=== PATIENT | female | born 2000 | race Hispanic/Latino ===

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

== ENCOUNTER 2021-12-25 20:35 | Emergency (ER) | payer BC ==
--- OUTSIDE RECORDS SUMMARY | 2021-12-25 20:38 | XMS REPORT | Continuity of Care Document ---
:2000 Author Organization [facility] t Address [address] [place] [address] Dr. Montemayor [address] [place] [id number] Care Team Providers Name Role Phone Garima Florez Attending Clinician Unavailable Problems This patient has no known problems. Allergies, Adverse Reactions, Alerts This patient has no known allergies or adverse reactions. Medications This patient has no known medications. Procedures This patient has no known procedures. Encounters Start End Encounter Admission Attending Care Care Encounter Source Date/Time Date/Time Type Type Clinicians Facility Department ID 2021-11-16 Outpatient ALIS Florez [facility] [id number] 11:48:14 Garima [id number] [facility] 2021-11-[address] [facility]amANA[facility] [id number] 11:48:09 [facility] [id number] [facility] 2021-11-[address] [facility]amJHON [facility] [id number] 11:42:04 Garima [id number] [facility] Results This patient has no known results.
[2021-12-25] MEDS ORDERED: MORPHINE 4 MG/ML SYR ONE (22:33)
[2021-12-25] MEDS ORDERED: ONDANSETRON 4 MG/2 ML VIAL ONE (22:34)
[2021-12-25] MEDS ORDERED: NA CHLORIDE 0.9% 1,000 ML ONE (22:34)
[2021-12-25 23:14] LABS: Urine Blood Negative (Negative); Urine Glucose Negative (Negative); Urine Protein Negative (Negative); Urine Specific Gravity >=1.030 (1.005-1.030); Urine pH 5.5 (5.0-7.0)
[2021-12-25 23:27] LABS: Protime INR 1.05
[2021-12-25 23:28] LABS: Absolute Lymphocytes (CBC) 2.8 K/uL (0.7-4.9); MPV 8.7 fL (7.6-11.3); RBC Red Blood Cell Count 4.81 M/uL (3.86-4.86)
[2021-12-25 23:31] LABS: Urine Bacteria <20 /HPF (<20); Urine RBC <5 /HPF (NONE SEEN); Urine Urothelial Cells <5 /HPF (NONE SEEN)
[2021-12-25 23:32] LABS: Urine Specific Gravity/Preg >1.030 (1.005-1.030)
[2021-12-25 23:34] LABS: Barbiturates NEGATIVE (NEGATIVE); Benzodiazepines NEGATIVE (NEGATIVE); Cocaine NEGATIVE (NEGATIVE); METHAMPHETAM NEGATIVE (NEGATIVE); Methadone NEGATIVE (NEGATIVE); Opiates NEGATIVE (NEGATIVE); Phencyclidine NEGATIVE (NEGATIVE); THC Cannibis NEGATIVE (NEGATIVE)
[2021-12-25 23:43] LABS: ALT/SGPT 31 U/L (12-78); AST/SGOT 14 U/L (15-37); Albumin 3.6 g/dL (3.4-5.0); Alkaline Phosphatase 83 U/L (45-117); BUN Blood Urea Nitrogen 16 mg/dL (7-18); Bicarbonate 24 mmol/L (21-32); Bilirubin Total 0.1 mg/dL (0.2-1.0); Creatine Phosphokinase 95 U/L (26-192); Glucose Level 117 mg/dL (74-106); NT PRO-BNP 13 pg/mL (<125); Potassium 3.7 mmol/L (3.5-5.1); Protein, Total 7.5 g/dL (6.4-8.2); Sodium Level 138 mmol/L (136-145)
[2021-12-25 23:58] LABS: Bilirubin Direct < 0.1 mg/dL (0-0.2); Troponin High Sensitivity < 3.00 pg/mL (<58.9)
[2021-12-26] MEDS ORDERED: MORPHINE 4 MG/ML SYR ONE (01:23)
[2021-12-26 01:26] LABS: Anisocytosis 2+; Blood Morphology Comment NOTED (NOT SEEN); Platelet Estimate ADEQ; White Blood Cell Scan OK (OK)
[2021-12-26] MEDS ORDERED: KETOROLAC 30 MG/ML INJ ONE (01:27)
--- NOTE | 2021-12-26 01:36 | ER ---
Nurse's Notes [facility] Name: Chayo Jung Age: 21 yrs Sex: Female : 2000 Arrival Date: 12/25/2021 Time: 20:38 Bed 16 Private MD: Diagnosis: Low back pain;Chest pain, unspecified;Constipation Presentation: 12/25 21:08 Chief complaint: Patient states: I having really bad back pains, I've had them for a vc1 few months now, It's now getting worse, it feels like there's a knife in my back stabbing me. I'm now having chest pain on and off when I breath. Coronavirus screen: Vaccine status: Patient reports receiving the 2nd dose of the covid vaccine. Moderna At this time, the client does not indicate any symptoms associated with coronavirus-19. Ebola Screen: No symptoms or risks identified at this time. Initial Sepsis Screen: Does the patient meet any 2 criteria? No. Patient's initial sepsis screen is negative. Does the patient have a suspected source of infection? No. Patient's initial sepsis screen is negative. Risk Assessment: Do you want to hurt yourself or someone else? Patient reports no desire to harm self or others. Onset of symptoms is unknown. 21:08 Method Of Arrival: Ambulatory vc1 21:08 Acuity: RJ 3 vc1 Triage Assessment: 21:11 General: Appears in no apparent distress. uncomfortable, Behavior is calm, cooperative, vc1 appropriate for age. Pain: Complains of pain in right mid back Pain radiates to left mid back Pain currently is 10 out of 10 on a pain scale. Quality of pain is described as sharp, stabbing. Neuro: Level of Consciousness is awake, alert, obeys commands, Oriented to person, place, time, situation, none. Cardiovascular: Reports chest pain, shortness of breath, With breathing Patient's skin is warm and dry. GI: Patient currently denies abdominal pain, nausea. Musculoskeletal: Circulation, motion, and sensation intact. Reports pain in right mid back. 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 - Social history:: Smoking status: Patient denies any tobacco usage or history of. Screenin:15 Abuse screen: Denies threats or abuse. Nutritional screening: No deficits noted. vc1 Tuberculosis screening: No symptoms or risk factors identified. Fall Risk None identified. Assessment: 21:50 General: Appears uncomfortable, Behavior is calm, cooperative. Pain: Complains of pain ll3 in right flank and left mid back and back and right mid back, chest. Neuro: Level of Consciousness is awake, alert, obeys commands, Oriented to person, place, time, situation. Cardiovascular: Reports chest pain, Patient's skin is warm and dry. Respiratory: Respiratory effort is even, unlabored, Respiratory pattern is regular, symmetrical. Derm: Skin is pink, warm \\T\\ dry. Musculoskeletal: Circulation, motion, and sensation intact. Reports pain in left mid back and right mid back since Years. Pain is 8 out of 10 on a pain scale. 23:41 Reassessment: Patient and/or family updated on plan of care and expected duration. Pain ll3 level reassessed. Patient is alert, oriented x 3, equal unlabored respirations, skin warm/dry/pink. Pain is feeling better, 5/10. 07 00:52 Reassessment: Patient and/or family updated on plan of care and expected duration. Pain ll3 level reassessed. Patient is alert, oriented x 3, equal unlabored respirations, skin warm/dry/pink. States pain is 6/10, declines pain meds, states "It only hurts when I move". 01:52 Reassessment: Patient and/or family updated on plan of care and expected duration. Pain ll3 level reassessed. Patient is alert, oriented x 3, equal unlabored respirations, skin warm/dry/pink. Patient states feeling better. 01:52 GI: Bowel sounds present X 4 quads. Abd is soft and non tender X 4 quads. ll3 Vital Signs: 12/25 21:08 BP 123 / 77; Pulse 72; Resp 18; Temp 98.4(O); Pulse Ox 99% on R/A; Weight 81.65 kg; vc1 Height 5 ft. 6 in. (167.64 cm); Pain 10/10; 22:45 BP 117 / 83; Pulse 72; Resp 15; Pulse Ox 98% on R/A; ll3 23:44 BP 119 / 54; Pulse 66; Resp 16; Pulse Ox 100% on R/A; ll3 12/26 00:30 BP 118 / 62; Pulse 59; Resp 15; Pulse Ox 99% on R/A; ll3 01:52 BP 98 / 60; Pulse 78; Resp 16; Pulse Ox 99% on R/A; ll3 12/25 21:08 Body Mass Index 29.05 (81.65 kg, 167.64 cm) vc1 ED Course: 12/25 20:38 Patient arrived in ED. jj6 21:11 Triage completed. vc1 21:11 Arm band placed on right wrist. vc1 21:49 Santiago Meléndez MD is Attending Physician. mh7 22:35 XRAY Chest (1 view) In Process Unspecified. EDMS 23:22 Basic Metabolic Panel Sent. ll3 12/26 00:03 Antonio Glass, RN is Primary Nurse. ll3 00:34 CT Chest For PE Angio In Process Unspecified. EDMS 00:39 CT Abd/Pelvis - IV Contrast Only In Process Unspecified. EDMS 01:52 Patient has correct armband on for positive identification. Bed in low position. Call ll3 light in reach. Side rails up X 1. 02:12 No provider procedures requiring assistance completed. IV discontinued, intact, ll3 bleeding controlled, No redness/swelling at site. Pressure dressing applied. Administered Medications: 12/25 23:10 Drug: NS 0.9% 1000 ml Route: IV; Rate: 1000 ml; Site: right antecubital; vc1 12/26 01:51 Follow up: Response: No adverse reaction; IV Status: Completed infusion; IV Intake: ll3 1000ml 12/25 23:10 Drug: morphine 4 mg Route: IVP; Site: right antecubital; vc1 23:39 Follow up: Response: No adverse reaction ll3 23:10 Drug: Zofran (Ondansetron) 4 mg Route: IVP; Site: right antecubital; vc1 23:39 Follow up: Response: No adverse reaction 3 12/26 01:29 Drug: Ketorolac 30 mg Route: IVP; Site: right antecubital; 3 01:49 Follow up: Response: No adverse reaction 3 Intake: 01:51 IV: 1000ml; Total: 1000ml. 3 Outcome: 01:35 Discharge ordered by . tito 02:13 Discharged to home ambulatory. ll3 02:13 Condition: good 02:13 Discharge instructions given to patient, Instructed on discharge instructions, follow up and referral plans. medication usage, Demonstrated understanding of instructions, follow-up care, medications, Prescriptions given X 3. 02:13 Patient left the ED. 3 Signatures: Dispatcher [employer] EDMS Santiago Meléndez MD MD mh7 Sabra Michelle Lynsea RN RN ll3 Kaylyn Murguia RN RN vc1
--- NOTE | 2021-12-26 01:36 | EDPHYS ---
Physician Documentation [facility] Name: Chayo Jung Age: 21 yrs Sex: Female : 2000 Arrival Date: 12/25/2021 Time: 20:38 Bed 16 Private MD: ED Physician Santiago Meléndez HPI: 12/25 22:18 This 21 yrs old Female presents to ER via Ambulatory with complaints of mh7 Abdominal Pain, Chest Pressure, Low Back Pain. 22:19 The patient complains of pain in the right flank. The pain does not radiate. Onset: The mh7 symptoms/episode began/occurred 5 month(s) ago, and became worse 2 week(s) ago. Modifying factors: The symptoms are alleviated by nothing. the symptoms are aggravated by movement, palpation/percussion. Associated signs and symptoms: Pertinent negatives: diarrhea, dizziness, dysuria, fever, urinary frequency, headache, hematuria, nausea, pain radiating to the lower extremities, vomiting. Severity of pain: At its worst the pain was moderate 5 day(s) ago, in the emergency department the pain has improved moderately. 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 - Social history:: Smoking status: Patient denies any tobacco usage or history of. ROS: 22:19 Constitutional: Negative for fever, chills, and weight loss, Eyes: Negative for injury, mh7 pain, redness, and discharge, ENT: Negative for injury, pain, and discharge, Neck: Negative for injury, pain, and swelling. 22:19 Respiratory: Negative for shortness of breath, cough, wheezing, and pleuritic chest pain, Abdomen/GI: Negative for abdominal pain, nausea, vomiting, diarrhea, and constipation, : Negative for injury, bleeding, discharge, and swelling, MS/Extremity: Negative for injury and deformity, Skin: Negative for injury, rash, and discoloration, Neuro: Negative for headache, weakness, numbness, tingling, and seizure, Psych: Negative for depression, anxiety, suicide ideation, homicidal ideation, and hallucinations, Allergy/Immunology: Negative for hives, rash, and allergies, Endocrine: Negative for neck swelling, polydipsia, polyuria, polyphagia, and marked weight changes, Hematologic/Lymphatic: Negative for swollen nodes, abnormal bleeding, and unusual bruising. 22:19 Cardiovascular: Positive for chest pain, Intermittent over the past couple months, Negative for edema, orthopnea, palpitations, paroxysmal nocturnal dyspnea. Exam: 22:19 Constitutional: This is a well developed, well nourished patient who is awake, alert, mh7 and in no acute distress. Head/Face: Normocephalic, atraumatic. Eyes: Pupils equal round and reactive to light, extra-ocular motions intact. Lids and lashes normal. Conjunctiva and sclera are non-icteric and not injected. Cornea within normal limits. Periorbital areas with no swelling, redness, or edema. Neck: Trachea midline, no thyromegaly or masses palpated, and no cervical lymphadenopathy. Supple, full range of motion without nuchal rigidity, or vertebral point tenderness. No Meningismus. Chest/axilla: Normal chest wall appearance and motion. Nontender with no deformity. No lesions are appreciated. Cardiovascular: Regular rate and rhythm with a normal S1 and S2. No gallops, murmurs, or rubs. Normal PMI, no JVD. No pulse deficits. Respiratory: Lungs have equal breath sounds bilaterally, clear to auscultation and percussion. No rales, rhonchi or wheezes noted. No increased work of breathing, no retractions or nasal flaring. Abdomen/GI: Soft, non-tender, with normal bowel sounds. No distension or tympany. No guarding or rebound. No evidence of tenderness throughout. Skin: Warm, dry with normal turgor. Normal color with no rashes, no lesions, and no evidence of cellulitis. MS/ Extremity: Pulses equal, no cyanosis. Neurovascular intact. Full, normal range of motion. Neuro: Awake and alert, GCS 15, oriented to person, place, time, and situation. Cranial nerves II-XII grossly intact. Motor strength 5/5 in all extremities. Sensory grossly intact. Cerebellar exam normal. Normal gait. Psych: Awake, alert, with orientation to person, place and time. Behavior, mood, and affect are within normal limits. 22:19 Back: ROM is normal, normal spinal alignment noted, CVA tenderness, that is moderate, is noted on the right, muscle spasm, is not present, Straight leg raises: of both lower extremities does not illicit pain. 23:02 ECG was reviewed by the Attending Physician. [facility] Vital Signs: 21:08 BP 123 / 77; Pulse 72; Resp 18; Temp 98.4(O); Pulse Ox 99% on R/A; Weight 81.65 kg; vc1 Height 5 ft. 6 in. (167.64 cm); Pain 10/10; 22:45 BP 117 / 83; Pulse 72; Resp 15; Pulse Ox 98% on R/A; ll3 23:44 BP 119 / 54; Pulse 66; Resp 16; Pulse Ox 100% on R/A; ll3 12/26 00:30 BP 118 / 62; Pulse 59; Resp 15; Pulse Ox 99% on R/A; ll3 01:52 BP 98 / 60; Pulse 78; Resp 16; Pulse Ox 99% on R/A; ll3 12/25 21:08 Body Mass Index 29.05 (81.65 kg, 167.64 cm) vc1 MDM: 01:33 Differential diagnosis: nephrolithiasis, pyelonephritis, UTI, Chest pain, PE. Data [facility] reviewed: vital signs, nurses notes, lab test result(s), cardiac enzymes, CBC, electrolytes, urinalysis, UPT: negative EKG, radiologic studies, CT scan, plain films. Data interpreted: Pulse oximetry: on room air is 99 %. Interpretation: normal. Counseling: I had a detailed discussion with the patient and/or guardian regarding: the historical points, exam findings, and any diagnostic results supporting the discharge/admit diagnosis, lab results, radiology results, the need for outpatient follow up, to return to the emergency department if symptoms worsen or persist or if there are any questions or concerns that arise at home. Response to treatment: the patient's symptoms have markedly improved after treatment. 01:35 Patient medically screened. [facility] 12/25 22:13 Order name: Basic Metabolic Panel [facility] 12/25 22:13 Order name: CBC with Diff; Complete Time: 01:32 [facility] 12/25 22:13 Order name: LFT's; Complete Time: 00:03 [facility] 12/25 22:13 Order name: Magnesium; Complete Time: 00:03 [facility] 12/25 22:13 Order name: NT PRO-BNP; Complete Time: 00:03 [facility] 12/25 22:13 Order name: PT-INR; Complete Time: 23:36 [facility] 12/25 22:13 Order name: Troponin HS; Complete Time: 00:03 [facility] 12/25 22:13 Order name: Urine Drug Screen; Complete Time: 23:36 [facility] 12/25 22:13 Order name: Urine Microscopic Only; Complete Time: 23:36 [facility] 12/25 22:14 Order name: Basic Metabolic Panel; Complete Time: 00:03 [facility] 12/25 23:12 Order name: Urine Dipstick-Ancillary; Complete Time: 23:36 [facility] 12/25 23:17 Order name: Urine --Ancillary (enter results); Complete Time: 23:36 [facility] 12/25 23:23 Order name: Creatine Phosphokinase; Complete Time: 00:03 [facility] 12/25 22:13 Order name: XRAY Chest (1 view) [facility] 12/25 22:13 Order name: EKG; Complete Time: 22:14 [facility] 12/25 22:13 Order name: Cardiac monitoring; Complete Time: 01:53 [facility] 12/25 22:13 Order name: EKG - Nurse/Tech; Complete Time: 23:22 [facility] 12/25 22:13 Order name: IV Saline Lock; Complete Time: 23:22 [facility] 12/25 22:13 Order name: Labs collected and sent; Complete Time: 23:22 [facility] 12/25 22:13 Order name: O2 Per Protocol; Complete Time: 23:22 [facility] 12/25 22:13 Order name: O2 Sat Monitoring; Complete Time: 23:22 [facility] 12/25 22:13 Order name: Urine Dipstick-Ancillary (obtain specimen); Complete Time: 23:21 [facility] 12/25 23:33 Order name: CBC Smear Scan; Complete Time: 01:32 [facility] 12/25 23:40 Order name: CT Chest For PE Angio [facility] 12/25 23:40 Order name: CT Abd/Pelvis - IV Contrast Only [facility] 12/25 22:13 Order name: Urine Test (obtain specimen); Complete Time: 23:22 7 EC/06 23:02 Rate is 65 beats/min. Rhythm is regular, Normal Sinus Rhythm with No ectopy. QRS [place] [facility] is Normal. RI interval is normal. QRS interval is normal. QT interval is normal. No Q waves. T waves are Normal. No ST changes noted. Clinical impression: Normal ECG. Administered Medications: 23:10 Drug: NS 0.9% 1000 ml Route: IV; Rate: 1000 ml; Site: right antecubital; vc1 12/26 01:51 Follow up: Response: No adverse reaction; IV Status: Completed infusion; IV Intake: ll3 1000ml 12/25 23:10 Drug: morphine 4 mg Route: IVP; Site: right antecubital; vc1 23:39 Follow up: Response: No adverse reaction 3 23:10 Drug: Zofran (Ondansetron) 4 mg Route: IVP; Site: right antecubital; vc1 23:39 Follow up: Response: No adverse reaction [facility] 12/26 01:29 Drug: Ketorolac 30 mg Route: IVP; Site: right antecubital; ll3 01:49 Follow up: Response: No adverse reaction 3 Disposition Summary: 12/26/21 01:35 Discharge Ordered Location: Home [facility] Problem: an ongoing problem [facility] Symptoms: have improved [facility] Condition: Stable [facility] Diagnosis - Low back pain 7 - Chest pain, unspecified 7 - Constipation 7 Followup: [facility] - With: Private Physician - When: 2 - 3 days - Reason: Worsening of condition, Recheck today's complaints, Continuance of care, Re-evaluation by your physician Discharge Instructions: - Discharge Summary Sheet 7 - High-Fiber Diet mh7 - Musculoskeletal Pain mh7 - Constipation, Adult, [id number] mh7 - Nonspecific Chest Pain, Adult, [id number] [facility] Forms: - Medication Reconciliation Form 7 - Thank You Letter 7 - Antibiotic Education 7 - Prescription Opioid Use 7 - Work release form ll3 - Family Work Release ll3 Prescriptions: - Dulcolax (bisacodyl) 10 mg Rectal suppository - insert 1 suppository by RECTAL route once daily as needed for constipation; 5 7 suppository; Refills: 0, Product Selection Permitted - Colace 100 mg Oral Tablet - take 1 tablet by ORAL route every 12 hours; 14 tablet; Refills: 0, Product [facility] Selection Permitted - Lactulose 10 gram/15 mL Oral Solution - take 30 milliliters by ORAL route once daily As needed; 150 milliliter; mh7 Refills: 0, Product Selection Permitted Signatures: Dispatcher [employer] Santiago Whitman MD MD mh7 Antonio Glass RN RN ll3 Kaylyn Murguia RN RN vc1 Corrections: (The following items were deleted from the chart) 12/25 23:23 22:23 CREATINE PHOSPHOKINASE+[id number].BRZ ordered. BETSYLA BETSYLA
[2021-12-26 02:33] VITALS: TEMP 98.4
[2021-12-26 02:37] VITALS: O2SAT 99
[2021-12-26 02:38] VITALS: BP 98/60
--- NOTE | 2021-12-26 08:24 | RAD REPORT ---
EXAM DESCRIPTION: RAD - Chest Single View - 12/25/2021 10:35 pm CLINICAL HISTORY: CHEST PAIN, left side COMPARISON: None TECHNIQUE: AP portable chest image was obtained 12/25/2021 10:35 pm . FINDINGS: Lungs are clear. Heart and vasculature are normal. No measurable pleural effusion and no p neumothorax. No acute bony abnormality seen. No acute aortic findings suspected. IMPRESSION: No acute cardiopulmonary process.
--- NOTE | 2021-12-26 13:31 | RAD REPORT ---
EXAM DESCRIPTION: CT - Abdomen Pelvis W Contrast - 12/26/2021 5:24 am CLINICAL HISTORY: 21 years Female, FLANK PAIN TECHNIQUE: Helical CT axial images are obtained from the lung bases to the pubic symphysis without I V contrast. No oral contrast was administered. Multiplanar reconstruction. This exam was performed ac cording to our departmental dose-optimization program, which includes automated exposure control, adj ustment of the mA and/or kV according to patient size and/or use of iterative reconstruction techniqu e. COMPARISON: 01/05/2018 FINDINGS: LUNG BASES: No basilar consolidation or effusions. LIVER: Normal in size. Normal attenuation. No focal masses. HEPATOBILIARY: Normal-appearing gallbladder. No intra- or extrahepatic ductal dilatation. SPLEEN: Normal size. PANCREAS: Normal size and contour. No focal mass. ADRENAL GLANDS: Normal size. No adrenal masses. KIDNEYS: Bilateral kidneys are normal in size without obstructing calculi or hydronephrosis. No ne phrolithiasis. No significant cysts are present. BOWEL AND MESENTERY: Moderate stool burden within the cecum, ascending, and transverse colon. No sma ll or large bowel dilatation. No colonic diverticulosis. The appendix is not visualized, no secondary signs of appendicitis. No abnormal mesenteric lymphadenopathy. No free fluid or pneumoperitoneum . RETROPERITONEUM: Normal caliber abdominal aorta without aneurysm. No abnormal retroperitoneal lympha denopathy. PELVIS: Urinary bladder is unremarkable. Uterus and adnexal structures are unremarkable. ABDOMINAL WALL: The abdominal wall is intact. BONES: No suspicious osseous lytic or blastic lesions seen. IMPRESSION: 1. No nephroureterolithiasis or obstructive uropathy. 2. No acute intra-abdominal or pelvic disease. 3. Moderate stool burden without bowel dilatation involving the right and transverse colon, rule ou t constipation. Electronically signed by: Bryon Kramer MD 12/26/2021 12:57 AM RECREATIONAL VEHICLE RESORT MANAGER Due to temporary technical issues with the PACS/Fluency reporting system, reports are being signed by the in house radiologist without review as a courtesy to ensure prompt reporting. The interpreting r adiologist is fully responsible for the content of the report.
--- NOTE | 2021-12-26 13:33 | RAD REPORT ---
EXAM DESCRIPTION: CT - Chest For Pe Angio - 12/26/2021 5:24 am CLINICAL HISTORY: 21 years Female, CHEST PAIN TECHNIQUE: Helical CT axial images of the thorax with IV contrast. Multiplanar reconstruction. MIP r econstruction plus or minus 3D image processing was also performed. This exam was performed according to our departmental dose-optimization program, which includes automated exposure control, adjustment of the mA and/or kV according to patient size and/or use of iterative reconstruction technique. COMPARISON: None. FINDINGS: VASCULAR: Pulmonary arteries are patent bilaterally without filling defects or intralumin al thrombus. Thoracic aorta is normal in caliber without aneurysm. No aortic dissection. The pulmonar y vasculature demonstrates no significant dilatation. LUNGS: The lung parenchyma is clear. No pulmonary masses or suspicious nodules. MEDIASTINUM: No abnormally enlarged mediastinal or hilar lymph nodes. PLEURA: No pleural effusion. No pneumothorax. CARDIAC: Normal heart size. No pericardial effusion. CHEST WALL: Chest wall is intact. No abnormal axillary lymphadenopathy. BONES: No suspicious osseous lytic or blastic lesions seen. UPPER ABDOMEN: The visualized upper abdomen demonstrates no acute abnormality. IMPRESSION: 1. No acute pulmonary embolus. 2. No acute cardiopulmonary disease. Negative examination. Electronically signed by: Bryon Kramer MD 12/26/2021 12:59 AM CONTROL PANEL OPERATOR Due to temporary technical issues with the PACS/Fluency reporting system, reports are being signed by the in house radiologist without review as a courtesy to ensure prompt reporting. The interpreting r adiologist is fully responsible for the content of the report.
== END 2021-12-26 02:13 | disposition home or self-care (01) ==
LOC: ER 20:35
DX: R07.9 Chest pain, unspecified (principal); M54.50 Low back pain, unspecified
CPT/HCPCS: 93005; 85025; 80048; 36415; 83735; 82550; 81025; 85610; 80076; 84484; 83880; 80307; 71275; 74177; 71045; Q9967; J7030; J2405; 81003; 81015; 96361; 96374; 96375; 99284

== ENCOUNTER 2025-01-27 13:46 | Emergency (ER) | payer BC, SELFPAY ==
--- OUTSIDE RECORDS SUMMARY | 2025-01-27 13:54 | XMS REPORT | Continuity of Care Document ---
Author Name Unknown Address [address] [place] [address] [facility] Address [address] [place] [address] Care Team Providers Care Financial Specialist Name Role Phone PCP, NO Primary Care Physician Unavailab Garima Nam Attending Clinician Unavailable ADROSELYN ROCHE Attending Clinician Unavailable ADROSELYN ROCHE Attending Clinician Unavailable Doctor Unassigned, [place] Attending Clinician U Roselyn Conklin MD Attending Clinician [phone] JUDIE MAYER Attending Clinician Unavailable JUDIE MAYER Attending Clinician Unavailable Cassidy FLOOR COVERERJudie Attending Clinician [phone] Purvi Alvarez CRNA Attending Clinician [phone] Ade Bustos MD Attending Clinician + Pob, 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 Attending Clinician Unavailabl e ROSCOE COSTELLO Attending Clinician Unavailable ROSCOE COSTELLO Attending Clinician Unavailable Ultrasound, [facility] Attending Clinician Unavaila ble Car DO [place] Attending Clinician [phone] Unknown, Attending Attending Clinician Unavailab AUSTEN Camejo Attending Clinician Unavailable AUSTEN PEREZ Attending Clinician Unavailable Austen Perez MD Attending Clinician [phone] MED CONROY Attending Clinician Unav MED Aguilar Attending Clinician Unav Med Aguilar MD Attending Clinician + CAROLINE FERNÁNDEZ Attending Clinician Unavailable Caroline Castorena Attending Clinician [phone] Unknown, Attending Attending Clinician Unavailab LISANDRO Hernández Attending Clinician Unavailable LISANDRO MATTA Attending Clinician Unavailable LISANDRO MATTA Attending Clinician Unavailable 1, [facility] Room Attending Clinician Unavailab MORRO Sumner Attending Clinician Unavailable 2, [facility] Lab Attending Clinician Unavailable Doctor Unassigned, [place] Attending Clinician U navailable Nurse, [facility] Attending Clinician Un available Nurse, [facility] Attending Clinician Unavailable Jeffy Mejia CRNA Attending Clinician [phone] Abhilash Castillo MD Attending Clinician Hallie Moya NP Attending Clinician + [phone] GARRY PEREZ Attending Clinician Unavailable Darryl DIAMOND, Garry Cano Attending Clinician [phone] Ultrasound, [facility] Attending Clinician Unavaila Chris Cavanaugh MD Attending Clinician + CHRIS CASEY Attending Clinician Unav ailable GEOVANI ISBELL Attending Clinician Unavailable Kristal Ortega Attending Clinician Unavailmarvin Isbell MD, Geovani Chow Attending Clinician [phone] Scotty RNCee Attending Clinician Unavailable Yecenia Song PA-C Attending Clinician [phone] YECENIA SONG Attending Clinician Unavailable PRAVIN PERRY Attending Clinician Unavailable Carole Mota RN Attending Clinician Unavail able ROSELYN WISE Admitting Clinician Unavailable JUDIE MAYER Admitting Clinician Unavailable ROSELYN WISE Admitting Clinician Unavailable Roselyn Wise MD Admitting Clinician [phone] AUSTEN PEREZ Admitting Clinician Unavailable Austen Perez MD Admitting Clinician [phone] AUSTEN PEREZ Admitting Clinician Unavailable Payers Payer Name Policy Type Policy Number Effective Date Expirati on Date Source [facility] [id number] 2021 00:00:00 2023 00:00:00 [facility] [id number] 2022 00:00:00 [place] [id number] 2023 00:00:00 Problems Condition Name Condition Details Condition Category Status Onset Date Resolution Date Last Treatment Date Treating Clinician Comments Source 34 weeks gestation of 34 weeks gestation of Disease Active 2023-10 0-06 00:00: 00 [facility] 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 Found on Horizon genetic carrier [facility] Obesity (BMI 30-39.9) Obesity (BMI 30-39.9) Disease Active 2021-10 0-04 00:00: 00 [facility] Surgery, elective Surgery, elective Disease Resolve d 2023-10 1-07 00:00: 00 2024-10-01 00:00:00 2024-10-01 16:12:24 [facility] Irregular uterine contractio ns Irregular uterine contractio ns Disease Resolve d 2023-10 0-06 00:00: 00 2024-10-01 00:00:00 2024-10-01 16:12:31 [facility] Dehydratio n during Dehydratio n during Disease Resolve d 2023-10 0-06 00:00: 00 2024-09-10 00:00:00 2024-09-10 15:14:35 [facility] 39 weeks gestation of 39 weeks gestation of Disease Resolve d 2023-10 0-06 00:00: 00 2024-09-10 00:00:00 2024-09-10 15:14:38 [facility] High-risk in third trimester High-risk in third trimester Disease Resolve d 9-10 00:00: 00 2024-09-10 00:00:00 2024-09-10 15:14:34 [facility] Liveborn , of aldridge , born in hospital by delivery Liveborn infant, of aldridge , born in hospital by delivery Disease Resolve d 2023-10 1- 00:00: 00 2024-09-03 00:00:00 2024-09-03 15:24:59 [facility] Previous section complicati ng Previous section complicati ng Disease Resolve d 2023-0 4-02 00:00: 00 2024-09-03 00:00:00 2024-09-03 15:24:59 [facility] High-risk in first trimester High-risk in first trimester Disease Resolve d 2023-0 4-02 00:00: 00 2024-09-03 00:00:00 2024-09-03 15:24:59 [facility] Maternal care for decelerati ons during Maternal care for decelerati ons during Disease Resolve d 2022-0 5-15 00:00: 00 2023-04-03 00:00:00 2023-04-03 19:10:49 [facility] 39 weeks gestation of 39 weeks gestation of Disease Resolve d 2022-0 5-15 00:00: 00 2023-04-03 00:00:00 2023-04-03 19:10:51 [facility] Liveborn infant, of aldridge , born in hospital by delivery Liveborn infant, of aldridge , born in hospital by delivery Disease Resolve d 2022-0 5-15 00:00: 00 2023-04-03 00:00:00 2023-04-03 19:10:48 [facility] Encounter for supervisio n of normal first in first trimester Encounter for supervisio n of normal first in first trimester Disease Resolve d 2021-1 0-04 00:00: 00 2023-03-05 00:00:00 2023-03-05 04:54:22 [facility] Less than 8 weeks gestation of Less than 8 weeks gestation of Disease Resolve d 2021-1 0-04 00:00: 00 2023-03-05 00:00:00 2023-03-05 04:54:20 [facility] Allergies, Adverse Reactions, Alerts Allergy Name Allergy Type Status Severity Reaction(s) Onset Date Inactive Date Treating Clinician Comments Source NO KNOWN ALLERGIE S Drug Class Active [facility] Social History Social Habit Start Date Stop Date Quantity Comments Source ASSERTION 2023-12-13 00:00:00 [facility] function 2024-05-17 00:00:00 2024-05-17 00:00:00 [facility] Alcohol intake 2024-02-11 00:00:00 2024-02-11 00:00:00 Lifetime non-drinker (finding) [facility] Alcoholic beverage intake 2024-02-11 00:00:00 2024-02-11 00:00:00 Lifetime non-drinker (finding) [facility] Exposure to SARS-CoV-2 (event) 2023-04-15 00:00:00 2023-04-25 18:58:00 Not sure [facility] Tobacco use and exposure 2022-07-25 00:00:00 2022-07-25 00:00:00 Smokeless tobacco non-user [facility] Sex assigned at 2001 00:00:00 2000 00:00:00 [facility] Smoking Status Start Date Stop Date Source Never smoked tobacco [facility] Medications Ordered Medication Name Filled Medication Name Start Date Stop Date Current Medication? Ordering Clinician Indication Dosage Frequency Signature (SIG) Comments Components Source norgestimat e-ethinyl estradioL 0.25-35 mg-mcg per tablet 2023-10 00:00: 00 Yes [id number] 1{tbl} Take 1 tablet by mouth in the morning. [facility] iopamidol (ISOVUE 370-500 mL) injection 80 mL 2023-10 04:15: 00 09-02 04:15 :00 No [id number] 80mL 80 mL, Intravenou s, ONCE, 1 dose, On 09/01/24 at 2215, Routine [facility] ibuprofen (IBU) tablet 800 mg 2023-10 15:00: 00 Yes 800mg 800 mg, Oral, Q8H ABX, First dose on Sun08/29/24 at 0900, Until Discontinu ed, Routine [facility] docusate (COLACE) capsule 200 mg 2023-10 15:00: 00 Yes 200mg 200 mg, Oral, DAILY, First dose on Sun08/29/24 at 0900, Until Discontinu ed, Routine [facility] acetaminoph en (TYLENOL) tablet 1,000 mg 2023-10 02:00: 00 08-29 14:21 :00 No 1000mg 1,000 mg, Oral, Q12H, 2 doses, First dose on Theresa 08/28/24 at 2000, Last dose on Sun08/29/24 at 0800, Routine [facility] docusate 100 mg capsule 2023-10 00:00: 00 10-01 00:00 :00 No [id number] 200mg Take 2 capsules by mouth once daily as needed for Constipati on. [facility] ferrous sulfate 325 mg (65 mg iron) tablet 2023-10 00:00: 00 10-01 00:00 :00 No [id number] 325mg Take 1 tablet by mouth in the morning. [facility] ibuprofen 800 mg tablet 2023-10 00:00: 00 10-01 00:00 :00 No [id number] 800mg Take 1 tablet by mouth every 8 (eight) hours as needed (pain). Take with food or milk. [facility] vitamin w/FA tablet 2023-10 00:00: 00 10-01 00:00 :00 No [id number] 1{tbl} Take 1 tablet by mouth in the morning. [facility] acetaminoph en 500 mg tablet 2023-10 00:00: 00 10-01 00:00 :00 No [id number] 1000mg Take 2 tablets by mouth every 8 (eight) hours as needed for Pain. [facility] gabapentin 300 mg capsule 2023-10 00:00: 00 09-10 00:00 :00 No [id number] 300mg Take 1 capsule by mouth in the morning and 1 capsule at noon and 1 capsule in the evening. [facility] oxyCODONE 5 mg immediate release tablet 2023-10 00:00: 00 09-06 05:59 :00 No [id number] 5mg Take 1 tablet by mouth every 6 (six) hours as needed (pain) for up to 7 days. Indication s: acute pain [facility] ketorolac (TORADOL) injection 30 mg 2023-10 21:00: 00 08-29 08:59 :00 No 30mg 30 mg, Slow IV Push, Q6H ABX, 3 doses, First dose on Sun08/28/24 at 1500, Last dose on Sun08/29/24 at 0300, Routine [facility] gabapentin (NEURONTIN) capsule 300 mg 2023-10 20:00: 00 Yes 300mg 300 mg, Oral, TID, First dose on Sun08/28/24 at 1400, Until Discontinu ed, [facility] sim[facility]ic[facility] (GAS RELIEF (SIMETHICON E)) chewable tablet 160 mg 2023-10 20:00: 00 Yes 160mg 160 mg, Oral, TID, First dose on Sun08/28/24 at 1400, Until Discontinu ed, Routine [facility] oxyCODONE immediate release tablet 5 mg 2023-10 15:23: 05 Yes 5mg [facility] diphenhydrA MINE (BENADRYL) injection 25 mg 2023-10 15:16: 13 Yes 25mg [facility] diphenhydrA MINE (BENADRYL) tablet 25 mg 2023-10 15:16: 13 Yes 25mg [facility] ondans[facility]ron (ZOFRAN (PF)) injection 4 mg 2023-10 15:16: 13 Yes 4mg 4 mg, Slow IV Push, Q8HPRN, Starting on Sun08/28/24 at 0916, Until Discontinu ed, Routine, Nausea and Vomiting (N/V) [facility] bisacodyL (DULCOLAX) suppository 10 mg 2023-10 15:16: 12 Yes 10mg [facility] magnesium hydroxide (MILK OF MAGNESIA) 400 mg/5 mL suspension 30 mL 2023-10 15:16: 12 Yes [address] [facility] lactated ringers IV infusion 1,000 mL 2023-10 15:16: 12 Yes 1000[address] [facility] ketorolac (TORADOL) injection 2023-10 14:51: 00 08-28 15:09 :26 No Slow IV Push, ONCE INTRA PROCEDURE, Starting on Theresa 08/28/24 at 0851, Until Theresa 08/28/24 at 0909, Routine, Intra-op [facility] acetaminoph en (OFIRMEV) IV piggyback 2023-10 14:34: 00 08-28 15:09 :26 No IV Infusion, Administer over 15 Minutes, ONCE INTRA PROCEDURE, Starting on Theresa 08/28/24 at 0834, Until Theresa 08/28/24 at 0909, Routine, Intra-op [facility] NaCl 0.9% (NS) IV infusion 2023-10 14:22: 00 08-28 15:09 :26 No IV Infusion, CONTINUOUS PRN, Starting on Theresa 08/28/24 at 0822, Until Theresa 08/28/24 at 0909, Routine, Intra-op [facility] oxytocin (PITOCIN) 30 units in NS 500 mL IV infusion 2023-10 14:20: 00 08-28 15:09 :26 No IV Infusion, CONTINUOUS PRN, Starting on Theresa 08/28/24 at 0820, Until Theresa 08/28/24 at 0909, Routine, Intra-op [facility] ondansetron (ZOFRAN (PF)) injection 2023-10 14:13: 00 08-28 15:09 :26 No Slow IV Push, ONCE INTRA PROCEDURE, Starting on Theresa 08/28/24 at 0813, Until Theresa 08/28/24 at 0909, Routine, Intra-op [facility] morpHINE PF (DURAMORPH- PF) injection 2023-10 13:46: 00 08-28 15:09 :26 No Epidural, ONCE INTRA PROCEDURE, Starting on Theresa 08/28/24 at 0746, Until Theresa 08/28/24 at 0909, Routine, Intra-op [facility] PHENYLephri ne 1000 mcg/10 mL in 0.9% NaCl syringe 2023-10 13:46: 00 08-28 15:09 :26 No Slow IV Push, CONTINUOUS PRN, Starting on Theresa 08/28/24 at 0746, Until Theresa 08/28/24 at 0909, Routine, Intra-op [facility] EPINEPHrine 1:10,000 injection 2023-10 13:46: 00 08-28 15:09 :26 No IV Push, ONCE INTRA PROCEDURE, Starting on Theresa 08/28/24 at 0746, Until Theresa 08/28/24 at 0909, Routine, Intra-op [facility] FENTanyl (PF) (SUBLIMAZE) injection 2023-10 13:46: 00 08-28 15:09 :26 No Epidural, ONCE INTRA PROCEDURE, Starting on Theresa 08/28/24 at 0746, Until Theresa 08/28/24 at 0909, Routine, Intra-op [facility] bupivacaine -dextrose-w ater-pf (MARCAINE SPINAL (PF)) 0.75 % (7.5 mg/mL) injection 2023-10 13:46: 00 08-28 15:09 :26 No Intraspina l, ONCE INTRA PROCEDURE, Starting on Theresa 08/28/24 at 0746, Until Theresa 08/28/24 at 0909, Routine, Intra-op [facility] lactated ringers IV infusion 250 mL 2023-10 12:15: 00 08-28 12:58 :00 No 250mL at 999 mL/hr, 250 mL, IV Infusion, ONCE, 1 dose, On Theresa 08/28/24 at 0615, Routine [facility] acetaminoph en (TYLENOL) tablet 650 mg 2023-10 12:15: 00 08-28 12:58 :00 No 650mg 650 mg, Oral, ONCE, 1 dose, On Theresa 24 at 0615, Routine [facility] ceFAZolin (ANCEF) 2,000 mg in NaCl 0.9% (NS) 100 mL MINI-BAG 2023-10 12:02: 38 08-28 14:02 :00 No 2000mg 2,000 mg, IV Piggyback, O.R. 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, Duration of therapy: within 24 hours of surgery [facility] sodium citrate-cit toñito acid (BICITRA) 500-334 mg/5 mL solution 30 mL 2023-10 12:02: 38 08-28 13:33 :00 No 30mL 30 mL, Oral, PRE-PROCED URE ONCE, 1 dose, Starting on Theresa 08/28/24 at 0602, Until Theresa 08/28/24 at 0733, Routine, Surgery/Pr ocedure [facility] D5W-LR IV infusion 1,000 mL 2023-10 007 01:00: 00 07-28 00:06 :12 No 1000mL at 999 mL/hr, IV Infusion, ONCE, 1 dose, On Sun07/27/24 at 1999, Routine [facility] terbutaline (BRETHINE) injection 0.25 mg 2023-10 007 01:00: 00 07-28 00:06 :00 No .25mg 0.25 mg, Subcutaneo us, ONCE, 1 dose, On Sun07/27/24 at 1999, Routine [facility] NaCl 0.9% (NS) IV infusion 1,000 mL 2023-10 006 23:00: 00 07-27 22:34 :45 No 1000mL at 999 mL/hr, IV Infusion, ONCE, 1 dose, On Sun07/27/24 at 1800, Routine [facility] amoxicillin -clavulanat e (AUGMENTIN) 875-125 mg per tablet 05-20 00:00: 00 05-26 04:59 :00 No [id number] 1{tbl} Take 1 tablet by mouth in the morning and 1 tablet in the evening. Do all this for 5 days. [facility] cefdinir 300 mg capsule 05-17 00:00: 00 05-20 00:00 :00 No [id number] 600mg Take 2 capsules by mouth in the morning for 7 days. [facility] 25/iron fum/folic/d ashley (-1 ORAL) 04-03 19:21: 03 04-03 00:00 :00 No Take by mouth. [facility] norgestrel- ethinyl estradioL 0.3-30 mg-mcg per tablet 04-03 00:00: 00 06-03 00:00 :00 No [id number] 1{tbl} Take 1 tablet by mouth in the morning. [facility] 25/iron fum/folic/d ashley (-1 ORAL) 03-09 10:09: 13 Yes Take by mouth. [facility] ibuprofen (IBU) tablet 600 mg 03-07 17:00: 00 Yes 600mg 600 mg, Oral, Q6H ABX, First dose on Sun03/07/23 at 1200, Until Discontinu ed, Routine [facility] 25/iron fum/folic/d ashley (-1 ORAL) 03-07 12:11: 41 Yes Take by mouth. [facility] vitamin w/FA tablet 03-07 00:00: 00 Yes [id number] 1{tbl} Take 1 tablet by mouth in the morning. [facility] vitamin w/FA tablet 03-07 00:00: 00 09-10 00:00 :00 No [id number] 1{tbl} Take 1 tablet by mouth in the morning. [facility] gabapentin 300 mg capsule 03-07 00:00: 00 04-03 00:00 :00 No [id number] 300mg Take 1 capsule by mouth in the morning and 1 capsule at noon and 1 capsule in the evening. [facility] ibuprofen 600 mg tablet 03-07 00:00: 00 04-03 00:00 :00 No [id number] 600mg Take 1 tablet by mouth every 6 (six) hours. [facility] docusate 100 mg capsule 03-07 00:00: 00 04-03 00:00 :00 No [id number] 200mg Take 2 capsules by mouth once daily as needed for Constipati on. [facility] ferrous sulfate 325 mg (65 mg iron) tablet 03-07 00:00: 00 04-03 00:00 :00 No [id number] 325mg Take 1 tablet by mouth in the morning and 1 tablet in the evening. [facility] 28 mg iron- 800 mcg Tab 03-07 00:00: 00 04-03 00:00 :00 No 1{tbl} Take 1 tablet by mouth every morning. [facility] HYDROcodone -acetaminop hen 5-325 mg tablet 03-07 00:00: 00 03-15 04:59 :00 No [id number] 1{tbl} Take 1 tablet by mouth every 6 (six) hours as needed for Pain (scale 7-10) (Alternate with Ibuprofen) for up to 7 days. Indication s: acute pain [facility] ketorolac (TORADOL) injection 30 mg 03-06 17:00: 00 03-07 16:59 :00 No 30mg 30 mg, Slow IV Push, Q6H ABX, 4 doses, First dose on Sun03/06/23 at 1200, Last dose on Sun03/07/23 at 0600, Routine [facility] sennosides (SENOKOT) tablet 8.6 mg 03-06 14:00: 00 Yes 8.6mg 8.6 mg, Oral, DAILY, First dose on Sun03/06/23 at 0900, Until Discontinu ed, Routine [facility] docusate (COLACE) capsule 100 mg 03-06 14:00: 00 Yes 100mg 100 mg, Oral, DAILY, First dose on Sun03/06/23 at 0900, Until Discontinu ed, Routine [facility] gabapentin (NEURONTIN) capsule 300 mg 03-06 13:00: 00 Yes 300mg 300 mg, Oral, TID, First dose on Sun03/06/23 at 0800, Until Discontinu ed, Routine [facility] acetaminoph en (TYLENOL) tablet 650 mg 03-06 11:00: 00 Yes 650mg 650 mg, Oral, Q6H ABX, First dose on Sun03/06/23 at 0600, Until Discontinu ed, Routine [facility] diphenhydrA MINE (BENADRYL) tablet 25 mg 03-06 07:19: 10 Yes 25mg 25 mg, Oral, Q4HPRN, Starting on Sun03/06/23 at 0219, Until Discontinu ed, Routine, Itching, PACU [facility] naloxone (NARCAN) injection 0.4 mg 03-06 07:19: 10 03-08 07:18 :10 No .4mg 0.4 mg, Slow IV Push, PRN - SEE INSTRUCTIO NS, Starting on Sun03/06/23 at 021, Until Sun03/08/23 at 0218, Routine, Analgesia Recovery, PACU [facility] rho(D) immune globulin (RHOGAM) syringe 300 mcg 03-06 02:34: 26 Yes 300ug 300 mcg, Intramuscu lar, ONCE, For 1 dose, Conditiona l, Routine [facility] HYDROcodone -acetaminop hen (NORCO 5) 5-325 mg tablet 1 tablet 03-06 02:34: 20 Yes 1{tbl} 1 tablet, Oral, Q6HPRN, Starting on Sun03/05/23 at 2134, Until Discontinu ed, Routine, Pain (scale 7-10), Alternate with Ibuprofen [facility] diphenhydrA MINE (BENADRYL) injection 25 mg 03-06 02:34: 20 Yes 25mg 25 mg, Slow IV Push, Q6HPRN, Starting on Sun03/05/23 at 2134, Until Discontinu ed, Routine, Itching [facility] diphenhydrA MINE (BENADRYL) tablet 25 mg 03-06 02:34: 20 Yes 25mg 25 mg, Oral, Q6HPRN, Starting on Sun03/05/23 at 2133, Until Discontinu ed, Routine, Sleep, Itching [facility] ondansetron (ZOFRAN (PF)) injection 4 mg 03-06 02:34: 20 Yes 4mg 4 mg, Slow IV Push, Q8HPRN, Starting on Sun03/05/23 at 2133, Until Discontinu ed, Routine, Nausea and Vomiting (N/V) [facility] bisacodyL (DULCOLAX) suppository 10 mg 03-06 02:34: 20 Yes 10mg 10 mg, Rectal, QDAILYPRN, Starting on Sun03/05/23 at 2133, Until Discontinu ed, Routine, Constipati on [facility] simethicone (GAS RELIEF (SIMETHICON E)) chewable tablet 160 mg 03-06 02:34: 20 Yes 160mg 160 mg, Oral, PC+HSPRN, Starting on Sun03/05/23 at 2133, Until Discontinu ed, Routine, Gas [facility] docusate (COLACE) capsule 200 mg 03-06 02:34: 20 Yes 200mg 200 mg, Oral, QDAILYPRN, Starting on Sun03/05/23 at 2133, Until Discontinu ed, Routine, Constipati on [facility] magnesium hydroxide (MILK OF MAGNESIA) 400 mg/5 mL suspension 30 mL 03-06 02:34: 20 Yes 30mL 30 mL, Oral, QDAILYPRN, Starting on Sun03/05/23 at 2133, Until Discontinu ed, Routine, Constipati on [facility] lactated ringers IV infusion 1,000 mL 03-06 02:34: 20 03-06 07:08 :31 No 1000mL at 125 mL/hr, 1,000 mL, IV Infusion, PRN, 1 dose, Starting on Sun03/05/23 at 2134, Until Discontinu ed, Routine 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
Lock out Interval: 6 Minutes
Basal Rate: 1 mg/hr
F our Hour Dose Limit: 32 mg
Intr avenous, 30 mL, CONTINUOUS , Starting on Sun03/05/23 at 2030, Until Discontinu ed [facility] metoclopram vivian HCl (REGLAN) injection 10 mg 03-06 00:26: 55 Yes 10mg 10 mg, Slow IV Push, Q6HPRN, Starting on Sun03/05/23 at 1926, Until Discontinu ed, Routine, Nausea and Vomiting (N/V) [facility] diphenhydrA MINE (BENADRYL) injection 25 mg 03-06 00:26: 51 Yes 25mg 25 mg, Slow IV Push, Q4HPRN, Starting on Sun03/05/23 at 1926, Until Discontinu ed, Routine, Itching [facility] naloxone (NARCAN) injection 0.1 mg 03-06 00:26: 12 Yes .1mg 0.1 mg, Slow IV Push, SEE-INSTRU CTIONS, Starting on Sun03/05/23 at 1926, Until Discontinu ed, Routine [facility] morpHINE 2 mg/mL LOAD & RESCUE INJECTION SYRG 03-06 00:26: 12 Yes Slow IV Push, Routine [facility] mupirocin (BACTROBAN OINT) 2 % skin ointment 03-05 23:15: 00 Yes Intra-op [facility] sodium chloride 0.9 % irrigation solution 03-05 22:15: 00 Yes PRN, Starting on Sun03/05/23 at 1715, Until Discontinu ed, Intra-op [facility] lactated ringers IV infusion 1,000 mL 03-05 22:00: 00 03-06 02:34 :24 No 1000mL at 125 mL/hr, 1,000 mL, IV Infusion, CONTINUOUS , Starting on Sun03/05/23 at 1700, Until Sun03/05/23 at 2134, [facility] oxytocin (PITOCIN) 30 units in NS 500 mL IV infusion 03-05 21:56: 07 03-06 02:34 :24 No 600mL/h 600 mL/hr, IV Infusion, PRN, For post delivery uterine atony., Starting on Sun03/05/[address] at 600 mL/hr for 1 hr then 150 mL/hr for 1 hr.
[facility] oxytocin (PITOCIN) 30 units in NS 500 mL IV infusion 03-05 21:56: 07 03-06 02:34 :24 No 300mL/h 300 mL/hr, IV Infusion, SEE-INSTRU CTIONS, Starting on Sun03/05/[address] at 300 mL/hr for 1 hr then 150 mL/hr for 1 hr. For post delivery uterotonic .
[facility] ceFAZolin (ANCEF) 2,000 mg in NaCl 0.9% (NS) 100 mL MINI-BAG 03-05 21:00: 38 03-06 02:34 :24 No 2000mg 2,000 mg, IV Piggyback, O.R. HOLDING ONCE, Starting on Sun03/05/23 at 1600, Until Sun03/05/23 at 2133, Administer over 30 Minutes, 100 mL
Reas on for Anti-Infec tive: Surgical Prophylaxi s
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
Duration of therapy: within 24 hours of surgery [facility] [facility] oxytocin (PITOCIN) 30 units in NS 500 mL IV infusion 03-05 21:00: 00 03-06 02:34 :24 No 2mU/min at 2-40 mL/hr, IV Infusion, TITRATE, Starting on Sun03/05/23 at 1600, Until Sun03/05/23 at 2134, [facility] bupivacaine (preserv free) (SENSORCAIN E MPF) 0.25 % (2.5 mg/mL) injection 03-05 20:45: 00 03-05 22:59 :12 No Epidural, ONCE INTRA PROCEDURE, Starting on Sun03/05/23 at 1545, Until Sun03/05/23 at 1759, Routine, Intra-op [facility] FENTanyl PF (SUBLIMAZE (PF)) injection 03-05 20:45: 00 03-05 22:59 :12 No Epidural, ONCE INTRA PROCEDURE, Starting on Sun03/05/23 at 1545, Until Sun03/05/23 at 1759, Routine, Intra-op [facility] PIB fentaNYL-ro pivacaine 2 mcg/mL-0.1 % (PF) in NS 200 mL epidural infusion RTU 03-05 19:25: 00 03-05 22:59 :12 No Epidural, ONCE INTRA PROCEDURE, Starting on Sun03/05/23 at 1425, Until Sun03/05/23 at 1759, Routine, Intra-op [facility] lidocaine-e pinephrine (XYLOCAINE W/EPINEPHRI NE) 1.5 %-1:200,000 injection 03-05 19:24: 00 03-05 22:59 :12 No Intraderma l, ONCE INTRA PROCEDURE, Starting on Sun03/05/23 at 1424, Until Sun03/05/23 at 1759, Routine, Intra-op [facility] lidocaine 1% (XYLOCAINE) 100 mg/10 mL (1 %) injection 03-05 19:20: 00 03-05 22:59 :12 No Infiltrati on, ONCE INTRA PROCEDURE, Starting on Sun03/05/23 at 1420, Until Sun03/05/23 at 1759, Routine, Intra-op [facility] 25/iron fum/folic/d ashley (-1 ORAL) 03-05 16:59: 22 Yes Take by mouth. [facility] terbutaline (BRETHINE) injection 0.25 mg 03-05 14:05: 40 03-06 02:34 :24 No .25mg 0.25 mg, Subcutaneo us, PRN, Starting on Sun03/05/23 at 0905, Until Sun03/05/23 at 2134, Routine, bradycardi a > 3 min or Cat III strip [facility] FENTanyl PF (SUBLIMAZE (PF)) injection 100 mcg 03-05 14:05: 02 03-06 02:34 :24 No 100ug 100 mcg, Slow IV Push, Q1HPRN, Starting on Sun03/05/23 at 0905, Until Sun03/05/23 at 2133, Routine, contractio n pain without an epidural and SVE < 8 cm and Cat I strip [facility] proMETHazin e (PHENERGAN) 25 mg in NaCl 0.9% (NS) 50 mL IV piggyback 03-05 12:00: 00 03-05 11:16 :00 No 25mg 25 mg, IV Piggyback, ONCE NOW, 1 dose, On Sun03/05/23 at 0700, Routine [facility] FENTanyl PF (SUBLIMAZE (PF)) injection 100 mcg 03-05 10:42: 00 03-05 10:42 :00 No 100ug 100 mcg, Slow IV Push, ONCE, 1 dose, On Sun03/05/23 at 0600, Routine [facility] dinoproston e (CERVIDIL) vaginal insert 10 mg 03-05 07:00: 00 03-05 06:54 :00 No 10mg 10 mg, Vaginal, ONCE, 1 dose, On Sun03/05/23 at 0200, Routine
Restricte d use approved by: ADC Provider [facility] [id number] IV infusion 1,000 mL 03-05 06:07: 02 03-06 02:34 :24 No 1000mL at 1-125 mL/hr, IV Infusion, TITRATE, Starting on Sun03/05/23 at 0107, Until Sun03/05/23 at 213, Routine [facility] sodium citrate-cit toñito acid (BICITRA) 500-334 mg/5 mL solution 30 mL 03-05 06:07: 02 03-05 21:22 :00 No 30mL 30 mL, Oral, PRE-PROCED URE ONCE, 1 dose, Starting on Sun03/05/23 at 0107, Until Discontinu ed, Routine, Surgery/Pr ocedure [facility] 25/iron fum/folic/d ashley (-1 ORAL) 4-29 01:59: 59 Yes Take by mouth. [facility] 25/iron fum/folic/d ashley (-1 ORAL) 2021-10 0-04 14:41: 57 Yes Take by mouth. [facility] Immunizations Ordered Immunization Name Filled Immunization Name Date Status Comments Source RSV, Bivalent Protein Subunit RSVprdF 2024-07-15 00:00:00 Completed [facility] RSV, Bivalent Protein Subunit RSVprdF 2024-07-15 00:00:00 Completed [facility] Flu Injectable MDCK Pres-Free (FLUCELVAX) 2024-07-01 00:00:00 Completed [facility] Flu Injectable MDCK Pres-Free (FLUCELVAX) 2024-07-01 00:00:00 Completed [facility] TDAP 2024-06-17 00:00:00 Completed [facility] TDAP 2024-06-17 00:00:00 Completed [facility] Influenza Virus Vaccine Quad IM, Preserv and ABX Free 6 MO-64 YRS (FLUCELVAX) 2024-01-22 00:00:00 Completed [facility] Influenza Virus Vaccine Quad IM, Preserv and ABX Free 6 MO-64 YRS (FLUCELVAX) 2024-01-22 00:00:00 Completed [facility] TDAP 2022-12-13 00:00:00 Completed [facility] TDAP 2022-12-13 00:00:00 Completed [facility] TDAP 2022-12-13 00:00:00 Completed [facility] TDAP 2022-12-13 00:00:00 Completed [facility] TDAP 2022-12-13 00:00:00 Completed [facility] TDAP 2022-12-13 00:00:00 Completed [facility] TDAP 2022-12-13 00:00:00 Completed [facility] TDAP 2022-12-13 00:00:00 Completed [facility] TDAP 2022-12-13 00:00:00 Completed [facility] TDAP 2022-12-13 00:00:00 Completed [facility] TDAP 2022-12-13 00:00:00 Completed [facility] TDAP 2022-12-13 00:00:00 Completed [facility] TDAP 2022-12-13 00:00:00 Completed [facility] TDAP 2022-12-13 00:00:00 Completed [facility] TDAP 2022-12-13 00:00:00 Completed [facility] TDAP 2022-12-13 00:00:00 Completed [facility] TDAP 2022-12-13 00:00:00 Completed [facility] TDAP 2022-12-13 00:00:00 Completed [facility] TDAP 2022-12-13 00:00:00 Completed [facility] TDAP 2022-12-13 00:00:00 Completed [facility] TDAP 2022-12-13 00:00:00 Completed [facility] TDAP 2022-12-13 00:00:00 Completed [facility] TDAP 2022-12-13 00:00:00 Completed [facility] TDAP 2022-12-13 00:00:00 Completed [facility] TDAP 2022-12-13 00:00:00 Completed [facility] TDAP 2022-12-13 00:00:00 Completed [facility] TDAP 2022-12-13 00:00:00 Completed [facility] TDAP 2022-12-13 00:00:00 Completed [facility] SARS-COV-2 COVID-19 VACCINE - (MODERNA) 2021-01-26 00:00:00 Completed SARS-COV-2 COVID-19 VACCINE - (MODERNA) 2020-12-29 00:00:00 Completed TDAP Unknown Completed [facility] Influenza Virus Vaccine Quad IM, Preserv and ABX Free 6 MO-64 YRS (FLUCELVAX) Unknown Completed [facility] TDAP Unknown Completed [facility] Influenza Virus Vaccine Quad IM, Preserv and ABX Free 6 MO-64 YRS (FLUCELVAX) Unknown Completed [facility] TDAP Unknown Completed [facility] Influenza Virus Vaccine Quad IM, Preserv and ABX Free 6 MO-64 YRS (FLUCELVAX) Unknown Completed [facility] TDAP Unknown Completed [facility] Influenza Virus Vaccine Quad IM, Preserv and ABX Free 6 MO-64 YRS (FLUCELVAX) Unknown Completed [facility] TDAP Unknown Completed [facility] Influenza Virus Vaccine Quad IM, Preserv and ABX Free 6 MO-64 YRS (FLUCELVAX) Unknown Completed [facility] TDAP Unknown Completed [facility] Influenza Virus Vaccine Quad IM, Preserv and ABX Free 6 MO-64 YRS (FLUCELVAX) Unknown Completed [facility] TDAP Unknown Completed [facility] Influenza Virus Vaccine Quad IM, Preserv and ABX Free 6 MO-64 YRS (FLUCELVAX) Unknown Completed [facility] TDAP Unknown Completed [facility] Influenza Virus Vaccine Quad IM, Preserv and ABX Free 6 MO-64 YRS (FLUCELVAX) Unknown Completed [facility] TDAP Unknown Completed [facility] Influenza Virus Vaccine Quad IM, Preserv and ABX Free 6 MO-64 YRS (FLUCELVAX) Unknown Completed [facility] TDAP Unknown Completed [facility] Influenza Virus Vaccine Quad IM, Preserv and ABX Free 6 MO-64 YRS (FLUCELVAX) Unknown Completed [facility] TDAP Unknown Completed [facility] Influenza Virus Vaccine Quad IM, Preserv and ABX Free 6 MO-64 YRS (FLUCELVAX) Unknown Completed [facility] TDAP Unknown Completed [facility] Influenza Virus Vaccine Quad IM, Preserv and ABX Free 6 MO-64 YRS (FLUCELVAX) Unknown Completed [facility] TDAP Unknown Completed [facility] Influenza Virus Vaccine Quad IM, Preserv and ABX Free 6 MO-64 YRS (FLUCELVAX) Unknown Completed [facility] TDAP Unknown Completed [facility] Influenza Virus Vaccine Quad IM, Preserv and ABX Free 6 MO-64 YRS (FLUCELVAX) Unknown Completed [facility] Flu Injectable MDCK Pres-Free (FLUCELVAX) Unknown Completed [facility] TDAP Unknown Completed [facility] Influenza Virus Vaccine Quad IM, Preserv and ABX Free 6 MO-64 YRS (FLUCELVAX) Unknown Completed [facility] TDAP Unknown Completed [facility] Influenza Virus Vaccine Quad IM, Preserv and ABX Free 6 MO-64 YRS (FLUCELVAX) Unknown Completed [facility] Flu Injectable MDCK Pres-Free (FLUCELVAX) Unknown Completed [facility] RSV, Bivalent Protein Subunit RSVprdF Unknown Completed [facility] TDAP Unknown Completed [facility] TDAP Unknown Completed [facility] TDAP Unknown Completed [facility] TDAP Unknown Completed [facility] TDAP Unknown Completed [facility] TDAP Unknown Completed [facility] Influenza Virus Vaccine Quad IM, Preserv and ABX Free 6 MO-64 YRS (FLUCELVAX) Unknown Completed [facility] TDAP Unknown Completed [facility] Influenza Virus Vaccine Quad IM, Preserv and ABX Free 6 MO-64 YRS (FLUCELVAX) Unknown Completed [facility] TDAP Unknown Completed [facility] Influenza Virus Vaccine Quad IM, Preserv and ABX Free 6 MO-64 YRS (FLUCELVAX) Unknown Completed [facility] TDAP Unknown Completed [facility] Influenza Virus Vaccine Quad IM, Preserv and ABX Free 6 MO-64 YRS (FLUCELVAX) Unknown Completed [facility] TDAP Unknown Completed [facility] Influenza Virus Vaccine Quad IM, Preserv and ABX Free 6 MO-64 YRS (FLUCELVAX) Unknown Completed [facility] TDAP Unknown Completed [facility] Influenza Virus Vaccine Quad IM, Preserv and ABX Free 6 MO-64 YRS (FLUCELVAX) Unknown Completed [facility] TDAP Unknown Completed [facility] Influenza Virus Vaccine Quad IM, Preserv and ABX Free 6 MO-64 YRS (FLUCELVAX) Unknown Completed [facility] Vital Signs Vital Name Observation Time Observation Value Comments S ource Systolic blood pressure 2024-10-01 21:39:00 111 mm[Hg] [facility] Diastolic blood pressure 2024-10-01 21:39:00 75 mm[Hg] [facility] o [facility] Heart rate 2024-10-01 21:39:00 75 /min [facility] Body temperature 2024-10-01 21:39:00 36.67 Anjali [facility] Respiratory rate 2024-10-01 21:39:00 18 /min [facility] Body height 2024-10-01 21:39:00 165.1 cm [facility] Body weight 2024-10-01 21:39:00 92.579 kg [facility] BMI 2024-10-01 21:39:00 33.96 kg/m2 [facility] Systolic blood pressure 2024-09-10 21:03:00 121 mm[Hg] [place] [facility] Diastolic blood pressure 2024-09-10 21:03:00 80 mm[Hg] [facility] Heart rate 2024-09-10 21:03:00 70 /min [facility] Body temperature 2024-09-10 21:03:00 36.56 Anjali [facility] Respiratory rate 2024-09-10 21:03:00 16 /min [facility] Body height 2024-09-10 21:03:00 165.1 cm [facility] Body weight 2024-09-10 21:03:00 92.534 kg [facility] BMI 2024-09-10 21:03:00 33.95 kg/m2 [facility] Systolic blood pressure 2024-09-03 21:23:00 118 mm[Hg] [place] [facility] Diastolic blood pressure 2024-09-03 21:23:00 79 mm[Hg] [facility] Heart rate 2024-09-03 21:23:00 68 /min [facility] Respiratory rate 2024-09-03 21:23:00 18 /min [facility] Body height 2024-09-03 21:23:00 165.1 cm [facility] Body weight 2024-09-03 21:23:00 97.796 kg [facility] BMI 2024-09-03 21:23:00 35.88 kg/m2 [facility] Systolic blood pressure 2024-09-02 04:30:00 131 mm[Hg] [facility] Diastolic blood pressure 2024-09-02 04:30:00 79 mm[Hg] [facility] Heart rate 2024-09-02 04:30:00 51 /min [facility] Respiratory rate 2024-09-02 04:30:00 16 /min [facility] Oxygen saturation in Arterial blood by Pulse oximetry 2024-09-02 04:30:00 98 /min [facility] Body temperature 2024-09-02 02:47:00 37 Anjali [facility] Body height 2024-09-02 02:47:00 165.1 cm [facility] Body weight 2024-09-02 02:47:00 99.791 kg [facility] BMI 2024-09-02 02:47:00 36.61 kg/m2 [facility] Systolic blood pressure 2024-08-29 14:21:00 115 mm[Hg] [facility] Diastolic blood pressure 2024-08-29 14:21:00 67 mm[Hg] [facility] Heart rate 2024-08-29 14:21:00 72 /min [facility] Respiratory rate 2024-08-29 14:21:00 16 /min [facility] Oxygen saturation in Arterial blood by Pulse oximetry 2024-08-29 14:21:00 99 /min [facility] Body temperature 2024-08-29 09:40:00 36.5 Anjali [facility] Body height 2024-08-28 12:15:00 167.6 cm [facility] Body weight 2024-08-28 12:15:00 100.699 kg [facility] BMI 2024-08-28 12:15:00 35.83 kg/m2 [facility] Systolic blood pressure 2024-08-28 16:45:00 108 mm[Hg] [facility] Diastolic blood pressure 2024-08-28 16:45:00 78 mm[Hg] [facility] Heart rate 2024-08-28 16:45:00 64 /min [facility] Oxygen saturation in Arterial blood by Pulse oximetry 2024-08-28 16:45:00 99 /min [facility] Body temperature 2024-08-28 15:15:00 36.56 Anjali [facility] Respiratory rate 2024-08-28 15:15:00 20 /min [facility] Body height 2024-08-28 12:15:00 167.6 cm [facility] Body weight 2024-08-28 12:15:00 100.699 kg [facility] BMI 2024-08-28 12:15:00 35.83 kg/m2 [facility] Respiratory rate 2024-08-28 15:00:00 24 /min [facility] Systolic blood pressure 2024-08-26 19:16:00 100 mm[Hg] [facility] Diastolic blood pressure 2024-08-26 19:16:00 66 mm[Hg] [facility] Heart rate 2024-08-26 19:16:00 78 /min [facility] Respiratory rate 2024-08-26 19:16:00 18 /min [facility] Body height 2024-08-26 19:16:00 167.6 cm [facility] Body weight 2024-08-26 19:16:00 102.014 kg [facility] BMI 2024-08-26 19:16:00 36.30 kg/m2 [facility] Systolic blood pressure 2024-08-19 20:16:00 109 mm[Hg] [facility] Diastolic blood pressure 2024-08-19 20:16:00 69 mm[Hg] [facility] Heart rate 2024-08-19 20:16:00 80 /min [facility] Respiratory rate 2024-08-19 20:16:00 18 /min [facility] Body height 2024-08-19 20:16:00 167.6 cm [facility] Body weight 2024-08-19 20:16:00 101.787 kg [facility] BMI 2024-08-19 20:16:00 36.22 kg/m2 [facility] Diastolic blood pressure 2024-08-12 16:31:00 82 mm[Hg] [facility] Heart rate 2024-08-12 16:31:00 83 /min [facility] 2024-08-12 16:31:00 18 /min [facility] Body height 2024-08-12 16:31:00 167.6 cm [facility] Body weight 2024-08-12 16:31:00 100.971 kg [facility] BMI 2024-08-12 16:31:00 35.93 kg/m2 [facility] Systolic blood pressure 2024-08-12 16:31:00 136 mm[Hg] [facility] Systolic blood pressure 2024-07-29 14:11:00 123 mm[Hg] [facility] Diastolic blood pressure 2024-07-29 14:11:00 76 mm[Hg] [facility] Heart rate 2024-07-29 14:11:00 79 /min [facility] Body temperature 2024-07-29 14:11:00 36.44 Anjali [facility] Respiratory rate 2024-07-29 14:11:00 18 /min [facility] Body height 2024-07-29 14:11:00 167.6 cm [facility] Body weight 2024-07-29 14:11:00 99.338 kg [facility] BMI 2024-07-29 14:11:00 35.35 kg/m2 [facility] Systolic blood pressure 2024-07-28 02:00:00 127 mm[Hg] [facility] Diastolic blood pressure 2024-07-28 02:00:00 72 mm[Hg] [facility] Heart rate 2024-07-28 02:00:00 116 [facility] Oxygen saturation in Arterial blood by Pulse oximetry 2024-07-28 02:00:00 99 /min [facility] Body temperature 2024-07-27 21:53:00 37.06 Anjali [facility] Respiratory rate 2024-07-27 21:53:00 16 /min [facility] Body height 2024-07-27 21:41:00 167.6 cm [facility] Body weight 2024-07-27 21:41:00 [facility]245 [facility] 2024-07-27 21:41:00 35.67 kg/m2 [facility] Systolic blood pressure 2024-07-15 21:01:00 104 mm[Hg] [facility] Diastolic blood pressure 2024-07-15 21:01:00 69 mm[Hg] [facility] Heart rate 2024-07-15 21:01:00 88 /min [facility] Respiratory rate 2024-07-15 21:01:00 16 /min [facility] Body height 2024-07-15 21:01:00 167.6 cm [facility] Body weight 2024-07-15 21:01:00 101.152 kg [facility] BMI 2024-07-15 21:01:00 35.99 kg/m2 [facility] Systolic blood pressure 2024-07-01 18:25:00 108 mm[Hg] [facility] Diastolic blood pressure 2024-07-01 18:25:00 73 mm[Hg] [facility] Heart rate 2024-07-01 18:25:00 90 /min [facility] Body temperature 2024-07-01 18:25:00 36.17 Anjali [facility] Respiratory rate 2024-07-01 18:25:00 18 /min [facility] Body height 2024-07-01 18:25:00 167.6 cm [facility] Body weight 2024-07-01 18:25:00 99.247 kg [facility] BMI 2024-07-01 18:25:00 35.32 kg/m2 [facility] Systolic blood pressure 2024-06-17 18:02:00 121 mm[Hg] [facility] Diastolic blood pressure 2024-06-17 18:02:00 74 mm[Hg] [facility] Heart rate 2024-06-17 18:02:00 79 /min [facility] Respiratory rate 2024-06-17 18:02:00 18 /min [facility] Body height 2024-06-17 18:02:00 167.6 cm [facility] Body weight 2024-06-17 18:02:00 98.431 kg [facility] BMI 2024-06-17 18:02:00 35.02 kg/m2 [facility] Systolic blood pressure 2024-06-03 18:27:00 123 mm[Hg] [facility] Diastolic blood pressure 2024-06-03 18:27:00 73 mm[Hg] [facility] Heart rate 2024-06-03 18:27:00 85 /min [facility] Body temperature 2024-06-03 18:27:00 36.33 Anjali [facility] Respiratory rate 2024-06-03 18:27:00 18 /min [facility] Body height 2024-06-03 18:27:00 167.6 cm [facility] Body weight 2024-06-03 18:27:00 99.791 kg [facility] BMI 2024-06-03 18:27:00 35.51 kg/m2 [facility] Heart rate 2024-05-27 23:31:00 82 /min [facility] Oxygen saturation in Arterial blood by Pulse oximetry 2024-05-27 23:31:00 99 /min [facility] Systolic blood pressure 2024-05-27 23:21:00 117 mm[Hg] [facility] Diastolic blood pressure 2024-05-27 23:21:00 63 mm[Hg] [facility] Body temperature 2024-05-27 23:00:00 37.39 Anjali [facility] Respiratory rate 2024-05-27 23:00:00 16 /min [facility] Body height 2024-05-27 23:00:00 167.6 cm [facility] Body weight 2024-05-27 23:00:00 100.789 kg [facility] BMI 2024-05-27 23:00:00 35.86 kg/m2 [facility] Systolic blood pressure 2024-05-17 17:31:00 110 mm[Hg] [facility] Diastolic blood pressure 2024-05-17 17:31:00 77 mm[Hg] [facility] Heart rate 2024-05-17 17:31:00 92 /min [facility] Body temperature 2024-05-17 17:31:00 36.17 Anjali [facility] Respiratory rate 2024-05-17 17:31:00 18 /min [facility] Body height 2024-05-17 17:31:00 167.6 cm [facility] Body weight 2024-05-17 17:31:00 98.975 kg [facility] BMI 2024-05-17 17:31:00 35.22 kg/m2 [facility] Oxygen saturation in Arterial blood by Pulse oximetry 2024-05-17 17:31:00 97 /min [facility] Systolic blood pressure 2024-05-06 16:02:00 114 mm[Hg] [facility] Diastolic blood pressure 2024-05-06 16:02:00 68 mm[Hg] [facility] Heart rate 2024-05-06 16:02:00 88 /min [facility] Respiratory rate 2024-05-06 16:02:00 16 /min [facility] Body height 2024-05-06 16:02:00 167.6 cm [facility] Body weight 2024-05-06 16:02:00 97.977 kg [facility] BMI 2024-05-06 16:02:00 34.86 kg/m2 [facility] Systolic blood pressure 2024-04-08 14:01:00 123 mm[Hg] [facility] Diastolic blood pressure 2024-04-08 14:01:00 64 mm[Hg] [facility] Heart rate 2024-04-08 14:01:00 85 /min [facility] Body temperature 2024-04-08 14:01:00 35 Anjali [facility] Body height 2024-04-08 14:01:00 167.6 cm [facility] Body weight 2024-04-08 14:01:00 96.163 kg [facility] 2024-04-08 14:01:00 34.22 kg/m2 [facility] Systolic blood pressure 2024-03-18 15:10:00 104 mm[Hg] [facility] o [facility] Diastolic blood pressure 2024-03-18 15:10:00 63 mm[Hg] [facility] Heart rate 2024-03-18 15:10:00 75 /min [facility] Body temperature 2024-03-18 15:10:00 36.61 Anjali [facility] Body height 2024-03-18 15:10:00 167.6 cm [facility] Body weight 2024-03-18 15:10:00 [facility]074 [facility] BMI 2024-03-18 15:10:00 33.83 kg/m2 [facility] Systolic blood pressure 2024-02-19 21:13:00 129 mm[Hg] [facility] o [facility] Diastolic blood pressure 2024-02-19 21:13:00 77 mm[Hg] [facility] Heart rate 2024-02-19 21:13:00 86 /min [facility] Body height 2024-02-19 21:13:00 167.6 cm [facility] Body weight 2024-02-19 21:13:00 95.437 kg [facility] BMI 2024-02-19 21:13:00 33.96 kg/m2 [facility] Systolic blood pressure 2024-02-11 15:23:00 116 mm[Hg] University o [facility] Diastolic blood pressure 2024-02-11 15:23:00 77 mm[Hg] University [facility] Heart rate 2024-02-11 15:23:00 78 /min [facility] Respiratory rate 2024-02-11 15:23:00 18 /min [facility] Body height 2024-02-11 15:23:00 167.6 cm [facility] Body weight 2024-02-11 15:23:00 96.163 kg [facility] BMI 2024-02-11 15:23:00 34.22 kg/m2 [facility] Systolic blood pressure 2024-01-22 17:48:00 115 mm[Hg] University o [facility] Diastolic blood pressure 2024-01-22 17:48:00 80 mm[Hg] [facility] Heart rate 2024-01-22 17:48:00 82 /min Unive [facility] Body temperature 2024-01-22 17:48:00 36.61 Anjali [facility] Body height 2024-01-22 17:48:00 167.6 cm [facility] Body weight 2024-01-22 17:48:00 95.618 kg Univ [facility] BMI 2024-01-22 17:48:00 34.02 kg/m2 Univ [facility] Systolic blood pressure 2024-01-11 19:00:00 134 mm[Hg] [facility] Diastolic blood pressure 2024-01-11 19:00:00 70 mm[Hg] [facility] Heart rate 2024-01-11 19:00:00 72 /min Unive [facility] Body temperature 2024-01-11 19:00:00 36.56 Anjali [facility] Respiratory rate 2024-01-11 19:00:00 18 /min [facility] Body height 2024-01-11 19:00:00 167.6 cm [facility] Body weight 2024-01-11 19:00:00 95.255 kg Univ [facility] BMI 2024-01-11 19:00:00 33.89 kg/m2 [facility] Systolic blood pressure 2023-04-26 18:40:00 126 mm[Hg] University o [facility] Diastolic blood pressure 2023-04-26 18:40:00 76 mm[Hg] [facility] Heart rate 2023-04-26 18:40:00 78 /min Unive [facility] Body temperature 2023-04-26 18:40:00 36.78 Anjali [facility] Respiratory rate 2023-04-26 18:40:00 18 /min [facility] Body height 2023-04-26 18:40:00 167.6 cm Univ [facility] Body weight 2023-04-26 18:40:00 91.989 kg Univ [facility] BMI 2023-04-26 18:40:00 32.73 kg/m2 Univ [facility] Systolic blood pressure 2023-04-03 16:17:00 113 mm[Hg] [facility] Diastolic blood pressure 2023-04-03 16:17:00 76 mm[Hg] [facility] Heart rate 2023-04-03 16:17:00 82 /min Unive [facility] Body temperature 2023-04-03 16:17:00 36.61 Anjali [facility] Respiratory rate 2023-04-03 16:17:00 18 /min [facility] Body height 2023-04-03 16:17:00 165.1 cm Univ [facility] Body weight 2023-04-03 16:17:00 93.35 kg [facility] BMI 2023-04-03 16:17:00 34.25 kg/m2 [facility] Oxygen saturation in Arterial blood by Pulse oximetry 2023-04-03 16:17:00 99 /min [facility] Systolic blood pressure 2023-03-13 18:11:00 120 mm[Hg] [facility] Diastolic blood pressure 2023-03-13 18:11:00 76 mm[Hg] [facility] Heart rate 2023-03-13 18:11:00 72 /min Unive [facility] Body temperature 2023-03-13 18:11:00 36.72 Anjali [facility] Respiratory rate 2023-03-13 18:11:00 18 /min [facility] Body height 2023-03-13 18:11:00 167.6 cm Univ [facility] Body weight 2023-03-13 18:11:00 92.987 kg [facility] BMI 2023-03-13 18:11:00 33.09 kg/m2 [facility] Systolic blood pressure 2023-03-09 15:08:00 129 mm[Hg] [facility] Diastolic blood pressure 2023-03-09 15:08:00 81 mm[Hg] [facility] Heart rate 2023-03-09 15:07:00 69 /min Unive [facility] Body temperature 2023-03-09 15:07:00 36.83 Anjali [facility] Respiratory rate 2023-03-09 15:07:00 16 /min [facility] Body height 2023-03-09 15:07:00 167.6 cm [facility] Body weight 2023-03-09 15:07:00 100.109 kg [facility] BMI 2023-03-09 15:07:00 35.62 kg/m2 [facility] Oxygen saturation in Arterial blood by Pulse oximetry 2023-03-09 15:07:00 96 /min [facility] Systolic blood pressure 2023-03-07 12:35:00 113 mm[Hg] [facility] Diastolic blood pressure 2023-03-07 12:35:00 55 mm[Hg] [facility] Heart rate 2023-03-07 12:35:00 90 /[facility] Body temperature 2023-03-07 12:35:00 36.94 Anjali [facility] Respiratory rate 2023-03-07 12:35:00 18 /min [facility] Oxygen saturation in Arterial blood by Pulse oximetry 2023-03-07 12:35:00 100 /min [facility] Body height 2023-03-05 03:54:00 167.6 cm [facility] Body weight 2023-03-05 03:54:00 101.606 kg [facility] BMI 2023-03-05 03:54:00 36.15 kg/m2 [facility] Systolic blood pressure 2023-03-05 21:00:00 138 mm[Hg] [facility] Diastolic blood pressure 2023-03-05 21:00:00 72 mm[Hg] [facility] Heart rate 2023-03-05 21:00:00 111 /min Unive [facility] Oxygen saturation in Arterial blood by Pulse oximetry 2023-03-05 21:00:00 99 /min [facility] Body temperature 2023-03-05 17:19:00 36.78 Anjali [facility] Respiratory rate 2023-03-05 15:00:00 18 /min [facility] Body height 2023-03-05 03:54:00 167.6 cm [facility] Body weight 2023-03-05 03:54:00 101.606 kg [facility] BMI 2023-03-05 03:54:00 36.15 kg/m2 Univ [facility] Systolic blood pressure 2023-02-28 20:16:00 135 mm[Hg] [facility] Diastolic blood pressure 2023-02-28 20:16:00 81 mm[Hg] [facility] Heart rate 2023-02-28 20:16:00 76 /min Unive [facility] Respiratory rate 2023-02-28 20:16:00 18 /min [facility] Body height 2023-02-28 20:16:00 167.6 cm Univ [facility] Body weight 2023-02-28 20:16:00 101.152 kg [facility] BMI 2023-02-28 20:16:00 35.99 kg/m2 Univ [facility] Systolic blood pressure 2023-02-20 16:09:00 115 mm[Hg] [facility] Diastolic blood pressure 2023-02-20 16:09:00 64 mm[Hg] [facility] Heart rate 2023-02-20 16:09:00 80 /min Unive [facility] Body temperature 2023-02-20 16:09:00 36.61 Anjali [facility] Respiratory rate 2023-02-20 16:09:00 18 /min [facility] Body height 2023-02-20 16:09:00 167.6 cm [facility] Body weight 2023-02-20 16:09:00 98.884 kg Univ [facility] BMI 2023-02-20 16:09:00 35.19 kg/m2 Univ [facility] Heart rate 2023-02-17 06:45:00 90 /min Unive [facility] Oxygen saturation in Arterial blood by Pulse oximetry 2023-02-17 06:45:00 99 /min [facility] Systolic blood pressure 2023-02-17 06:30:00 126 mm[Hg] [facility] Diastolic blood pressure 2023-02-17 06:30:00 76 mm[Hg] [facility] Body temperature 2023-02-17 05:55:00 37.17 Anjali [facility] Respiratory rate 2023-02-17 05:55:00 18 /min [facility] Body height 2023-02-17 05:37:00 167.6 cm Univ [facility] Body weight 2023-02-17 05:37:00 98.884 kg Univ [facility] BMI 2023-02-17 05:37:00 35.19 kg/m2 Univ [facility] Systolic blood pressure 2023-02-13 18:17:00 117 mm[Hg] [facility] Diastolic blood pressure 2023-02-13 18:17:00 76 mm[Hg] [facility] Heart rate 2023-02-13 18:17:00 70 /min [facility] Body temperature 2023-02-13 18:17:00 36.72 Anjali [facility] Respiratory rate 2023-02-13 18:17:00 18 /min [facility] Body height 2023-02-13 18:17:00 167.6 cm Univ [facility] Body weight 2023-02-13 18:17:00 97.523 kg Univ [facility] BMI 2023-02-13 18:17:00 34.70 kg/m2 Univ [facility] Systolic blood pressure 2023-02-06 21:42:00 118 mm[Hg] [facility] Diastolic blood pressure 2023-02-06 21:42:00 73 mm[Hg] [facility] Heart rate 2023-02-06 21:42:00 79 /min Unive [facility] Body temperature 2023-02-06 21:42:00 36.89 Anjali [facility] Respiratory rate 2023-02-06 21:42:00 18 /min [facility] Body height 2023-02-06 21:42:00 167.6 cm Univ [facility] Body weight 2023-02-06 21:42:00 96.163 kg [facility] BMI 2023-02-06 21:42:00 34.22 kg/m2 Univ [facility] Systolic blood pressure 2023-01-24 20:58:00 118 mm[Hg] [facility] Diastolic blood pressure 2023-01-24 20:58:00 74 mm[Hg] [facility] Heart rate 2023-01-24 20:58:00 81 /min Unive [facility] Body temperature 2023-01-24 20:58:00 36.78 Anjali [facility] Respiratory rate 2023-01-24 20:58:00 17 /min [facility] Body height 2023-01-24 20:58:00 167.6 cm Univ [facility] Body weight 2023-01-24 20:58:00 94.666 kg [facility] BMI 2023-01-24 20:58:00 33.69 kg/m2 Univ [facility] Systolic blood pressure 2023-01-10 20:41:00 124 mm[Hg] [facility] Diastolic blood pressure 2023-01-10 20:41:00 79 mm[Hg] [facility] Heart rate 2023-01-10 20:41:00 86 /min Unive [facility] Body temperature 2023-01-10 20:41:00 36.72 Anjali [facility] Respiratory rate 2023-01-10 20:41:00 16 /min [facility] Body height 2023-01-10 20:41:00 167.6 cm [facility] Body weight 2023-01-10 20:41:00 93.441 kg [facility] BMI 2023-01-10 20:41:00 33.25 kg/m2 [facility] Systolic blood pressure 2022-12-27 19:13:00 116 mm[Hg] [place] o [facility] Diastolic blood pressure 2022-12-27 19:13:00 76 mm[Hg] [facility] Heart rate 2022-12-27 19:13:00 95 /min [facility] Respiratory rate 2022-12-27 19:13:00 18 /min [facility] Body height 2022-12-27 19:13:00 167.6 cm [facility] Body weight 2022-12-27 19:13:00 92.08 kg [facility] BMI 2022-12-27 19:13:00 32.77 kg/m2 [facility] Systolic blood pressure 2022-12-13 19:15:00 127 mm[Hg] [facility] Diastolic blood pressure 2022-12-13 19:15:00 86 mm[Hg] [facility] Heart rate 2022-12-13 19:15:00 95 /min [facility] Respiratory rate 2022-12-13 19:15:00 18 /min [facility] Body height 2022-12-13 19:15:00 165.1 cm [facility] Body weight 2022-12-13 19:15:00 92.08 kg [facility] BMI 2022-12-13 19:15:00 33.78 kg/m2 [facility] 2022-11-15 16:52:00 109 mm[Hg] [facility] Diastolic blood pressure 2022-11-15 16:52:00 73 mm[Hg] [facility] Heart rate 2022-11-15 16:52:00 96 /min [facility] Body temperature 2022-11-15 16:52:00 36.83 Anjali [facility] Respiratory rate 2022-11-15 16:52:00 16 /min [facility] Body height 2022-11-15 16:52:00 167.6 cm Univ [facility] Body weight 2022-11-15 16:52:00 90.266 kg [facility] BMI 2022-11-15 16:52:00 32.12 kg/m2 Univ [facility] Systolic blood pressure 2022-10-18 17:16:00 114 mm[Hg] [facility] Diastolic blood pressure 2022-10-18 17:16:00 72 mm[Hg] [facility] Heart rate 2022-10-18 17:16:00 74 /min [facility] Body height 2022-10-18 17:16:00 165.1 cm [facility] Body weight 2022-10-18 17:16:00 88.905 kg [facility] BMI 2022-10-18 17:16:00 32.62 kg/m2 [facility] Oxygen saturation in Arterial blood by Pulse oximetry 2022-10-18 17:16:00 98 /min [facility] Systolic blood pressure 2022-09-28 20:53:00 114 mm[Hg] [facility] Diastolic blood pressure 2022-09-28 20:53:00 76 mm[Hg] [facility] Heart rate 2022-09-28 20:53:00 77 /min [facility] Body temperature 2022-09-28 20:53:00 36.78 Anjali [facility] Respiratory rate 2022-09-28 20:53:00 18 /min [facility] Body height 2022-09-28 20:53:00 165.1 cm Univ [facility] Body weight 2022-09-28 20:53:00 85.276 kg [facility] BMI 2022-09-28 20:53:00 31.28 kg/m2 Univ [facility] Systolic blood pressure 2022-09-20 20:12:00 118 mm[Hg] [facility] Diastolic blood pressure 2022-09-20 20:12:00 79 mm[Hg] [facility] Heart rate 2022-09-20 20:12:00 73 /min Unive [facility] Body temperature 2022-09-20 20:12:00 36.94 Anjali [facility] Respiratory rate 2022-09-20 20:12:00 16 /min [facility] Body height 2022-09-20 20:12:00 165.1 cm Univ [facility] Body weight 2022-09-20 20:12:00 90.13 kg Univ [facility] BMI 2022-09-20 20:12:00 33.07 kg/m2 Univ [facility] Oxygen saturation in Arterial blood by Pulse oximetry 2022-09-20 20:12:00 97 /min [facility] Systolic blood pressure 2022-08-22 17:49:00 125 mm[Hg] [facility] Diastolic blood pressure 2022-08-22 17:49:00 76 mm[Hg] [facility] Heart rate 2022-08-22 17:49:00 93 /min Unive [facility] Body temperature 2022-08-22 17:49:00 36.78 Anjali [facility] Respiratory rate 2022-08-22 17:49:00 16 /min [facility] Body height 2022-08-22 17:49:00 165.1 cm Univ [facility] Body weight 2022-08-22 17:49:00 85.548 kg [facility] BMI 2022-08-22 17:49:00 31.38 kg/m2 Univ [facility] Oxygen saturation in Arterial blood by Pulse oximetry 2022-08-22 17:49:00 98 /min [facility] Systolic blood pressure 2022-07-31 15:47:00 104 mm[Hg] [facility] Diastolic blood pressure 2022-07-31 15:47:00 70 mm[Hg] [facility] Heart rate 2022-07-31 15:47:00 71 /min Unive [facility] Body temperature 2022-07-31 15:47:00 36.61 Anjali [facility] Respiratory rate 2022-07-31 15:47:00 18 /min [facility] Body height 2022-07-31 15:47:00 165.1 cm [facility] Body weight 2022-07-31 15:47:00 85.004 kg [facility] BMI 2022-07-31 15:47:00 31.18 kg/m2 [facility] Systolic blood pressure 2022-07-25 19:40:00 116 mm[Hg] [place] o [facility] Diastolic blood pressure 2022-07-25 19:40:00 73 mm[Hg] [facility] Heart rate 2022-07-25 19:40:00 62 /min [facility] Body temperature 2022-07-25 19:40:00 36.83 Anjali [facility] Respiratory rate 2022-07-25 19:40:00 18 /min [facility] Body height 2022-07-25 19:40:00 165.1 cm [facility] Body weight 2022-07-25 19:40:00 84.369 kg [facility] BMI 2022-07-25 19:40:00 30.95 kg/m2 [facility] Procedures Procedure Date / Time Performed Performing Clinician Source POCT TEST 2024-10-01 00:00:00 Adum, Roselyn Bolaños [facility] BASIC METABOLIC PANEL (NA, K, CL, CO2, GLUCOSE, BUN, CREATININE, CA) 2024-09-02 03:07:00 Judie Mayer [facility] CBC WITH DIFF 2024-09-02 03:07:00 [facility]FF 2024-08-29 09:07:00 Adum, Roselyn Eubanks [facility] CBC WITH DIFF 2024-08-29 09:07:00 Adum, Roselyn Eubanks [facility] CENTRAL NEURAXIAL BLOCK 2024-08-28 13:43:00 Savanna Mejia [facility] SECTION 2024-08-28 13:22:00 [facility]um[facility] 2024-08-28 13:22:00 Adum, [facility] WITH DIFF 2024-08-27 18:04:00 Adum[facility] POCT URINALYSIS W/O SPECIFIC GRAVITY 2024-08-26 00:00:00 Adum, Roselyn Bolaños [facility] POCT URINALYSIS W/O SPECIFIC GRAVITY 2024-08-19 00:00:00 Adum, Roselyn Bolaños [facility] DME/SUPPLY JUSTIFICATION 2024-08-15 16:17:52 Doc tor Unassigned, [place] [facility] DSU PRE-OP 2024-08-12 21:03:49 Doctor Unass igned, [place] [facility] POCT URINALYSIS W/O SPECIFIC GRAVITY 2024-08-12 00:00:00 Adum, Roselyn Bolaños [facility] POCT URINALYSIS W/O SPECIFIC GRAVITY 2024-07-29 00:00:00 Adum, Roselyn Bolaños [facility] RSV, BIVALENT, PROTEIN SUBUNIT RSVPREF, DILUENT RECONSTITUTED, 0.5 ML, PF, (ABRYSVO) 2024-07-15 21:24:20 Adum, Roselyn Bolaños [facility] POCT URINALYSIS W/O SPECIFIC GRAVITY 2024-07-15 00:00:00 Adum, Roselyn Bolaños [facility] FLU VACC (), 6 MO-64 YRS, .5ML, IM, TIV (FLUCELVAX) 2024-07-01 18:29:41 Adum, oRselyn Bolaños [facility] POCT URINALYSIS W/O SPECIFIC GRAVITY 2024-07-01 00:00:00 Adum, Roselyn Bolaños [facility] SECOND AND THIRD TRIMESTER ULTRASOUND 2024-06-30 14:36:00 Morro Christensen [facility] TDAP VACCINE, >11 YRS, IM 2024-06-17 19:13:43 Adum, Roselyn Bolaños [facility] POCT URINALYSIS W/O SPECIFIC GRAVITY 2024-06-17 00:00:00 Adum, Roselyn Bolaños [facility] POCT URINALYSIS W/O SPECIFIC GRAVITY 2024-06-03 00:00:00 Adum, Roselyn Bolaños [facility] NON-STRESS TEST 2024-05-28 00:56:48 Austen Perez [facility] SECOND AND THIRD TRIMESTER ULTRASOUND 2024-05-23 13:52:00 Morro Christensen [facility] URINE CULTURE 2024-05-17 17:55:[address] [facility] POCT URINALYSIS 2024-05-17 17:40:00 Kathleen Mulligan [facility] POCT URINALYSIS W/O SPECIFIC GRAVITY 2024-05-06 00:00:00 Adum, Roselyn Bolaños [facility] SECOND AND THIRD TRIMESTER ULTRASOUND 2024-04-17 15:09:00 Morro Christensen [facility] POCT URINALYSIS W/O SPECIFIC GRAVITY 2024-04-08 00:00:00 Morro Christensen [facility] POCT URINALYSIS W/O SPECIFIC GRAVITY 2024-03-18 00:00:00 Morro Christensen [facility] SCANNED LAB RESULTS 2024-03-11 13:20:17 Doctor Krunal dennis, [facility] SCANNED LAB RESULTS 2024-03-10 16:38:49 Doctor Krunal dennis, [facility] <14 WEEKS US LIMITED 2024-02-19 22:03:46 Adum, Roselyn Bolaños [facility] POCT URINALYSIS W/O SPECIFIC GRAVITY 2024-02-19 00:00:00 Adum, Roselyn Bolaños [facility] POCT URINALYSIS W/O SPECIFIC GRAVITY 2024-02-11 00:00:00 Morro Christensen [facility] US OB TRANSVAGINAL 2024-01-22 18:17:46 Adum, Roselyn Bolaños [facility] FLU VACC ([id number]), 6 MO-64 YRS, .5ML, IM, QUAD (FLUCELVAX) 2024-01-22 17:59:00 Adum, Roselyn Bolaños [facility] POCT URINALYSIS W/O SPECIFIC GRAVITY 2024-01-22 00:00:00 Adum, Roselyn Bolaños [facility] POCT TEST 2024-01-11 00:00:00 Adum, Roselyn Bolaños [facility] POCT URINALYSIS W/O SPECIFIC GRAVITY 2024-01-11 00:00:00 Adum, Roselyn Bolaños [facility] PAP SMEAR-LIQUID BASED-CP 2023-04-26 20:59:00 Adum, Roselyn Bolaños [facility] POCT URINALYSIS W/O SPECIFIC GRAVITY 2023-04-26 18:46:00 Adum, Roselyn Bolaños [facility] CONSENT FOR CONTRACEPTION 2023-04-03 05:01:00 Doctor Unassigned, [facility] POCT TEST 2023-04-03 00:00:00 Adum, Roselyn Mami [facility] CBC WITH DIFF 2023-03-06 09:14:00 [facility] CBC WITH DIFF 2023-03-06 09:14:00 [facility] SECTION 2023-03-05 21:36:00 Albert [facility] SECTION 2023-03-05 21:36:00 Albert [facility] CENTRAL NEURAXIAL BLOCK 2023-03-05 19:35:00 Savanna Mejia [facility] CBC WITH DIFF 2023-03-05 06:33:00 Perez [facility] HEPATITIS B SURFACE ANTIGEN 2023-03-05 06:33:00 Albert [facility] HB ABO GROUPING 2023-03-05 06:33:00 Albert [facility] RHO (D) IMMUNE GLOBULIN 2023-03-05 06:33:00 Albert [facility] ADC OR DARCIE ONLY - RPR 2023-03-05 06:33:00 Albert [facility] HIV 1/2 AG-AB WITH REFLEX 2023-03-05 06:33:00 Albert [facility] CBC WITH DIFF 2023-03-05 06:33:00 Albert [facility] HEPATITIS B SURFACE ANTIGEN 2023-03-05 06:33:00 Austen Perez [facility] HB ABO GROUPING 2023-03-05 06:33:00 Austen Perez [facility] RHO (D) IMMUNE GLOBULIN 2023-03-05 06:33:00 PerezAusten [facility] ADC OR DARCIE ONLY - RPR 2023-03-05 06:33:00 Austen Perez [facility] HIV 1/2 AG-AB WITH REFLEX 2023-03-05 06:33:00 PerezAusten [facility] NOTICE OF PRIVACY PRACTICES 2023-03-05 03:38:20 Doctor Unassigned, [place] [facility] NOTICE OF PRIVACY PRACTICES 2023-03-05 03:38:20 Doctor Unassigned, [place] [facility] ASSIGNMENT OF BENEFITS 2023-03-05 03:37:15 Docto r Unassigned, [place] [facility] POCT URINALYSIS W/O SPECIFIC GRAVITY 2023-02-28 00:00:00 Adum, Roselyn Bolaños [facility] POCT URINALYSIS W/O SPECIFIC GRAVITY 2023-02-20 00:00:00 Adum, Roselyn Bolaños [facility] ASSIGNMENT OF BENEFITS 2023-02-17 05:34:12 Docto r Unassigned, [facility] [facility] CONSENT/REFUSAL FOR DIAGNOSIS AND TREATMENT 2023-02-17 05:32:58 Doctor Unassigned, [facility] [facility] >14 WEEKS US LIMITED 2023-02-13 19:07:24 Adum, Roselyn Bolaños [facility] DSU PRE-OP 2023-02-13 05:01:00 Doctor Unass igned, [place] [facility] POCT URINALYSIS W/O SPECIFIC GRAVITY 2023-02-13 00:00:00 Adum, Roselyn Bolaños [facility] POCT URINALYSIS W/O SPECIFIC GRAVITY 2023-02-06 21:41:00 Adum, Roselyn Bolaños [facility] POCT URINALYSIS W/O SPECIFIC GRAVITY 2023-01-24 00:00:00 Adum, Roselyn Bolaños [facility] POCT URINALYSIS W/O SPECIFIC GRAVITY 2023-01-10 00:00:00 Adum, Roselyn Bolaños [facility] POCT URINALYSIS W/O SPECIFIC GRAVITY 2022-12-27 00:00:00 Adum, Roselyn Bolaños [facility] TDAP VACCINE, >11 YRS, IM 2022-12-13 19:16[facility]49 [facility] W/O SPECIFIC GRAVITY 2022-12-13 00:00[facility]00 [facility] W/O SPECIFIC GRAVITY 2022-11-15 00:00:00 Adum, Roselyn Bolaños [facility] EXTERNAL PROVIDER RECORDS 2022-10-30 06:01:00 Doctor Unassigned, [place] [facility] EXTERNAL PROVIDER RECORDS 2022-10-20 06:01:00 Doctor Unassigned, [place] [facility] POCT URINALYSIS 2022-10-18 17:22:00 Adum, Roselyn Bolaños [facility] EXTERNAL PROVIDER RECORDS 2022-10-06 06:01:00 Doctor Unassigned, [place] [facility] POCT URINALYSIS W/O SPECIFIC GRAVITY 2022-09-28 21:42:00 Adum, Roselyn Bolaños [facility] POCT URINALYSIS W/O SPECIFIC GRAVITY 2022-09-20 00:00:00 Adum, Roselyn Bolaños [facility] SCANNED LAB RESULTS 2022-08-30 06:01:00 Doctor Krunal dennis, [place] [facility] DME/SUPPLY JUSTIFICATION 2022-08-22 05:01:00 Doc tor Unassigned, [place] [facility] POCT URINALYSIS W/O SPECIFIC GRAVITY 2022-08-22 00:00:00 Adum, Roselyn Bolaños [facility] AUTHORIZATION TO RELEASE PHI TO [facility] 2022-07-31 05:01:00 Doctor Unassigned, [place] [facility] POCT URINALYSIS W/O SPECIFIC GRAVITY 2022-07-31 00:00:00 Yecenia Song [facility] US OB TRANSVAGINAL 2022-07-25 22:46:09 Adum, Roselyn Bolaños [facility] POCT TEST 2022-07-25 19:44:00 Adum, Roselyn Bolaños [facility] POCT URINALYSIS W/O SPECIFIC GRAVITY 2022-07-25 19:43:00 Adum, Roselyn Bolaños [facility] PLANT PRODUCTION WORKER CLINIC ULTRASOUND 2022-07-25 05:01:00 Doc tor Unassigned, [place] [facility] Encounters Start Date/Time End Date/Time Encounter Type Admission Type Attending [facility] Facility Care Department Encounter ID Source 2023-02-17 02:00:02 Outpatient X [facility] [id number] [facility] 2022-05-15 13:36:01 Outpatient [facility] [id number] [facility] 2022-03-27 13:16:00 Outpatient [facility] [id number] [facility] 2021-11-16 11:48:14 Outpatient [facility] [id number] [facility] 2021-11-16 11:48:09 Outpatient Garima Florez [facility] [id number] [facility] 2021-11-16 11:42:04 Outpatient Garima Florez [facility] [id number] [facility] 2024-03-10 00:00:00 2024-12-06 07:45:18 Orders Only Doctor Unassigned, [place] Doctor Unassigned, [place] [facility] [place] [facility] 1.2.840.114 350.1.13.10 4.2.7.2.686 [id number] [facility] 2024-03-11 00:00:00 2024-12-06 07:44:36 Orders Only Doctor Unassigned, [place] Doctor Unassigned, [place] [facility] [place] [facility] 1.2.840.114 350.1.13.10 4.2.7.2.686 [id number] [facility] 2024-08-12 00:00:00 2024-12-06 06:45:55 Orders Only Doctor Unassigned, [place] Doctor Unassigned, [place] [facility] [place] [facility] 1.2.840.114 350.1.13.10 4.2.7.2.686 [id number] [facility] 2024-08-15 00:00:00 2024-12-06 06:44:52 Orders Only Doctor Unassigned, [place] Doctor Unassigned, [place] [facility] 1.2.840.114 350.1.13.10 4.2.7.2.686 [id number] [facility] 2024-10-01 15:30:00 2024-10-01 16:14:26 Outpatient R ROSELYN WISE [facility] [id number] [facility] 2024-10-01 15:30:00 2024-10-01 16:14:26 Routine Visit Roselyn Wise [facility] 1.2.840.114 350.1.13.10 4.2.7.2.686 [id number] 134 [id number] [facility] 2024-08-14 00:00:00 2024-09-20 18:26:27 Patient Secure Msg Roselyn Wise [facility] 1.2.840.114 350.1.13.10 4.2.7.2.686 [id number] 134 [id number] [facility] 2024-09-10 14:45:00 2024-09-10 15:12:34 Outpatient R ROSELYN WISE VIVIAN [facility] [id number] [facility] 2024-09-10 14:45:00 2024-09-10 15:12:34 Routine Visit Roselyn roche [facility] 1.2.840.114 350.1.13.10 4.2.7.2.686 [id number] 134 [id number] [facility] 2024-09-03 15:30:00 2024-09-03 15:33:27 Outpatient R ROSELYN WISE ROSELYN [facility] [id number] [facility] 2024-09-03 15:30:00 2024-09-03 15:33:27 Routine Visit Hernandezkaley Roselyn Mami [facility] 1.20.114 350.1.13.10 4.2.7.2.686 [id number] 134 [id number] [facility] 2024-09-03 15:30:00 2024-09-03 15:30:00 Outpatient R [facility] [id number] [facility] 2024-09-01 20:48:00 2024-09-01 23:11:00 Emergency X JUDIE MAYER PAMALA [facility] ERT [id number] [facility] 2024-09-01 20:48:00 2024-09-01 23:11:00 Emergency Judie Mayer [facility] 1.84.114 350.1.13.10 4.2.7.2.686 [id number] [facility] 2024-08-28 06:01:00 2024-08-29 12:45:00 Inpatient P ROSELYN WISE HERNANDEZKALEY [facility] Y[facility]IL[facility] [id number] [facility] 2024-08-28 06:01:00 2024-08-29 12:45:00 Hospital Encounter Frandy Roselyn Mami [facility] 1.2.114 350.1.13.10 4.2.7.2.686 [id number] [id number] [facility] 2024-08-28 08:00:00 2024-08-28 10:48:00 Surgery Frandy Roselyn Mami [facility] 1.20.114 350.1.13.10 4.2.7.2.686 [id number] [id number] [facility] 2024-08-28 07:40:00 2024-08-28 09:09:00 Anesthesia Event Purvi Alvarez Chelsea Altinger [facility] 1.2840.114 350.1.13.10 4.2.7.2.686 [id number] [id number] [facility] 2024-08-27 12:15:00 2024-08-27 12:30:00 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 134 [id number] [facility] 2024-08-20 10:15:00 2024-08-20 10:15:00 Outpatient R ROSELYN WISE [facility] [id number] [facility] 2024-08-19 11:15:00 2024-08-19 15:32:01 Outpatient R ROSELYN WISE [facility] [id number] [facility] 2024-08-19 11:15:00 2024-08-19 15:32:01 Routine Visit AdRoselyn roche [facility] 1.2840.114 350.1.13.10 4.2.7.2.686 [id number] 134 [id number] [facility] 2024-08-14 00:00:00 2024-08-14 12:23:53 Telephone AdRoselyn roche [facility] 1.2840.114 350.1.13.10 4.2.7.2.686 [id number] 134 [id number] [facility] 2024-08-13 10:15:00 2024-08-13 10:15:00 Outpatient R [facility] [id number] [facility] 2024-08-12 11:15:00 2024-08-12 11:48:39 Outpatient R ADUMROSELYN [facility] [id number] [facility] 2024-08-12 11:15:00 2024-08-12 11:48:39 Routine Visit HernandezRoselyn roche [facility] 1.284.114 350.1.13.10 4.2.7.2.686 [id number] 134 [id number] [facility] 2024-07-29 09:30:00 2024-07-29 10:02:59 Outpatient R ADUM, ROSELYN WISE [facility] [id number] [facility] 2024-07-29 09:30:00 2024-07-29 10:02:59 Routine Visit Roselyn Wise [facility] 1.284.114 350.1.13.10 4.2.7.2.686 [id number] 134 [id number] [facility] 2024-07-27 16:40:00 2024-07-27 21:11:00 Outpatient X ADUM, ROSELYN WISE [facility] Y[facility] [id number] [facility] 2024-07-27 16:40:00 2024-07-27 21:11:00 Emergency AdumRoselyn [facility] 1.2840.114 350.1.13.10 4.2.7.2.686 [id number] [facility] 2024-07-15 16:00:00 2024-07-15 16:40:56 Outpatient R ADUM, ROSELYN WISE, [facility] [id number] [facility] 2024-07-15 16:00:00 2024-07-15 16:40:56 Routine Visit Ad, Roselyn [facility] 1.284.114 350.1.13.10 4.2.7.2.686 [id number] 134 [id number] [facility] 2024-07-01 13:15:00 2024-07-01 13:56:39 Outpatient R ADUM, ROSELYN WISE, [facility] [id number] [facility] 2024-07-01 13:15:00 2024-07-01 13:56:39 Routine Visit Adum, Roselyn Bolaños [facility] 1.2.840.114 350.1.13.10 4.2.7.2.686 [id number] [facility] 2024-06-30 09:00:00 2024-06-30 10:31:58 Outpatient ROSCOE CALERO COREY [facility] [id number] [facility] 2024-06-30 09:00:00 2024-06-30 10:31:58 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, Roscoe Aguilar [facility] PLANT PRODUCTION WORKER [facility] 1.2840.114 350.1.13.10 4.2.7.2.686 [id number] [facility] 2024-06-17 13:00:00 2024-06-17 13:26:39 Outpatient R ADUMROSELYN VIVIAN [facility] [id number] [facility] 2024-06-17 13:00:00 2024-06-17 13:26:39 Routine Visit Roselyn Wise [facility] 1.2.840.114 350.1.13.10 4.2.7.2.686 [id number] 134 [id number] [facility] 2024-06-13 12:30:00 2024-06-13 12:45:00 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, 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 Unknown, Attending AdRoselyn roche Pob, 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 [facility] 1.2.840.114 350.1.13.10 4.2.7.2.686 [id number] [facility] 2024-06-13 12:30:00 2024-06-13 12:30:00 Outpatient R ADUM, ROSELYN LAWRENCE [facility] [id number] [facility] 2024-06-12 00:00:00 2024-06-12 15:08:51 Patient Secure Msg Roselyn Wise [facility] 1.2.840.114 350.1.13.10 4.2.7.2.686 [id number] 134 [id number] [facility] 2024-06-03 13:15:00 2024-06-03 13:57:13 Outpatient R ADUM, ROSELYN WISE ROSELYN [facility] [id number] [facility] 2024-06-03 13:15:00 2024-06-03 13:57:13 Routine Visit Roselyn Wise [facility] 1.2.840.114 350.1.13.10 4.2.7.2.686 [id number] 134 [id number] [facility] 2024-05-27 18:03:00 2024-05-27 20:00:00 Outpatient X AUSTEN PEREZ AUSTEN [facility] YAMILA [id number] [facility] 2024-05-27 18:03:00 2024-05-27 20:00:00 Emergency Austen Perez [facility] 1.2.840.114 350.1.13.10 4.2.7.2.686 [id number] [id number] [facility] 2024-05-27 00:00:00 2024-05-27 13:27:44 Patient Secure Msg AdRoselyn roche [facility] 1.2.840.114 350.1.13.10 4.2.7.2.686 [id number] 134 [id number] [facility] 2024-05-23 08:15:00 2024-05-23 08:49:20 Outpatient R MED CONROY CHASEY [facility] [id number] [facility] 2024-05-23 08:15:00 2024-05-23 08:49:20 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, Med Petersen [facility] PLANT PRODUCTION WORKER [facility] 1.2.840.114 350.1.13.10 4.2.7.2.686 [id number] [facility] 2024-05-19 00:00:00 2024-05-21 10:05:55 Telephone AdRoselyn roche [facility] 1.2.840.114 350.1.13.10 4.2.7.2.686 [id number] 134 [id number] [facility] 2024-05-17 12:20:00 2024-05-17 14:06:09 Outpatient R CAROLINE FERNÁNDEZ [facility] [id number] [facility] 2024-05-17 12:20:00 2024-05-17 14:06:09 Urgent Care Caroline Fernández Unknown, Attending [facility] 1..840.114 350.1.13.10 4.2.7.2.686 [id number] [facility] 2024-05-06 11:00:00 2024-05-06 11:10:14 Outpatient R ADROSELYN ROCHE [facility] [id number] [facility] 2024-05-06 11:00:00 2024-05-06 11:10:14 Routine Visit Ad, [facility] 1..840.114 350.1.13.10 4.2.7.2.686 [id number] [facility] 2024-04-29 13:30:00 2024-04-29 13:30:00 Outpatient R FRANDY [facility] [id number] [facility] 2024-04-17 09:30:00 2024-04-17 10:06:30 Outpatient P LISANDRO MATTA, BRITANY GARZAEETA [facility] [id number] [facility] 2024-04-17 09:30:00 2024-04-17 10:06:30 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 1..840.114 350.1.13.10 4.2.7.2.686 [id number] [facility] 2024-04-08 09:00:00 2024-04-08 09:25:12 Outpatient R MORRO CHRISTENSEN [facility] [id number] [facility] 2024-04-08 09:00:00 2024-04-08 09:25:12 Routine Visit Ad, Morro Moffett [facility] 1..840.114 350.1.13.10 4.2.7.2.686 [id number] 134 [id number] [facility] 2024-03-18 10:30:00 2024-03-18 10:38:15 Outpatient R ROSELYN WISE [facility] [id number] [facility] 2024-03-18 10:30:00 2024-03-18 10:38:15 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, Adc Lab Roselyn Wise [facility] 1.2.840.114 350.1.13.10 4.2.7.2.686 [id number] 353 [id number] [facility] 2024-03-18 10:00:00 2024-03-18 10:20:04 Routine Visit Morro ChristensenRoselyn roche [facility] 1.2.840.114 350.1.13.10 4.2.7.2.686 [id number] 134 [id number] [facility] 2024-03-03 00:00:00 2024-03-03 14:43:45 Telephone AdRoselyn roche [facility] 1.2.840.114 350.1.13.10 4.2.7.2.686 [id number] 134 [id number] [facility] 2024-02-20 09:15:00 2024-02-20 10:31:32 Outpatient R ROSELYN WISE VIVIAN [facility] [id number] [facility] 2024-02-20 09:15:00 2024-02-20 09:30:00 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, Adc Lab Roselyn Wise [facility] 1.2.840.114 350.1.13.10 4.2.7.2.686 [id number] [facility] 2024-02-19 16:00:00 2024-02-19 16:48:31 Outpatient R ROSELYN WISE [facility] [id number] [facility] 2024-02-19 16:00:00 2024-02-19 16:48:31 Routine Visit Adum, Roselyn Bolaños [facility] 1.2.840.114 350.1.13.10 4.2.7.2.686 [id number] 134 [id number] [facility] 2024-02-11 10:30:00 2024-02-11 10:42:42 Outpatient R MORRO CHRISTENSEN [facility] [id number] [facility] 2024-02-11 10:30:00 2024-02-11 10:42:42 Routine Visit Morro Christensen [facility] 1.2.840.114 350.1.13.10 4.2.7.2.686 [id number] 134 [id number] [facility] 2024-01-22 14:30:00 2024-01-22 14:45:00 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, Adc Lab Adum, Roselyn Bolaños [facility] 1.2.840.114 350.1.13.10 4.2.7.2.686 [id number] 353 [id number] [facility] 2024-01-22 13:15:00 2024-01-22 13:24:30 [facility] [id number] [facility] 2024-01-22 13:15:00 2024-01-22 13:24:30 Routine Visit Adum, Roselyn Bolaños [facility] 1.2.840.114 350.1.13.10 4.2.7.2.686 [id number] 134 [id number] [facility] 2024-01-18 09:15:00 2024-01-18 09:15:00 Outpatient R ADUM, [facility] [id number] [facility] 2024-01-11 14:00:00 2024-01-11 15:10:34 Outpatient R ADUM, ROSELYN [facility] [id number] [facility] 2024-01-11 14:00:00 2024-01-11 15:10:34 Initial Visit Adum, Roselyn Bolaños [facility] 1.2840.114 350.1.13.10 4.2.7.2.686 [id number] 134 [id number] [facility] 2023-04-26 13:30:00 2023-04-26 14:22:44 Outpatient R ADUM, ROSELYN [facility] [id number] [facility] 2023-04-26 13:30:00 2023-04-26 14:22:44 Routine Visit Adum, Roselyn Bolaños [facility] 1.2840.114 350.1.13.10 4.2.7.2.686 [id number] 134 [id number] [facility] 2023-04-10 13:30:00 2023-04-10 13:30:00 Outpatient R PEERZ, AUSTEN [facility] [id number] [facility] 2023-04-03 11:00:00 2023-04-03 12:02:24 Outpatient R ADUM, ROSELYN [facility] [id number] [facility] 2023-04-03 11:00:00 2023-04-03 12:02:24 Routine Visit Adum, Roselyn Bolaños [facility] 1.2840.114 350.1.13.10 4.2.7.2.686 [id number] 134 [id number] [facility] 2023-04-03 00:00:00 2023-04-03 00:00:00 Orders Only Doctor Unassigned, Suncook [facility] 1.2840.114 350.1.13.10 4.2.7.2.686 [id number] [facility] 2023-03-13 10:00:00 2023-03-13 10:08:35 Outpatient R ROSELYN WISE [facility] [id number] [facility] 2023-03-13 10:00:00 2023-03-13 10:08:35 Nurse Visit Nurse, [facility] AdumRoselyn [facility] 1.2840.114 350.1.13.10 4.2.7.2.686 [id number] 134 [id number] [facility] 2023-03-09 09:30:00 2023-03-09 10:07:06 Outpatient R AUSTEN PEREZ [facility] [id number] [facility] 2023-03-09 09:30:00 2023-03-09 10:07:06 Nurse Visit Nurse, [facility] Austen Perez [facility] 1.84.114 350.1.13.10 4.2.7.2.686 [id number] [facility] 2023-03-08 13:00:00 2023-03-08 13:00:00 Outpatient R ROSELYN WISE [facility] [id number] [facility] 2023-03-08 00:00:00 2023-03-08 00:00:00 Telephone AdumRoselyn [facility] 1.2840.114 350.1.13.10 4.2.7.2.686 [id number] 134 [id number] [facility] 2023-03-04 22:41:00 2023-03-07 11:50:00 Inpatient X AUSTEN PEREZ [facility] YAMILA [id number] [facility] 2023-03-04 22:41:00 2023-03-07 11:50:00 Hospital Encounter Perez Austen Galaviz AdRoselyn roche [facility] 1.840.114 350.1.13.10 4.2.7.2.686 [id number] [facility] 2023-03-06 20:01:56 2023-03-06 20:01:56 Anesthesia Event Jeffy Mejia [facility] 1.2.840.114 350.1.13.10 4.2.7.2.686 [id number] [facility] 2023-03-06 10:45:00 2023-03-06 10:45:00 Outpatient R ROSELYN WISE [facility] [id number] [facility] 2023-03-05 16:40:00 2023-03-05 18:24:00 Surgery Austen Perez [facility] 1.2.840.114 350.1.13.10 4.2.7.2.686 [id number] [id number] [facility] 2023-03-05 14:15:00 2023-03-05 16:09:00 Anesthesia Event Jeffy Mejia Abhilash Acosta [facility] 1.2.840.114 350.1.13.10 4.2.7.2.686 [id number] [id number] [facility] 2023-03-05 13:01:36 2023-03-05 13:01:36 Anesthesia Jeffy King [facility] 1.2.840.114 350.1.13.10 4.2.7.2.686 [id number] [facility] 2023-03-04 00:00:00 2023-03-04 00:00:00 Orders Only Doctor Unassigned, Suncook [facility] 1.2.840.114 350.1.13.10 4.2.7.2.686 [id number] [facility] 2023-03-01 00:00:00 2023-03-01 00:00:00 Patient Secure Msg Doctor Unassigned, [place] [facility] 1.2.840.114 350.1.13.10 4.2.7.2.686 [id number] [facility] 2023-02-28 15:30:00 2023-02-28 16:20:55 Outpatient R ADKALEY, ROSELYN [facility] [id number] [facility] 2023-02-28 15:30:00 2023-02-28 16:20:55 Routine Visit Adum, Roselyn Bolaños [facility] 1.2.840.114 350.1.13.10 4.2.7.2.686 [id number] 134 [id number] [facility] 2023-02-27 00:00:00 2023-02-27 00:00:00 Telephone Adkaley, Roselyn [facility] 1.2.840.114 350.1.13.10 4.2.7.2.686 [id number] 134 [id number] [facility] 2023-02-27 00:00:00 2023-02-27 00:00:00 Patient Secure Msg Adkaley [facility] 1.2.840.114 350.1.13.10 4.2.7.2.686 [id number] 134 [id number] [facility] 2023-02-20 10:45:00 2023-02-20 11:36:49 Outpatient R ADUM, ROSELYN [facility] [id number] [facility] 2023-02-20 10:45:00 2023-02-20 11:36:49 Routine Visit Adum, Ros[facility] 1.2.840.114 350.1.13.10 4.2.7.2.686 [id number] 134 [id number] [facility] 2023-02-17 00:41:00 2023-02-17 01:50:00 Outpatient X ADKALEY, [facility] [id number] [facility] 2023-02-17 00:41:00 2023-02-17 01:50:00 Emergency Adum, Roselyn Bolaños [facility] 1.2.840.114 350.1.13.10 4.2.7.2.686 [id number] [facility] 2023-02-17 00:00:00 2023-02-17 00:00:00 Orders Only Doctor Unassigned, [place] [facility] 1.2.840.114 350.1.13.10 4.2.7.2.686 [id number] [facility] 2023-02-15 00:00:00 2023-02-15 00:00:00 Patient Secure Msg Adum, [facility] 1.2.840.114 350.1.13.10 4.2.7.2.686 [id number] 134 [id number] [facility] 2023-02-13 13:45:00 2023-02-13 14:00:00 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, [facility] 1.2840.114 350.1.13.10 4.2.7.2.686 [id number] [facility] 2023-02-13 13:00:00 2023-02-13 13:44:28 Outpatient R ADKALEY, ROSELYN [facility] [id number] [facility] 2023-02-13 13:00:00 2023-02-13 13:44:28 Routine Visit Adkaley [facility] 1.2840.114 350.1.13.10 4.2.7.2.686 [id number] 134 [id number] [facility] 2023-02-13 00:00:00 2023-02-13 00:00:00 Orders Only Doctor Unassigned, [place] [facility] 1.2840.114 350.1.13.10 4.2.7.2.686 [id number] [facility] 2023-02-06 16:00:00 2023-02-06 16:53:14 Outpatient R ADUM, ROSELYN [facility] [id number] [facility] 2023-02-06 16:00:00 2023-02-06 16:53:14 Routine Visit Adkaley [facility] 1.2840.114 350.1.13.10 4.2.7.2.686 [id number] 134 [id number] [facility] 2023-01-24 16:00:00 2023-01-24 16:30:30 Outpatient R ADUM, [facility] [id number] [facility] 2023-01-24 16:00:00 2023-01-24 16:30:30 Routine Visit Ad, [facility] 1.2840.114 350.1.13.10 4.2.7.2.686 [id number] 134 [id number] [facility] 2023-01-10 15:45:00 2023-01-10 16:00:00 Routine Visit Ad, [facility] 1.2840.114 350.1.13.10 4.2.7.2.686 [id number] 134 [id number] [facility] 2023-01-10 15:45:00 2023-01-10 15:45:00 Outpatient R ADUM, [facility] [id number] [facility] 2023-01-05 00:00:00 2023-01-05 00:00:00 Patient Secure Msg Ad, [facility] 1.2840.114 350.1.13.10 4.2.7.2.686 [id number] 134 [id number] [facility] 2022-12-27 13:15:00 2022-12-27 13:31:10 Outpatient R ADKALEYROSELYN [facility] [id number] [facility] 2022-12-27 13:15:00 2022-12-27 13:31:10 Routine Visit Roselyn Wise [facility] 1.2.840.114 350.1.13.10 4.2.7.2.686 [id number] 134 [id number] [facility] 2022-12-18 00:00:00 2022-12-18 00:00:00 Patient Secure Msg Adkaley [facility] 1.2.840.114 350.1.13.10 4.2.7.2.686 [id number] 134 [id number] [facility] 2022-12-13 13:30:00 2022-12-13 13:35:12 Outpatient R ADKALEY [facility] [id number] [facility] 2022-12-13 13:30:00 2022-12-13 13:35:12 Routine Visit Hallie Moyakaley [facility] 1.2.840.114 350.1.13.10 4.2.7.2.686 [id number] 134 [id number] [facility] 2022-12-11 09:45:00 2022-12-11 11:10:23 Outpatient R FRANDY [facility] [id number] [facility] 2022-12-11 09:45:00 2022-12-11 10:00:00 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, 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 Lab Hernandezkaley [facility] 1.2840.114 350.1.13.10 4.2.7.2.686 [id number] [facility] 2022-11-15 11:00:00 2022-11-15 12:05:45 Outpatient R FRANDY [facility] [id number] [facility] 2022-11-15 11:00:00 2022-11-15 11:15:00 Routine Visit FrandyRoselyn [facility] 1..114 350.1.13.10 4.2.7.2.686 [id number] 134 [id number] [facility] 2022-11-14 08:00:00 2022-11-14 08:42:02 Outpatient P GARRY PEREZ [facility] [id number] [facility] 2022-11-14 08:00:00 2022-11-14 08:42:02 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, Garry Anderson [facility] [employer] [facility] 1.0.114 350.1.13.10 4.2.7.2.686 [id number] [facility] 2022-11-14 08:00:00 2022-11-14 08:00:00 Outpatient P [facility] [id number] [facility] 2022-11-09 00:00:00 2022-11-09 00:00:00 Telephone AdkaleyRoselyn [facility] 1..114 350.1.13.10 4.2.7.2.686 [id number] 134 [id number] [facility] 2022-10-30 00:00:00 2022-10-30 00:00:00 Orders Only Doctor Unassigned, Suncook [facility] 1.0.114 350.1.13.10 4.2.7.2.686 [id number] [id number] [facility] 2022-10-20 00:00:00 2022-10-20 00:00:00 Orders Only Doctor Unassigned, [place]cook [facility] 1.2840.114 350.1.13.10 4.2.7.2.686 [id number] [id number] [facility] 2022-10-18 11:15:00 2022-10-18 11:33:09 Outpatient R ADKALEY ROSELYN [facility] [id number] [facility] 2022-10-18 11:15:00 2022-10-18 11:33:09 Routine Visit Roselyn Wise [facility] 1.114 350.1.13.10 4.2.7.2.686 [id number] 134 [id number] [facility] 2022-10-17 10:00:00 2022-10-17 11:00:00 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, Adc Chris Reddy [facility] 1.2.114 350.1.13.10 4.2.7.2.686 [id number] 134 [id number] [facility] 2022-10-17 10:00:00 2022-10-17 10:55:30 Outpatient P CHRIS LAI [facility] [id number] [facility] 2022-10-06 10:30:00 2022-10-06 11:00:31 Outpatient P GEOVANI ISBELL [facility] [id number] General acute hospital 2022-10-06 10:30:00 2022-10-06 11:00:31 Telemedici ne Visit Kristal Ortega Joseph W [facility] [employer] WORK[employer] [facility] 1.284.114 350.1.13.10 4.2.7.2.686 [id number] [facility] 2022-10-06 00:00:00 2022-10-06 00:00:00 Orders Only Doctor Unassigned, [place]cook [facility] 1.2.114 350.1.13.10 4.2.7.2.686 [id number] [id number] [facility] 2022-09-28 14:45:00 2022-09-28 15:24:34 Outpatient R ADUM, ROSELYN [facility] [id number] [facility] 2022-09-28 14:45:00 2022-09-28 15:24:34 Routine Visit Adum, Roselyn [facility] 1.2.840.114 350.1.13.10 4.2.7.2.686 [id number] 134 [id number] [facility] 2022-09-28 00:00:00 2022-09-28 00:00:00 Patient Secure Msg Adum, [facility] 1.2.840.114 350.1.13.10 4.2.7.2.686 [id number] 134 [id number] [facility] 2022 00:00:00 2022 00:00:00 Patient Secure Msg Adum, [facility] 1.2.840.114 350.1.13.10 4.2.7.2.686 [id number] 134 [id number] [facility] 2022-09-20 15:00:00 2022-09-20 15:15:00 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686 [id number] 134 [id number] [facility] 2022-09-11 00:00:00 2022-09-11 00:00:00 Patient Secure Msg Cee Fajardo [facility] 1.2.840.114 350.1.13.10 4.2.7.2.686 [id number] 134 [id number] [facility] 2022-08-31 00:00:00 2022-08-31 00:00:00 Telephone Adum, Roselyn Bolaños [facility] 1.2.840.114 350.1.13.10 4.2.7.2.686 [id number] 134 [id number] [facility] 2022-08-30 09:45:00 2022-08-30 10:47:42 Outpatient R ADUM, ROSELYN [facility] [id number] [facility] 2022-08-30 09:45:00 2022-08-30 10:00:00 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, Adc Lab Adum, Roselyn Bolaños [facility] 1.2.840.114 350.1.13.10 4.2.7.2.686 [id number] 353 [id number] [facility] 2022-08-30 00:00:00 2022-08-30 00:00:00 Telephone Adum, Roselyn Bolaños [facility] 1.2.840.114 350.1.13.10 4.2.7.2.686 [id number] 134 [id number] [facility] 2022-08-30 00:00:00 2022-08-30 00:00:00 Orders Only Doctor Unassigned, Suncook [facility] 1.2.840.114 350.1.13.10 4.2.7.2.686 [id number] [id number] [facility] 2022-08-22 13:00:00 2022-08-22 13:26:54 Routine Visit Adkaley, Roselyn [facility] 1.2.840.114 350.1.13.10 4.2.7.2.686 [id number] 134 [id number] [facility] 2022-08-22 13:00:00 2022-08-22 13:26:54 Outpatient R ADKALEY, [facility] [id number] [facility] 2022-08-22 00:00:00 2022-08-22 00:00:00 Orders Only Doctor Unassigned, [place]cook [facility] 1.2.840.114 350.1.13.10 4.2.7.2.686 [id number] [id number] [facility] 2022-08-22 00:00:00 2022-08-22 00:00:00 Telephone Adum, [facility] 1.2.840.114 350.1.13.10 4.2.7.2.686 [id number] 134 [id number] [facility] 2022-08-18 00:00:00 2022-08-18 00:00:00 Telephone Adum, [facility] 1.2.840.114 350.1.13.10 4.2.7.2.686 [id number] 134 [id number] [facility] 2022-08-09 00:00:00 2022-08-09 00:00:00 Patient Secure Msg Adkaley [facility] 1.2.840.114 350.1.13.10 4.2.7.2.686 [id number] 134 [id number] [facility] 2022-08-03 10:15:00 2022-08-03 11:41:09 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, Adc Lab Adum, Roselyn L [facility] 1.2840.114 350.1.13.10 4.2.7.2.686 [id number] 353 [id number] [facility] 2022-08-03 10:15:00 2022-08-03 10:15:00 Outpatient R FRANDY [facility] [id number] [facility] 2022-08-01 00:00:00 2022-08-01 00:00:00 Patient Secure Msg Roselyn Wise [facility] 1.840.114 350.1.13.10 4.2.7.2.686 [id number] 134 [id number] [facility] 2022-07-31 11:45:00 2022-07-31 12:00:00 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, Adc Lab Nohemi [facility] 1.284.114 350.1.13.10 4.2.7.2.686 [id number] [facility] 2022-07-31 11:45:00 2022-07-31 11:33:57 Outpatient R NOHEMI [facility] [id number] [facility] 2022-07-31 10:30:00 2022-07-31 11:17:51 Routine Visit Yecenia Song [facility] 1.284.114 350.1.13.10 4.2.7.2.686 [id number] 134 [id number] [facility] 2022-07-31 00:00:00 2022-07-31 00:00:00 Orders Only Doctor Unassigned, [place]cook [facility] 1.2840.114 350.1.13.10 4.2.7.2.686 [id number] [id number] [facility] 2022-07-28 19:58:00 2022-07-29 00:04:00 Emergency ER PRAVIN PERRY [id number] [facility] 2022-07-26 00:00:00 2022-07-26 00:00:00 Patient Secure Carole Morrison [facility] 1.2.840.114 350.1.13.10 4.2.7.2.686 [id number] 134 [id number] [facility] 2022-07-25 14:30:00 2022-07-25 15:51:05 Initial Visit Roselyn Wise [facility] 1.2.840.114 350.1.13.10 4.2.7.2.686 [id number] 134 [id number] [facility] 2022-07-25 14:30:00 2022-07-25 15:51:05 Outpatient R HERNANDEZKALEY [facility] [id number] [facility] 2022-07-25 00:00:00 2022-07-25 00:00:00 Letter (Out) Roselyn Wise [facility] 1.2.840.114 350.1.13.10 4.2.7.2.686 [id number] 134 [id number] [facility] 2022-07-25 00:00:00 2022-07-25 00:00:00 Orders Only Doctor Unassigned, [place]cook [facility] 1.2.840.114 350.1.13.10 4.2.7.2.686 [id number] [id number] [facility] Results Test Description Test Time Test Comments Results Result Co mments Source [facility] (NA, K, CL, CO2, GLUCOSE, BUN, CREATININE, CA)2024-09-02 03:48:40* Test Item Value Reference Range Interpretation Comme nts NA (test code = 6010683040) 136 mmol/L 135-145 K (test code = 3455129600) 3.9 mmol/L 3.5-5.0 CL (test code = 3647473240) 105 mmol/L 98-108 CO2 TOTAL (test code = 6263090607) 24 mmol/L 23-31 AGAP (test code = 2457962785) 7 2-16 BUN (test code = 2211973140) 13 mg/dL 7-23 GLUCOSE (test code = 7300102808) 96 mg/dL 70-110 CREATININE (test code = 2160-0) 0.66 mg/dL 0.50-1.04 CALCIUM (test code = 9698956119) 9.1 mg/dL 8.6-10.6 eGFR (test code = 74631-2) 127.4 mL/min/1.73m2 CKD-EPI eGFR (20 21). Assuming creatinine has been stable day-to-day for at least three months, the eGFR indicates Category G1 (>= 90 mL/min/1.73 m2) [facility] WITH [id number] 03:35:36* Test Item Value Reference Range Interpretation Comme nts WBC (test code = 6690-2) 5.73 4.30-11.10 RBC (test code = 789-8) 3.94 3.93-5.25 HGB (test code = 718-7) 10.0 g/dL 11.6-15.0 L HCT (test code = 4544-3) 31.2 % 35.7-45.2 L MCV (test code = 787-2) 79.2 fL 80.6-95.5 L MCH (test code = 785-6) 25.4 pg 25.9-32.8 L MCHC (test code = 786-4) 32.1 g/dL 31.6-35.1 RDW-SD (test code = 31467-2) 44.8 fL 39.0-49.9 RDW-CV (test code = 788-0) 15.5 % 12.0-15.5 PLT (test code = 777-3) 273 166-358 MPV (test code = 73999-5) 11.8 fL 9.5-12.9 NRBC/100 WBC (test code = 6641752074) 0.0 0.0-10.0 NRBC x10^3 (test code = 2775939840) See_Comment [Automated messa ge] The system which generated this result transmitted reference range: 10*3/?L. The reference range was not used to interpret this result as normal/abnormal. GRAN MAT (NEUT) % (test code = 770-8) 61.0 % IMM GRAN % (test code = 4586972977) 0.30 % LYMPH % (test code = 736-9) 30.0 % MONO % (test code = 5905-5) 6.1 % EOS % (test code = 713-8) 2.4 % BASO % (test code = 706-2) 0.2 % GRAN MAT x10^3(ANC) (test code = 8312239125) 3.49 10*3/uL 1.88-7.09 IMM GRAN x10^3 (test code = 1651714741) 0.00-0.06 LYMPH x10^3 (test code = 731-0) 1.72 10*3/uL 1.32-3.29 MONO x10^3 (test code = 742-7) 0.35 10*3/uL 0.33-0.92 EOS x10^3 (test code = 711-2) 0.14 10*3/uL 0.03-0.39 BASO x10^3 (test code = 704-7) 0.01-0.07 Lab Interpretation (test code = 39845-2) Abnormal [facility] with Btpxnhjuiuur6371-38-74 09:59:13* Test Item Value Reference Range Interpretation Comme nts WBC (test code = 6690-2) 8.69 4.30-11.10 RBC (test code = 789-8) 3.90 3.93-5.25 L HGB (test code = 718-7) 9.8 g/dL 11.6-15.0 L HCT (test code = 4544-3) 30.7 % 35.7-45.2 L MCV (test code = 787-2) 78.7 fL 80.6-95.5 L MCH (test code = 785-6) 25.1 pg 25.9-32.8 L MCHC (test code = 786-4) 31.9 g/dL 31.6-35.1 RDW-SD (test code = 07112-9) 44.0 fL 39.0-49.9 RDW-CV (test code = 788-0) 15.8 % 12.0-15.5 H PLT (test code = 777-3) 232 166-358 MPV (test code = 63508-1) 12.0 fL 9.5-12.9 NRBC/100 WBC (test code = 1126780854) 0.0 0.0-10.0 NRBC x10^3 (test code = 3803232088) See_Comment [Automated messa ge] The system which generated this result transmitted reference range: 10*3/?L. The reference range was not used to interpret this result as normal/abnormal. GRAN MAT (NEUT) % (test code = 770-8) 72.8 % IMM GRAN % (test code = 9526317780) 0.30 % LYMPH % (test code = 736-9) 20.6 % MONO % (test code = 5905-5) 5.4 % EOS % (test code = 713-8) 0.7 % BASO % (test code = 706-2) 0.2 % GRAN MAT x10^3(ANC) (test code = 4365365565) 6.32 10*3/uL 1.88-7.09 IMM GRAN x10^3 (test code = 6892129656) 0.03 10*3/uL 0.00-0.06 LYMPH x10^3 (test code = 731-0) 1.79 10*3/uL 1.32-3.29 MONO x10^3 (test code = 742-7) 0.47 10*3/uL 0.33-0.92 EOS x10^3 (test code = 711-2) 0.06 10*3/uL 0.03-0.39 BASO x10^3 (test code = 704-7) 0.01-0.07 Lab Interpretation (test code = 23040-9) Abnormal [facility] with Gbqypwatxzxp0575-69-12 09:59:13* Test Item Value Reference Range Interpretation Comme nts WBC (test code = 6690-2) 8.69 4.30-11.10 RBC (test code = 789-8) 3.90 3.93-5.25 L HGB (test code = 718-7) 9.8 g/dL 11.6-15.0 L HCT (test code = 4544-3) 30.7 % 35.7-45.2 L MCV (test code = 787-2) 78.7 fL 80.6-95.5 L MCH (test code = 785-6) 25.1 pg 25.9-32.8 L MCHC (test code = 786-4) 31.9 g/dL 31.6-35.1 RDW-SD (test code = 12981-5) 44.0 fL 39.0-49.9 RDW-CV (test code = 788-0) 15.8 % 12.0-15.5 H PLT (test code = 777-3) 232 166-358 MPV (test code = 55579-9) 12.0 fL 9.5-12.9 NRBC/100 WBC (test code = 9237476999) 0.0 0.0-10.0 NRBC x10^3 (test code = 1096348070) See_Comment [Automated messa ge] The system which generated this result transmitted reference range: 10*3/?L. The reference range was not used to interpret this result as normal/abnormal. GRAN MAT (NEUT) % (test code = 770-8) 72.8 % IMM GRAN % (test code = 9016139591) 0.30 % LYMPH % (test code = 736-9) 20.6 % MONO % (test code = 5905-5) 5.4 % EOS % (test code = 713-8) 0.7 % BASO % (test code = 706-2) 0.2 % GRAN MAT x10^3(ANC) (test code = 8369177156) 6.32 10*3/uL 1.88-7.09 IMM GRAN x10^3 (test code = 6348699584) 0.03 10*3/uL 0.00-0.06 LYMPH x10^3 (test code = 731-0) 1.79 10*3/uL 1.32-3.29 MONO x10^3 (test code = 742-7) 0.47 10*3/uL 0.33-0.92 EOS x10^3 (test code = 711-2) 0.06 10*3/uL 0.03-0.39 BASO x10^3 (test code = 704-7) 0.01-0.07 Lab Interpretation (test code = 09298-7) [facility] Qgzds5133-36-29 13:43:00Purvi Alvarez CRNA ? ? 08/28/2024 ?8:07 AM Central Neuraxial Block Date/Time: 08/28/2024 7:43 AM Performed by: Jeffy Mejia CRNAAuthorized by: Ade Bustos MD ?Patient Location: OREnd Time: 08/28/2024 7:46 AMReason for Block: OB request, Patient request and Surgical anesthesiaStaff: ?Anesthesiologist: Ade Bustos MD ?Resident/DYE PENETRANT TESTING TECHNICIAN: Jeffy Mejia CRNA ?Performed by: resident/CRN APreanesthetic Checklist: patient identified, IV checked, risks and benefits explained, monitors and equipment checked, timeout performed, pre-op evaluation, surgical consent, site marked, ob/surgical consent approval, ob/surgical consent verified and anesthesia consentProcedure: ?Type of Neuraxial: Single Shot and Spinal ? Sterility Prep cap, drape, gloves, hand hygiene and mask ? ?Sedation Level no sedation ?Patient Position: sitting ?Prep: Betadine and patient draped ? ?Monitoring: heart rate, office assistant / EKG, continuous pulse ox, heart rate / toco and NIBP ?Location: lumbar (1-5) ?Lumbar: L3-L4 ?Approach: midline ? ?Technique: single shot ?Guidance with: landmark technique}Ep idural/Spinal [place] and/or Catheter: ?Epidural/Spinal Kit: BBraun ?Needle Type: Other ?Needle Gauge: 25 G ?Needle Length: 3.5 in (8.89 cm) ?Number of Attempts: 1Assessment: ?Sensory Level: above T10 ?Thoracic: T9 ?Block Outcome: successful block, patient tolerated procedure well, appropriate sensory block, appropriate motor block and patient comfortable ? ?Procedure Assessment: patient tolerated procedure well with no complicationsNotes: ? Smooth and atraumatic, (+) Local, (+) [facility] Egqy2811-29-61 18:08:34* Test Item Value Reference Range Interpretation Comme nts WBC (test code = 6690-2) 5.71 4.30-11.10 RBC (test code = 789-8) 4.22 3.93-5.25 HGB (test code = 718-7) 10.7 g/dL 11.6-15.0 L HCT (test code = 4544-3) 33.0 % 35.7-45.2 L MCV (test code = 787-2) 78.2 fL 80.6-95.5 L MCH (test code = 785-6) 25.4 pg 25.9-32.8 L MCHC (test code = 786-4) 32.4 g/dL 31.6-35.1 RDW-SD (test code = 94646-7) 43.6 fL 39.0-49.9 RDW-CV (test code = 788-0) 15.6 % 12.0-15.5 H PLT (test code = 777-3) 263 166-358 MPV (test code = 65555-6) 11.3 fL 9.5-12.9 NRBC/100 WBC (test code = 1187351172) 0.0 0.0-10.0 NRBC x10^3 (test code = 2506280108) See_Comment [Automated messa ge] The system which generated this result transmitted reference range: 10*3/?L. The reference range was not used to interpret this result as normal/abnormal. GRAN MAT (NEUT) % (test code = 770-8) 66.0 % IMM GRAN % (test code = 6934306550) 0.40 % LYMPH % (test code = 736-9) 26.3 % MONO % (test code = 5905-5) 6.0 % EOS % (test code = 713-8) 0.9 % BASO % (test code = 706-2) 0.4 % GRAN MAT x10^3(ANC) (test code = 6453230003) 3.78 10*3/uL 1.88-7.09 IMM GRAN x10^3 (test code = 6267618170) 0.00-0.06 LYMPH x10^3 (test code = 731-0) 1.50 10*3/uL 1.32-3.29 MONO x10^3 (test code = 742-7) 0.34 10*3/uL 0.33-0.92 EOS x10^3 (test code = 711-2) 0.05 10*3/uL 0.03-0.39 BASO x10^3 (test code = 704-7) 0.01-0.07 Lab Interpretation (test code = 13440-0) [facility]normal [facility] Specific Undptjv9790-46-58 19:14:00* Test Item Value Reference Range Interpretation Comme nts POCT PH U (test code = 3254) n/a 5-8 POCT U LEUK EST (test code = 3263) n/a Negative - Negative POCT U NIT (test code = 3262) n/a Negative - Negati ve POCT U PROT (test code = 3259) negative Negative - Negat mana POCT U GLU (test code = 3256) negative Negative - Negati ve POCT U KETONE (test code = 3258) n/a Negative - Neg ative POCT U BLD (test code = 3257) n/a Negative - Negati ve [facility]/o Specific Cxvpwab0976-27-22 20:17:00* Test Item Value Reference Range Interpretation Comme nts POCT PH U (test code = 3254) 8 mg/dl 5-8 POCT U LEUK EST (test code = 3263) trace Negative - Negative POCT U NIT (test code = 3262) negative Negative - Negati ve POCT U PROT (test code = 3259) negative Negative - Negat mana POCT U GLU (test code = 3256) negative Negative - Negati ve POCT U KETONE (test code = 3258) negative Negative - Neg ative POCT U BLD (test code = 3257) negative Negative - Negati ve [facility] [id number] 16:17:52 Ordered by an unspecified provider.[facility] 2024-08-12 21:03:49Ordered by an unspecified provider.[facility] Urinalysis w/o Specific [id number] 16:27:00* Test Item Value Reference Range Interpretation Comme nts POCT PH U (test code = 3254) n/a 5-8 POCT U LEUK EST (test code = 3263) n/a Negative - Negative POCT U NIT (test code = 3262) n/a Negative - Negati ve POCT U PROT (test code = 3259) negative Negative - Negat mana POCT U GLU (test code = 3256) negative Negative - Negati ve POCT U KETONE (test code = 3258) n/a Negative - Neg ative POCT U BLD (test code = 3257) n/a Negative - Negati ve [facility] Urinalysis w/o Specific [id number] 14:19:00* Test Item Value Reference Range Interpretation Comme nts POCT PH U (test code = 3254) n/a 5-8 POCT U LEUK EST (test code = 3263) n/a Negative - N egative POCT U NIT (test code = 3262) n/a Negative - Negati ve POCT U PROT (test code = 3259) neg Negative - Negat mana POCT U GLU (test code = 3256) neg Negative - Negati ve POCT U KETONE (test code = 3258) n/a Negative - Neg ative POCT U BLD (test code = 3257) n/a Negative - Negati ve [facility] Urinalysis w/o Specific [id number] 20:59:00* Test Item Value Reference Range Interpretation Comme nts POCT PH U (test code = 3254) n/a 5-8 POCT U LEUK EST (test code = 3263) n/a Negative - Negative POCT U NIT (test code = 3262) n/a Negative - Negati ve POCT U PROT (test code = 3259) negative Negative - Negat mana POCT U GLU (test code = 3256) negative Negative - Negati ve POCT U KETONE (test code = 3258) n/a Negative - Neg ative POCT U BLD (test code = 3257) n/a Negative - Negati ve [facility] Urinalysis w/o Specific [id number] 18:23:00* Test Item Value Reference Range Interpretation Comme nts POCT PH U (test code = 3254) n/a 5-8 POCT U LEUK EST (test code = 3263) n/a Negative - Negative POCT U NIT (test code = 3262) n/a Negative - Negati ve POCT U PROT (test code = 3259) negative Negative - Negat mana POCT U GLU (test code = 3256) normal Negative - Negati ve POCT U KETONE (test code = 3258) n/a Negative - Neg ative POCT U BLD (test code = 3257) n/a Negative - Negati ve [facility] Urinalysis w/o Specific [id number] 18:00:00* Test Item Value Reference Range Interpretation Comme nts POCT PH U (test code = 3254) n/a 5-8 POCT U LEUK EST (test code = 3263) n/a Negative - Negative POCT U NIT (test code = 3262) n/a Negative - Negati ve POCT U PROT (test code = 3259) Negative Negative - Negat mana POCT U GLU (test code = 3256) Negative Negative - Negati ve POCT U KETONE (test code = 3258) n/a Negative - Neg ative POCT U BLD (test code = 3257) n/a Negative - Negati ve [facility] Urinalysis w/o Specific [id number] 18:40:00* Test Item Value Reference Range Interpretation Comme nts POCT PH U (test code = 3254) n/a 5-8 POCT U LEUK EST (test code = 3263) n/a Negative - N egative POCT U NIT (test code = 3262) n/a Negative - Negati ve POCT U PROT (test code = 3259) neg Negative - Negat mana POCT U GLU (test code = 3256) neg Negative - Negati ve POCT U KETONE (test code = 3258) n/a Negative - Neg ative POCT U BLD (test code = 3257) n/a Negative - Negati ve [facility] Urinalysis W Specific [id number] 17:40:00* Test Item Value Reference Range Interpretation Comme nts POCT U SP GRAV (test code = 3255) 1.020 mg/dl 1.005-1.025 POCT PH U (test code = 3254) 5 mg/dl 5-8 POCT U LEUK EST (test code = 3263) ++ Negative - Negative POCT U NIT (test code = 3262) - Negative - Negati ve POCT U PROT (test code = 3259) 30+ Negative - Negative POCT U GLU (test code = 3256) - Negative - Negati ve POCT U KETONE (test code = 3258) - Negative - Negative POCT U UROBILI (test code = 3260) - 0.2-1 POCT U BILI (test code = 3261) - Negative - Negative POCT U BLD (test code = 3257) trace Negative - Negati ve POCT U COLOR (test code = 3266) yellow POCT U APPEAR (test code = 3267) clear Lab Interpretation (test cod e = 08626-6) Abnormal [facility] Urinalysis w/o Specific [id number] 15:59:00* Test Item Value Reference Range Interpretation Comme nts POCT PH U (test code = 3254) n/a 5-8 POCT U LEUK EST (test code = 3263) n/a Negative - Negative POCT U NIT (test code = 3262) n/a Negative - Negati ve POCT U PROT (test code = 3259) trace Negative - Negat mana POCT U GLU (test code = 3256) negative Negative - Negati ve POCT U KETONE (test code = 3258) n/a Negative - Neg ative POCT U BLD (test code = 3257) n/a Negative - [facility]ati ve [facility] [id number] 14:00:00* Test Item Value Reference Range Interpretation Comme nts POCT PH U (test code = 3254) n.a 5-8 POCT U LEUK EST (test code = 3263) n.a Negative - Negative POCT U NIT (test code = 3262) n.a Negative - Negati ve POCT U PROT (test code = 3259) negative Negative - Negat mana POCT U GLU (test code = 3256) negative Negative - Negati ve POCT U KETONE (test code = 3258) n.a Negative - Neg ative POCT U BLD (test code = 3257) n.a Negative - Negati ve [facility] Urinalysis w/o Specific [id number] 15:10:00* Test Item Value Reference Range Interpretation Comme nts POCT PH U (test code = 3254) n/a 5-8 POCT U LEUK EST (test code = 3263) n/a Negative - Negative POCT U NIT (test code = 3262) n/a Negative - Negati ve POCT U PROT (test code = 3259) negative Negative - Negat mana POCT U GLU (test code = 3256) negative Negative - Negati ve POCT U KETONE (test code = 3258) n/a Negative - Neg ative POCT U BLD (test code = 3257) n/a Negative - Negati ve [facility] LAB [id number] 13:20:17Ordered by an unspecified provider.[facility] LAB RESULTS 2024-03-10 16:38:49Ordered by an unspecified provider.[facility] Urinalysis w/o Specific [id number] 21:11:00* Test Item Value Reference Range Interpretation Comme nts POCT PH U (test code = 3254) n/a 5-8 POCT U LEUK EST (test code = 3263) n/a Negative - Negative POCT U NIT (test code = 3262) n/a Negative - Negati ve POCT U PROT (test code = 3259) Negative Negative - Negat mana POCT U GLU (test code = 3256) Normal Negative - Negati ve POCT U KETONE (test code = 3258) n/a Negative - Neg ative POCT U BLD (test code = 3257) n/a Negative - Negati ve [facility] [id number] 21:11:00* Test Item Value Reference Range Interpretation Comme nts POCT PH U (test code = 3254) n/a 5-8 POCT U LEUK EST (test code = 3263) n/a Negative - Negative POCT U NIT (test code = 3262) n/a Negative - Negati ve POCT U PROT (test code = 3259) Negative Negative - Negat mana POCT U GLU (test code = 3256) Normal Negative - Negati ve POCT U KETONE (test code = 3258) n/a Negative - Neg ative POCT U BLD (test code = 3257) n/a Negative - Negati ve [facility] Urinalysis w/o Specific [id number] 15:28:00* Test Item Value Reference Range Interpretation Comme nts POCT PH U (test code = 3254) 5 mg/dl 5-8 POCT U LEUK EST (test code = 3263) Negative Negative - Negative POCT U NIT (test code = 3262) Negative Negative - Negati ve POCT U PROT (test code = 3259) Negative Negative - Negat mana POCT U GLU (test code = 3256) Negative Negative - Negati ve POCT U KETONE (test code = 3258) Negative Negative - Neg ative POCT U BLD (test code = 3257) Negative Negative - Negati ve [facility] Urinalysis w/o Specific [id number] 18:15:00* Test Item Value Reference Range Interpretation Comme nts POCT PH U (test code = 3254) n/a 5-8 POCT U LEUK EST (test code = 3263) n/a Negative - Negative POCT U NIT (test code = 3262) n/a Negative - Negati ve POCT U PROT (test code = 3259) negative Negative - Negat mana POCT U GLU (test code = 3256) negative Negative - Negati ve POCT U KETONE (test code = 3258) n/a Negative - Neg ative POCT U BLD (test code = 3257) n/a Negative - Negati ve [facility] Urinalysis w/o Specific [id number] 19:32:00* Test Item Value Reference Range Interpretation Comme nts POCT PH U (test code = 3254) n/a 5-8 POCT U LEUK EST (test code = 3263) n/a Negative - N egative POCT U NIT (test code = 3262) n/a Negative - Negati ve POCT U PROT (test code = 3259) neg Negative - Negat mana POCT U GLU (test code = 3256) neg Negative - Negati ve POCT U KETONE (test code = 3258) n/a Negative - Neg ative POCT U BLD (test code = 3257) n/a Negative - Negati ve [facility] [id number] 19:32:00* Test Item Value Reference Range Interpretation Comme nts POCT PREG (test code = 1605) Positive On board controls acceptable with C Line (test code = 3574) Yes POCT PREG LOT # (test code = 3575) POCT PREG TEST DATE ( test code = 3576) [facility] URINALYSIS W/O SPECIFIC [id number] 18:46:00* Test Item Value Reference Range Interpretation Comme nts POCT PH U (test code = 3254) 5 mg/dl 5-8 POCT U LEUK EST (test code = 3263) trace Negative - Negative POCT U NIT (test code = 3262) negative Negative - Negative POCT U PROT (test code = 3259) trace Negative - Negative POCT U GLU (test code = 3256) negative Negative - Negative POCT U KETONE (test code = 3258) negative Negative - Negative POCT U BLD (test code = 3257) negative Negative - Negative MALLIKA (test code = MALLIKA) accurate developme nt and interpretation of all internal controls' Lab Interpretation (test code = 36710-2) Abnormal [facility] [id number] 16:20:00* Test Item Value Reference Range Interpretation Comme nts POCT PREG (test code = 1605) Negative On board controls acceptable with C Line (test code = 3574) Yes POCT PREG LOT # (test code = 3575) POCT PREG TEST DATE ( test code = 3576) [facility] OR DARCIE ONLY - [id number] 05:37:46* Test Item Value Reference Range Interpretation Comme nts RPR (Qualitative) (test code = 67907-7) Nonreactive Nonreactive Lab Interpretation (test cod e = 66658-4) Normal [facility] OR DARCIE ONLY - [id number] 05:37:46* Test Item Value Reference Range Interpretation Comme nts RPR (Qualitative) (test code = 68054-5) Nonreactive Nonreactive Lab Interpretation (test cod e = 72400-0) Normal [facility] (D) IMMUNE [id number] 03:26:10* Test Item Value Reference Range Interpretation Comme nts RHIG CANDIDATE? (test code = 5188) No- see comment Patient is not a candidate for RhIg- Patient is Rh Positive.Performed at [facility] Laboratory Services [facility] Blood [address] [place] [address] Free: [phone] No. [id number] [facility] (D) IMMUNE [id number] 03:26:10* Test Item Value Reference Range Interpretation Comme nts RHIG CANDIDATE? (test code = 5188) No- see comment Patient is not a candidate for RhIg- Patient is Rh Positive.Performed at [facility] Laboratory Services - [facility] Blood [address] [place] [address] Free: [phone] No. [id number] [facility] B Surface [id number] 16:32:18 * Test Item Value Reference Range Interpretation Comme nts HBsAg Semi-Quantitative (argentina t code = 5195-3) 0.04 Negative [facility] B Surface [id number] 16:32:18 * Test Item Value Reference Range Interpretation Comme nts HBsAg Semi-Quantitative (argentina t code = 5195-3) 0.04 [facility] [id number] 11:11:12* Test Item Value Reference Range Interpretation Comme nts HIV Semi-quantitative (test code = 92695-5) 0.09 Negative MALLIKA (test code = MALLIKA) Non-reactive for HIV-1 antigen and HIV-1/HIV-2 antibodies. ?No laboratory evidence of HIV infection. ?Repeat in 2-4 weeks if acute HIV infection is suspected. [facility] [id number] 11:11:12* Test Item Value Reference Range Interpretation Comme nts HIV Semi-quantitative (test code = 41814-4) 0.09 Negative MALLIKA (test code = MALLIKA) Non-reactive for HIV-1 antigen and HIV-1/HIV-2 antibodies. ?No laboratory evidence of HIV infection. ?Repeat in 2-4 weeks if acute HIV infection is suspected. [facility] with [id number] 07:11:40* Test Item Value Reference Range Interpretation Comme nts WBC (test code = 6690-2) 10.43 See_Comment [Automated messa ge] The system which generated this result transmitted reference range: 4.30 - 11.10 10*3/?L. The reference range was not used to interpret this result as normal/abnormal. RBC (test code = 789-8) 4.72 See_Comment [Automated messa ge] The system which generated this result transmitted reference range: 3.93 - 5.25 10*6/?L. The reference range was not used to interpret this result as normal/abnormal. HGB (test code = 718-7) 12.5 g/dL 11.6-15.0 HCT (test code = 4544-3) 37.5 % 35.7-45.2 MCV (test code = 787-2) 79.4 fL 80.6-95.5 L MCH (test code = 785-6) 26.5 pg 25.9-32.8 MCHC (test code = 786-4) 33.3 g/dL 31.6-35.1 RDW-SD (test code = 81663-0) 42.5 fL 39.0-49.9 RDW-CV (test code = 788-0) 14.7 % 12.0-15.5 PLT (test code = 777-3) 258 See_Comment [Automated messa ge] The system which generated this result transmitted reference range: 166 - 358 10*3/?L. The reference range was not used to interpret this result as normal/abnormal. MPV (test code = 15314-9) 12.1 fL 9.5-12.9 NRBC/100 WBC (test code = 2366866930) 0.0 See_Comment [Automated [employer] ss[employer]] The system which generated this result transmitted reference range: 0.0 - 10.0 /100 WBCs. The reference range was not used to interpret this result as normal/abnormal. NRBC x10^3 (test code = 0682980733) See_Comment [Automated messa ge] The system which generated this result transmitted reference range: 10*3/?L. The reference range was not used to interpret this result as normal/abnormal. GRAN MAT (NEUT) % (test code = 770-8) 67.9 % IMM GRAN % (test code = 9327041113) 0.50 % LYMPH % (test code = 736-9) 25.2 % MONO % (test code = 5905-5) 5.8 % EOS % (test code = 713-8) 0.4 % BASO % (test code = 706-2) 0.2 % GRAN MAT x10^3(ANC) (test code = 4419715861) 7.08 10*3/uL 1.88-7.09 IMM GRAN x10^3 (test code = 8570537788) 0.05 10*3/uL 0.00-0.06 LYMPH x10^3 (test code = 731-0) 2.63 10*3/uL 1.32-3.29 MONO x10^3 (test code = 742-7) 0.61 10*3/uL 0.33-0.92 EOS x10^3 (test code = 711-2) 0.04 10*3/uL 0.03-0.39 BASO x10^3 (test code = 704-7) 0.01-0.07 Lab Interpretation (test code = 94780-5) Abnormal [facility] with [id number] 07:11:40* Test Item Value Reference Range Interpretation Comme nts WBC (test code = 6690-2) 10.43 See_Comment [Automated messa ge] The system which generated this result transmitted reference range: 4.30 - 11.10 10*3/?L. The reference range was not used to interpret this result as normal/abnormal. RBC (test code = 789-8) 4.72 See_Comment [Automated messa ge] The system which generated this result transmitted reference range: 3.93 - 5.25 10*6/?L. The reference range was not used to interpret this result as normal/abnormal. HGB (test code = 718-7) 12.5 g/dL 11.6-15.0 HCT (test code = 4544-3) 37.5 % 35.7-45.2 MCV (test code = 787-2) 79.4 fL 80.6-95.5 L MCH (test code = 785-6) 26.5 pg 25.9-32.8 MCHC (test code = 786-4) 33.3 g/dL 31.6-35.1 RDW-SD (test code = 50270-0) 42.5 fL 39.0-49.9 RDW-CV (test code = 788-0) 14.7 % 12.0-15.5 PLT (test code = 777-3) 258 See_Comment [Automated messa ge] The system which generated this result transmitted reference range: 166 - 358 10*3/?L. The reference range was not used to interpret this result as normal/abnormal. MPV (test code = 65233-2) 12.1 fL 9.5-12.9 NRBC/100 WBC (test code = 8768911923) 0.0 See_Comment [Automated [employer]] The system which generated this result transmitted reference range: 0.0 - 10.0 /100 WBCs. The reference range was not used to interpret this result as normal/abnormal. NRBC x10^3 (test code = 3957840046) See_Comment [Automated messa ge] The system which generated this result transmitted reference range: 10*3/?L. The reference range was not used to interpret this result as normal/abnormal. GRAN MAT (NEUT) % (test code = 770-8) 67.9 % IMM GRAN % (test code = 8882932286) 0.50 % LYMPH % (test code = 736-9) 25.2 % MONO % (test code = 5905-5) 5.8 % EOS % (test code = 713-8) 0.4 % BASO % (test code = 706-2) 0.2 % GRAN MAT x10^3(ANC) (test code = 7238929389) 7.08 10*3/uL 1.88-7.09 IMM GRAN x10^3 (test code = 5641680728) 0.05 10*3/uL 0.00-0.06 LYMPH x10^3 (test code = 731-0) 2.63 10*3/uL 1.32-3.29 MONO x10^3 (test code = 742-7) 0.61 10*3/uL 0.33-0.92 EOS x10^3 (test code = 711-2) 0.04 10*3/uL 0.03-0.39 BASO x10^3 (test code = 704-7) 0.01-0.07 Lab Interpretation (test code = 66822-7) [facility] [id number] 06:55:00 * Test Item Value Reference Range Interpretation Comme nts ABO & RH (test code = 20) A Positive IAT (test code = 1185) Negative [facility] and Screen - ONCE [id number] 06:55:00 * Test Item Value Reference Range Interpretation Comme nts ABO & RH (test code = 20) A Positive IAT (test code = 1185) Negative [facility] [id number] 20:20:00* Test Item Value Reference Range Interpretation Comme nts POCT PH U (test code = 3254) N/A 5-8 POCT U LEUK EST (test code = 3263) N/A Negative - Negative POCT U NIT (test code = 3262) N/A Negative - Negati ve POCT U PROT (test code = 3259) Negative Negative - Negat mana POCT U GLU (test code = 3256) Negative Negative - Negati ve POCT U KETONE (test code = 3258) N/A Negative - Neg ative POCT U BLD (test code = 3257) N/A Negative - Negati ve [facility]/O SPECIFIC [id number] 20:20:00* Test Item Value Reference Range Interpretation Comme nts POCT PH U (test code = 3254) N/A 5-8 POCT U LEUK EST (test code = 3263) N/A Negative - Negative POCT U NIT (test code = 3262) N/A Negative - Negati ve POCT U PROT (test code = 3259) Negative Negative - Negat mana POCT U GLU (test code = 3256) Negative Negative - Negati ve POCT U KETONE (test code = 3258) N/A Negative - Neg ative POCT U BLD (test code = 3257) N/A Negative - Negati ve [facility] URINALYSIS W/O SPECIFIC [id number] 16:12:00* Test Item Value Reference Range Interpretation Comme nts POCT PH U (test code = 3254) n/a 5-8 POCT U LEUK EST (test code = 3263) n/a Negative - N egative POCT U NIT (test code = 3262) n/a Negative - Negati ve POCT U PROT (test code = 3259) neg Negative - Negat mana POCT U GLU (test code = 3256) neg Negative - Negati ve POCT U KETONE (test code = 3258) n/a Negative - Neg ative POCT U BLD (test code = 3257) n/a Negative - Negati ve [facility] URINALYSIS W/O SPECIFIC [id number] 18:45:00* Test Item Value Reference Range Interpretation Comme nts POCT PH U (test code = 3254) n/a 5-8 POCT U LEUK EST (test code = 3263) n/a Negative - N egative POCT U NIT (test code = 3262) n/a Negative - Negati ve POCT U PROT (test code = 3259) neg Negative - Negat mana POCT U GLU (test code = 3256) neg Negative - Negati ve POCT U KETONE (test code = 3258) n/a Negative - Neg ative POCT U BLD (test code = 3257) n/a Negative - Negati ve [facility] URINALYSIS W/O SPECIFIC [id number] 21:41:00* Test Item Value Reference Range Interpretation Comme nts POCT PH U (test code = 3254) n/a 5-8 POCT U LEUK EST (test code = 3263) n/a Negative - Negative POCT U NIT (test code = 3262) n/a Negative - Negati ve POCT U PROT (test code = 3259) negative Negative - Negat mana POCT U GLU (test code = 3256) negative Negative - Negati ve POCT U KETONE (test code = 3258) n/a Negative - Neg ative POCT U BLD (test code = 3257) n/a Negative - Negati ve [facility] URINALYSIS W/O SPECIFIC [id number] 21:00:00* Test Item Value Reference Range Interpretation Comme nts POCT PH U (test code = 3254) n/a 5-8 POCT U LEUK EST (test code = 3263) n/a Negative - Negative POCT U NIT (test code = 3262) n/a Negative - Negati ve POCT U PROT (test code = 3259) negative Negative - Negat mana POCT U GLU (test code = 3256) negative Negative - Negati ve POCT U KETONE (test code = 3258) n/a Negative - Neg ative POCT U BLD (test code = 3257) n/a Negative - Negati ve [facility] URINALYSIS W/O SPECIFIC [id number] 20:38:00* Test Item Value Reference Range Interpretation Comme nts POCT PH U (test code = 3254) n/a 5-8 POCT U LEUK EST (test code = 3263) n/a Negative - Negative POCT U NIT (test code = 3262) n/a Negative - Negati ve POCT U PROT (test code = 3259) negative Negative - Negat mana POCT U GLU (test code = 3256) negative Negative - Negati ve POCT U KETONE (test code = 3258) n/a Negative - Neg ative POCT U BLD (test code = 3257) n/a Negative - Negati ve [facility] URINALYSIS W/O SPECIFIC [id number] 19:13:00* Test Item Value Reference Range Interpretation Comme nts POCT PH U (test code = 3254) N/A 5-8 POCT U LEUK EST (test code = 3263) N/A Negative - Negative POCT U NIT (test code = 3262) N/A Negative - Negati ve POCT U PROT (test code = 3259) Negative Negative - Negat mana POCT U GLU (test code = 3256) Negative Negative - Negati ve POCT U KETONE (test code = 3258) N/A Negative - Neg ative POCT U BLD (test code = 3257) N/A Negative - Negati ve [facility] URINALYSIS W/O SPECIFIC [id number] 19:21:00* Test Item Value Reference Range Interpretation Comme nts POCT PH U (test code = 3254) N/A 5-8 POCT U LEUK EST (test code = 3263) N/A Negative - Negative POCT U NIT (test code = 3262) N/A Negative - Negati ve POCT U PROT (test code = 3259) negative Negative - Negat mana POCT U GLU (test code = 3256) Trace Negative - Negati ve POCT U KETONE (test code = 3258) N/A Negative - Neg ative POCT U BLD (test code = 3257) N/A Negative - Negati ve [facility] URINALYSIS W/O SPECIFIC [id number] 16:54:00* Test Item Value Reference Range Interpretation Comme nts POCT PH U (test code = 3254) n/a 5-8 POCT U LEUK EST (test code = 3263) n/a Negative - Negative POCT U NIT (test code = 3262) n/a Negative - Negati ve POCT U PROT (test code = 3259) negative Negative - Negat mana POCT U GLU (test code = 3256) negative Negative - Negati ve POCT U KETONE (test code = 3258) n/a Negative - Neg ative POCT U BLD (test code = 3257) n/a Negative - Negati ve [facility] URINALYSIS W SPECIFIC [id number] 17:23:00* Test Item Value Reference Range Interpretation Comme nts POCT U SP GRAV (test code = 3255) N/A 1.005-1.025 POCT PH U (test code = 3254) N/A 5-8 POCT U LEUK EST (test code = 3263) N/A Negative - Negative POCT U NIT (test code = 3262) N/A Negative - Negati ve POCT U PROT (test code = 3259) Negative Negative - Negat mana POCT U GLU (test code = 3256) Negative Negative - Negati ve POCT U KETONE (test code = 3258) N/A Negative - Neg ative POCT U UROBILI (test code = 3260) N/A 0.2-1 POCT U BILI (test code = 3261) N/A Negative - Negat mana POCT U BLD (test code = 3257) N/A Negative - Negati ve POCT U COLOR (test code = 3266) Yellow POCT U APPEAR (test code = 3267) Clear [facility] URINALYSIS W/O SPECIFIC [id number] 21:43:00* Test Item Value Reference Range Interpretation Comme nts POCT PH U (test code = 3254) n/a 5-8 POCT U LEUK EST (test code = 3263) n/a Negative - Negative POCT U NIT (test code = 3262) n/a Negative - Negati ve POCT U PROT (test code = 3259) negative Negative - Negat mana POCT U GLU (test code = 3256) negaitve Negative - Negati ve POCT U KETONE (test code = 3258) n/a Negative - Neg ative POCT U BLD (test code = 3257) n/a Negative - Negati ve [facility] URINALYSIS W/O SPECIFIC [id number] 20:27:00* Test Item Value Reference Range Interpretation Comme nts POCT PH U (test code = 3254) n/a 5-8 POCT U LEUK EST (test code = 3263) n/a Negative - Negative POCT U NIT (test code = 3262) n/a Negative - Negati ve POCT U PROT (test code = 3259) negative Negative - Negat mana POCT U GLU (test code = 3256) negative Negative - Negati ve POCT U KETONE (test code = 3258) n/a Negative - Neg ative POCT U BLD (test code = 3257) n/a Negative - Negati ve [facility] URINALYSIS W/O SPECIFIC [id number] 17:55:00* Test Item Value Reference Range Interpretation Comme nts POCT PH U (test code = 3254) n/a 5-8 POCT U LEUK EST (test code = 3263) n/a Negative - Negative POCT U NIT (test code = 3262) n/a Negative - Negati ve POCT U PROT (test code = 3259) negative Negative - Negat mana POCT U GLU (test code = 3256) negative Negative - Negati ve POCT U KETONE (test code = 3258) n/a Negative - Neg ative POCT U BLD (test code = 3257) n/a Negative - Negati ve [facility] URINALYSIS W/O SPECIFIC [id number] 15:45:00* Test Item Value Reference Range Interpretation Comme nts POCT PH U (test code = 3254) n/a 5-8 POCT U LEUK EST (test code = 3263) n/a Negative - Negative POCT U NIT (test code = 3262) n/a Negative - Negati ve POCT U PROT (test code = 3259) negative Negative - Negat mana POCT U GLU (test code = 3256) negative Negative - Negati ve POCT U KETONE (test code = 3258) n/a Negative - Neg ative POCT U BLD (test code = 3257) n/a Negative - Negati ve [facility] URINALYSIS W/O SPECIFIC [id number] 15:45:00* Test Item Value Reference Range Interpretation Comme nts POCT PH U (test code = 3254) n/a 5-8 POCT U LEUK EST (test code = 3263) n/a Negative - Negative POCT U NIT (test code = 3262) n/a Negative - Negati ve POCT U PROT (test code = 3259) negative Negative - Negat mana POCT U GLU (test code = 3256) negative Negative - Negati ve POCT U KETONE (test code = 3258) n/a Negative - Neg ative POCT U BLD (test code = 3257) n/a Negative - Negati ve [facility] URINALYSIS W/O SPECIFIC [id number] 19:44:00* Test Item Value Reference Range Interpretation Comme nts POCT PH U (test code = 3254) n/a 5-8 POCT U LEUK EST (test code = 3263) n/a Negative - Negative POCT U NIT (test code = 3262) n/a Negative - Negati ve POCT U PROT (test code = 3259) negative Negative - Negat mana POCT U GLU (test code = 3256) negative Negative - Negati ve POCT U KETONE (test code = 3258) n/a Negative - Neg ative POCT U BLD (test code = 3257) n/a Negative - [facility]ati ve [facility] [id number] 19:44:00* Test Item Value Reference Range Interpretation Comme nts POCT PREG (test code = 1605) Positive On board controls acceptable with C Line (test code = 3574) Yes POCT PREG LOT # (test code = 3575) POCT PREG TEST DATE ( test code = 3576) [facility] Consult Notes Date/Time Note Provider Source 2024-09-01 23:13:22 Associated Order(s): CONSULT [employer] CONSULT REPORT Date of Service: 09/01/2024 Name: Vianney Anderson #: [id number] Requesting Physician: KERRI Mayer PCP: Fay Cunha CHIEF COMPLAINT: We were asked to see this patient to give opinion regarding Vianney Anderson, 23 year old, with chief complaints of Other (Bleeding from c/s incision ) . HISTORY OF PRESENT ILLNESS: Vianney Anderson is a 23 year old with fluid drainage from the incision.. Pt had a repeat CS on 08/28/[address] Wise. Woke up today with bloody drainage, denies fever or pain. OB History Para Term AB Living 2 2 2 0 0 2 SAB IAB Ectopic Multiple Live Births 0 0 0 0 2 Last menstrual period: Patient's last menstrual period was 11/19/2023. ALLERGIES: Patient has no known allergies. MEDICATIONS: No current facility-administered medications for this encounter. Current Outpatient Medications Medication Sig Dispense Refill acetaminophen 500 mg tablet Take 2 tablets by mouth every 8 (eight) hours as needed for Pain. 42 tablet 0 docusate 100 mg capsule Take 2 capsules by mouth once daily as needed for Constipation. 60 capsule 1 ferrous sulfate 325 mg (65 mg iron) tablet Take 1 tablet by mouth in the morning. 30 tablet 2 gabapentin 300 mg capsule Take 1 capsule by mouth in the morning and 1 capsule at noon and 1 capsule in the evening. 15 capsule 0 ibuprofen 800 mg tablet Take 1 tablet by mouth every 8 (eight) hours as needed (pain). Take with food or milk. 21 tablet 0 oxyCODONE 5 mg immediate release tablet Take 1 tablet by mouth every 6 (six) hours as needed (pain) for up to 7 days. Indications: acute pain 8 tablet 0 vitamin w/FA tablet Take 1 tablet by mouth in the morning. 100 tablet 3 vitamin w/FA tablet Take 1 tablet by mouth in the morning. 100 tablet 3 HISTORY: No past medical history on file. Family History Problem Relation Age of Onset Diabetes Father Genetic Paternal Grandmother Diabetes Maternal Grandmother High cholesterol Father Family Status Relation Name Status Fa (Not Specified) PGMo Alive Mo (Not Specified) MGMo (Not Specified) MGMo Elizconner Anderson (Not Specified) Fa Donaldo Anderson (Not Specified) No partnership data on file Past Surgical History: Procedure Laterality Date SECTION N/A 03/05/2023 Surgeon: Austen Perez MD; Location: [facility] LABOR AND DELIVERY OR LOCATION SECTION N/A 08/28/2024 Surgeon: Roselyn Wise MD; Location: [facility] LABOR AND DELIVERY OR LOCATION COLONOSCOPY June 13, 2022 INSERT CERVICAL DILATOR 03/05/2023 Social History Socioeconomic History Marital status: Single Tobacco Use Smoking status: Never Passive exposure: Never Smokeless tobacco: Never Vaping Use Vaping status: Never Used Substance and Sexual Activity Alcohol use: Never Drug use: Never Sexual activity: Yes Partners: Male control/protection: None Social History Narrative Lives with boyfriend 2 dogs ROS: Constitutional: negative Eyes: negative ENT/Mouth: negative Cardiovascular: negative Respiratory: negative Gastrointestinal: drainage from incision Genitourinary: negative Musculoskeletal: negative Skin/breast: negative Neurological: negative Psychiatric: negative Endocrine: negative Hemat/Lymph: negative Allergic/Immuno: none PHYSICAL EXAM: Vitals: Vitals: 09/01/247 09/01/24 2230 BP: 137/90 131/79 Pulse: 68 51 Resp: 18 16 Temp: 37 ?C (98.6 ?F) TempSrc: Oral SpO2: 99% 98% Weight: 99.8 kg (220 lb) Height: 1.651 m (5' 5") Constitutional: neg Incision/Wound: serous drainage. Wound explored with qtip, fascia intact, minimal seroma noted. No signs of cellulitis. ASSESSMENT/PLAN: Seroma of incision No sign of infection Fascia intact. Dressing applied. Return for office inicsion check in 2 days as scheduled. Open abdominal incision with drainage, initial encounter (primary encounter diagnosis) Plan: CT ABDOMEN PELVIS W CONTRAST, CBC WITH DIFF, BASIC METABOLIC PANEL (NA, K, CL, CO2, GLUCOSE, BUN, CREATININE, CA), CT ABDOMEN PELVIS W CONTRAST, CBC WITH DIFF, BASIC METABOLIC PANEL (NA, K, CL, CO2, GLUCOSE, BUN, CREATININE, CA), iopamidol (ISOVUE 370-500 mL) injection 80 mL Bailey Roe MD [facility] - Health History and Physical Notes Date/Time Note Provider Source 2024-08-28 07:25:14 TRIAGE HISTORY & PHYSICAL IDENTIFYING DATA Vianney Anderson is 23 year old, /White, 39w0d, female with PAULINO 09/04/2024, by Ultrasound. : 2000 Primary Care Physician: Fay Cunha CHIEF COMPLAINT ERLTCS HISTORY OF PRESENT ILLNESS Vianney Anderson is a 23 year old female presents for elective repeat for previous +FM. No VB, LOF, or CTX. No pre-eclampsia sx or other complaints. CARE: OB- Adum See OB summary for details PAST OBSTETRIC HISTORY OB History Para Term AB Living 2 1 1 1 SAB IAB Ectopic Multiple Live Births 0 1 # Outcome Date GA Lbr Lamonte/2nd Weight Sex Type Anes PTL Lv 2 Current 1 Term 03/05/23 39w0d 3080 g M , L Spinal, EPI, Gen N HANH Complications: Non Reassuring Status PAST MEDICAL HISTORY Problem list: Patient Active Problem List Diagnosis Date Noted Surgery, elective 08/28/2024 39 weeks gestation of 07/27/2024 Irregular uterine contractions 07/27/2024 Dehydration during 07/27/2024 High-risk in third trimester 07/01/2024 Previous section complicating 01/22/2024 High-risk in first trimester 01/22/2024 Alpha thalassemia silent carrier 09/28/2022 Obesity (BMI 30-39.9) 07/25/2022 Operations: Past Surgical History: Procedure Laterality Date SECTION N/A 03/05/2023 Surgeon: Austen Perez MD; Location: [facility] LABOR AND DELIVERY OR LOCATION COLONOSCOPY June 13, 2022 INSERT CERVICAL DILATOR 03/05/2023 No past medical history on file. CURRENT HEALTH STATUS Medications: Current Facility-Administered Medications Medication Dose Route Frequency Last Rate Last Admin ceFAZolin (ANCEF) 2,000 mg in NaCl 0.9% (NS) 100 mL MINI-BAG 2,000 mg IV Piggyback O.R. HOLDING ONCE lactated ringers IV infusion 1,000 mL 1,000 mL IV Infusion CONTINUOUS 75 mL/hr at 08/28/24 0658 1,000 mL at 08/28/24 0658 sodium citrate-citric acid (BICITRA) 500-334 mg/5 mL solution 30 mL 30 mL Oral PRE-PROCEDURE ONCE Allergies and drug reactions: Patient has no known allergies. HOME MEDICATIONS Medications Prior to Admission Medication Sig Dispense Refill Last Dose vitamin w/FA tablet Take 1 tablet by mouth in the morning. 100 tablet 3 SOCIAL HISTORY Tobacco History: Social History Tobacco Use Smoking Status Never Passive exposure: Never Smokeless Tobacco Never Drug History: Social History Substance and Sexual Activity Drug Use Never Alcohol History: Social History Substance and Sexual Activity Alcohol Use Never FAMILY HISTORY Family History Problem Relation Age of Onset Diabetes Father Genetic Paternal Grandmother Diabetes Maternal Grandmother High cholesterol Father REVIEW OF SYSTEMS General: negative Constitutional: negative Eyes: negative ENT/Mouth: negative Cardiovascular: negative Respiratory: negative Gastrointestinal:negative Genitourinary: negative Musculoskeletal: negative Skin/breast: negative Neurological: negative Psychiatric: negative Endocrine: negative Hemat/Lymph: negative Allergic/Immuno:none VITAL SIGNS BP: (122-137)/(70-73) Temp: -- Temp source: -- Pulse: [79-85] Resp: [18] SpO2: [99 %-100 %] Height: [167.6 cm (5' 6")] Weight: [100.7 kg (222 lb)] BMI (calculated): [35.83] PHYSICAL EXAMINATIONS Gen: alert and oriented, well appearing, no distress CV: RRR Resp: normal work of breathing Abd: gravid, soft, NTTP Ext: no calf tenderness or edema : Deferred Contractions None REVIEW OF LABORATORY, PATHOLOGY, AND RADIOLOGY DATA Lab results: Type & Screen HIV Hep B Syphilis Chlamydia ABO & RH Date Value Ref Range Status 08/27/2024 A POSITIVE Final No results found for: "HIVMULTIPLEX" No components found for: "HBSHBSAG" No results found for: "SYPIGG" C. trachomatis Nucleic Acid Date Value Ref Range Status 08/12/2024 Negative Negative Final IAT Date Value Ref Range Status 08/27/2024 Negative Final Varicella Rubella Glucose Group B Strep CBC VZV IgG antibody Date Value Ref Range Status 01/22/2024 Positive Negative Final Rubella screen IgG Date Value Ref Range Status 01/22/2024 Positive Negative Final GLUC 1 HR Date Value Ref Range Status 06/13/2024 130 120 - 170 mg/dL Final No results found for: "CGBS" HGB Date Value Ref Range Status 08/27/2024 10.7 (L) 11.6 - 15.0 g/dL Final HCT Date Value Ref Range Status 08/27/2024 33.0 (L) 35.7 - 45.2 % Final PLT Date Value Ref Range Status 08/27/2024 263 166 - 358 10*3/?L Final Placenta Accreta Screening Prior ? : Yes Prior Uterine Surgery?: Yes Placenta low lying/previa in current ? : No Screening outcome: A positive screening outcome indicates a history of prior delivery or prior uterine surgery, AND the presence of either a placenta low lying/previa or ultrasound suspicion of PASD in the current . Negative screening. Active Hospital Problems Diagnosis Date Noted Surgery, elective 08/28/2024 39 weeks gestation of 07/27/2024 High-risk in third trimester 07/01/2024 Resolved Hospital Problems No resolved problems to display. Present on Admission: Surgery, elective 39 weeks gestation of ASSESSMENT AND PLAN Vianney Anderson is a 23 year old at 39w0d who presents for elective repeat section Consent confirmed Patient had initially opted for female sterilization but changed her mind, retracting consent. Roselyn Wise MD [facility] 2024-07-27 21:18:18 TRIAGE HISTORY & PHYSICAL IDENTIFYING DATA Vianney Anderson is 23 year old, /White, 34w3d, female with PAULINO 09/04/2024, by Ultrasound. : 2000 Primary Care Physician: Fay Cunha CHIEF COMPLAINT Contractions HISTORY OF PRESENT ILLNESS Vianney Anderson is a 23 year old female presents with c/o contractions since 0900. Pt states she has only eaten breakfast this morning and drank 3 only bottles of water. She said she vomited X1 and then didn't have an appetite the rest of the day. Pt denies nausea currently. UDIP showed 3+ ketones +FM. No VB, LOF, or CTX. No pre-eclampsia sx or other complaints. CARE: OB: Dr Wise See OB summary for details of PNC PAST OBSTETRIC HISTORY OB History Para Term AB Living 2 1 1 1 SAB IAB Ectopic Multiple Live Births 0 1 # Outcome Date GA Lbr Lamonte/2nd Weight Sex Delivery Anes PTL Lv 2 Current 1 Term 03/05/23 39w0d 3080 g M , L Spinal, EPI, Gen N HANH Complications: Non Reassuring Status PAST MEDICAL HISTORY Problem list: Patient Active Problem List Diagnosis Date Noted 34 weeks gestation of 07/27/2024 Irregular uterine contractions 07/27/2024 Dehydration during 07/27/2024 High-risk in third trimester 07/01/2024 Previous section complicating 01/22/2024 High-risk in first trimester 01/22/2024 Alpha thalassemia silent carrier 09/28/2022 Obesity (BMI 30-39.9) 07/25/2022 Operations: Past Surgical History: Procedure Laterality Date SECTION N/A 03/05/2023 Surgeon: Austen Perez MD; Location: [facility] LABOR AND DELIVERY OR LOCATION COLONOSCOPY June 13, 2022 INSERT CERVICAL DILATOR 03/05/2023 No past medical history on file. CURRENT HEALTH STATUS Medications: No current facility-administered medications for this encounter. Allergies and drug reactions: Patient has no known allergies. HOME MEDICATIONS Medications Prior to Admission Medication Sig Dispense Refill Last Dose vitamin w/FA tablet Take 1 tablet by mouth in the morning. 100 tablet 3 Taking SOCIAL HISTORY Tobacco History: Social History Tobacco Use Smoking Status Never Passive exposure: Never Smokeless Tobacco Never Drug History: Social History Substance and Sexual Activity Drug Use Never Alcohol History: Social History Substance and Sexual Activity Alcohol Use Never FAMILY HISTORY Family History Problem Relation Age of Onset Diabetes Father Genetic Paternal Grandmother Diabetes Maternal Grandmother High cholesterol Father REVIEW OF SYSTEMS General: negative Constitutional: negative Eyes: negative ENT/Mouth: negative Cardiovascular: negative Respiratory: negative Gastrointestinal:negative Genitourinary: negative Musculoskeletal: negative Skin/breast: negative Neurological: negative Psychiatric: negative Endocrine: negative Hemat/Lymph: negative Allergic/Immuno:none VITAL SIGNS BP: (121-139)/(57-82) Temp: [37.1 ?C (98.7 ?F)] Temp source: Oral (07/27 1653) Pulse: [100-122] Resp: [16] SpO2: [98 %-100 %] Height: [167.6 cm (5' 6")] Weight: [100.2 kg (221 lb)] BMI (calculated): [35.67] PHYSICAL EXAMINATIONS Gen: alert and oriented, well appearing, no distress CV: RRR Resp: normal work of breathing Abd: gravid, soft, NTTP Ext: no calf tenderness or edema : Deferred.. Closed/thick/high by RN examination x 2 Contractions: None. Irritability - SVE: Dilation: Closed / Effacement (%): 0 % / Station: Floating - Mode: [place]: Contractions (number / 10 minute): 0 REVIEW OF LABORATORY, PATHOLOGY, AND RADIOLOGY DATA Lab results: Type & Screen HIV Hep B Syphilis Chlamydia ABO & RH Date Value Ref Range Status 06/13/2024 A POSITIVE Final No results found for: "HIVMULTIPLEX" No components found for: "HBSHBSAG" No results found for: "SYPIGG" C. trachomatis Nucleic Acid Date Value Ref Range Status 01/11/2024 Negative Negative Final IAT Date Value Ref Range Status 06/13/2024 Negative Final Varicella Rubella Glucose Group B Strep CBC VZV IgG antibody Date Value Ref Range Status 01/22/2024 Positive Negative Final Rubella screen IgG Date Value Ref Range Status 01/22/2024 Positive Negative Final GLUC 1 HR Date Value Ref Range Status 06/13/2024 130 120 - 170 mg/dL Final No results found for: "CGBS" HGB Date Value Ref Range Status 06/13/2024 11.1 (L) 11.6 - 15.0 g/dL Final HCT Date Value Ref Range Status 06/13/2024 33.7 (L) 35.7 - 45.2 % Final PLT Date Value Ref Range Status 06/13/2024 247 166 - 358 10*3/?L Final Placenta Accreta Screening Prior ? : Yes Prior Uterine Surgery?: No Placenta low lying/previa in current ? : No Screening outcome: A positive screening outcome indicates a history of prior delivery or prior uterine surgery, AND the presence of either a placenta low lying/previa or ultrasound suspicion of PASD in the current . Negative screening. Active Hospital Problems Diagnosis Date Noted 34 weeks gestation of 07/27/2024 Irregular uterine contractions 07/27/2024 Dehydration during 07/27/2024 Resolved Hospital Problems No resolved problems to display. Present on Admission: 34 weeks gestation of Irregular uterine contractions Dehydration during ASSESSMENT AND PLAN Vianney Anderson is a 23 year old at 34w3d who presents with contractions Contractions - Resolved after IVF hydration and a dose of terbutaline. - Cervix remained closed on repeat examination - Patient was able to tolerate PO - Discharged with PTL precautions and FK's - Keep appointment as scheduled on 07/29 Roselyn Wise MD T [facility] - Health Procedure Notes Date/Time Note Provider Source 2024-08-28 08:05:35 Associated Order(s): Central Neuraxial Block Central Neuraxial Block Date/Time: 08/28/2024 7:43 AM Performed by: Jeffy Mejia CRNA Authorized by: Ade Bustos MD Patient Location: OR End Time: 08/28/2024 7:46 AM Reason for Block: OB request, Patient request and Surgical anesthesia Staff: Anesthesiologist: Ade Bustos MD Resident/DYE PENETRANT TESTING TECHNICIAN: Jeffy Mejia CRNA Performed by: resident/DYE PENETRANT TESTING TECHNICIAN Preanesthetic Checklist: patient identified, IV checked, risks and benefits explained, monitors and equipment checked, timeout performed, pre-op evaluation, surgical consent, site marked, ob/surgical consent approval, ob/surgical consent verified and anesthesia consent Procedure: Type of Neuraxial: Single Shot and Spinal Sterility Prep cap, drape, gloves, hand hygiene and mask Sedation Level no sedation Patient Position: sitting Prep: Betadine and patient draped Monitoring: heart rate, office assistant / EKG, continuous pulse ox, heart rate / toco and NIBP Location: lumbar (1-5) Lumbar: L3-L4 Approach: midline Technique: single shot Guidance with: landmark technique} Epidural/Spinal [place] and/or Catheter: Epidural/Spinal Kit: BBraun Needle Type: Other Needle Gauge: 25 G Needle Length: 3.5 in (8.89 cm) Number of Attempts: 1 Assessment: Sensory Level: above T10 Thoracic: T9 Block Outcome: successful block, patient tolerated procedure well, appropriate sensory block, appropriate motor block and patient comfortable Procedure Assessment: patient tolerated procedure well with no complications Notes: Smooth and atraumatic, (+) Local, (+) STF THCARE SCIENCE SPECIALIST NACR-NURSE FLOOR MECHANIC,CERTIFIED REGISTERED NURSE FLOOR MECHANIC [facility] Notes Date/Time Note Provider Source 2024-09-01 23:09:23 PT D/C home. GCS15, VS stable. Given D/C paperwork. Pt ambulatory at time of discharge. Pt educated on med usage, follow up care, s/s worsening condition, need for hydration. Pt verbalized understanding. Pt ambulated from ED in NAD with significant other. Traore RN [facility] 2024-09-01 22:38:57 Wound care supplies placed in room. Pt changed into gown. [facility] 2024-09-01 20:43:53 Pt arrived ambulatory C/o bleeding from incision (c/s 08/28/24) THCARE SCIENCE SPECIALIST Sarita Turner RN [facility] 2024-08-29 10:53:15 Problem: Pain Goal: Control of pain at or below patient's documented comfort goal 08/29/2024 1053 by Khushbu Martines RN Outcome: Resolved 08/29/2024 08 by Khushbu Martines RN Outcome: Progressing as expected Problem: Falls, Risk of Goal: Absence of falls 08/29/2024 1053 by Khushbu Martines RN Outcome: Resolved 08/29/2024 08 by Khushbu Martines RN Outcome: Progressing as expected Problem: Discharge Planning - Goal: Adequate for discharge 08/29/2024 1053 by Khushbu Martines RN Outcome: Resolved 08/29/2024 08 by Khushbu Martines RN Outcome: Progressing as expected Goal: Mood stable 08/29/2024 1053 by Khushbu Martines RN Outcome: Resolved 08/29/2024 08 by Khushbu Martines RN Outcome: Progressing as expected Problem: Skin integrity Impaired (Risk or Actual) Goal: Wound healing 08/29/2024 1053 by Khushbu Martines RN Outcome: Resolved 08/29/2024 0805 by Khushbu Martines RN Outcome: Progressing as expected Goal: Prevention of new skin breakdown 08/29/2024 1053 by Khushbu Martines RN Outcome: Resolved 08/29/2024 0805 by Khushbu Martines RN Outcome: Progressing as expected Problem: Bleeding, Risk of Goal: Absence of impaired coagulation signs and symptoms 08/29/2024 1053 by Khushbu Martines RN Outcome: Resolved 08/29/2024 0805 by Khushbu Martines RN Outcome: Progressing as expected Goal: Absence of active bleeding 08/29/2024 1053 by Khushbu Martines RN Outcome: Resolved 08/29/2024804 by Khushbu Martines RN Outcome: Progressing as expected Problem: Discharge Planning Goal: Adequate for discharge 08/29/2024 1053 by Khushbu Martines RN Outcome: Resolved 08/29/2024804 by Khushbu Martines RN Outcome: Progressing as expected Goal: Bilirubin within specified parameters 08/29/2024 1053 by Khushbu Martines RN Outcome: Resolved 08/29/2024804 by Khushbu Martines RN Outcome: Progressing as expected Goal: Knowledge of discharge procedure 08/29/2024 1053 by Khushbu Martines RN Outcome: Resolved 08/29/2024804 by Khushbu Martines RN Outcome: Progressing as expected Goal: Knowledge of care 08/29/2024 105 by Khushbu Martines RN Outcome: Resolved 08/29/2024804 by Khushbu Martines RN Outcome: Progressing as expected [facility] 2024-08-29 10:02:35 Images from the original note were not included. This note was copied from a baby's chart. Stopping Breast Milk Production Breast stimulation encourages milk production. The more milk is removed the body responds by making more milk. When the breast stays full it signals the body to stop making milk. Breast fullness and swelling can be painful. This is normal and may last 3- 4 days. Helpful tips to stop breast milk production Do not bind your breast. This can lead to plugged ducts, mastitis, and increased pain. Wear a supportive bra day and night. Nursing pads are helpful for leaking milk. Talk to your provider about over the counter pain relievers such as ibuprofen or acetaminophen to help relieve pain. Ice packs or cold cabbage leaves on the breast can help decrease swelling and pain. Use 3-4 times per day for 15-20 minutes. Drink when you are thirsty. Drinking less fluids does not help and can make you dehydrated. If your breasts become very uncomfortable express just enough milk to reduce the pressure. Call your healthcare provider Call your healthcare provider right away if you have any of the following: A fever or chills Extreme tiredness and body aches, as if you have the flu Burning or pain in one or both breasts Red streaks on a breast Hard or lumpy spots in one or both breasts A feeling of warmth or heat in one or both breasts It can take some women up to 10 days or longer for the breasts to stop making milk. Please contact your primary care provider for questions or concerns. If you have a fever over 101?F (38.3?C), pain and/or redness in a specific area of the breast, feel like you are coming down with the flu, it could be a sign of breast or other infection. It may be temporarily necessary to remove a majority of the milk from the breasts by hand expression or pumping to help the infection clear, along with the use of antibiotics. Contact your primary care provider. Javier JESSICA, RN, IBCLC [facility] Javier Patton RN [facility] 2024-08-29 08:05:50 Problem: Pain Goal: Control of pain at or below patient's documented comfort goal Outcome: Progressing as expected Problem: Falls, Risk of Goal: Absence of falls Outcome: Progressing as expected Problem: Discharge Planning - Goal: Adequate for discharge Outcome: Progressing as expected Goal: Mood stable Outcome: Progressing as expected Problem: Skin integrity Impaired (Risk or Actual) Goal: Wound healing Outcome: Progressing as expected Goal: Prevention of new skin breakdown Outcome: Progressing as expected Problem: Bleeding, Risk of Goal: Absence of impaired coagulation signs and symptoms Outcome: Progressing as expected Goal: Absence of active bleeding Outcome: Progressing as expected Problem: Discharge Planning Goal: Adequate for discharge Outcome: Progressing as expected Goal: Bilirubin within specified parameters Outcome: Progressing as expected Goal: Knowledge of discharge procedure Outcome: Progressing as expected Goal: Knowledge of infant care Outcome: Progressing as expected [facility] 2024-08-28 19:20:13 Problem: Pain Goal: Control of pain at or below patient's documented comfort goal Outcome: Progressing as expected Problem: Falls, Risk of Goal: Absence of falls Outcome: Progressing as expected Problem: Discharge Planning - Goal: Adequate for discharge Outcome: Progressing as expected Goal: Mood stable Outcome: Progressing as expected Problem: Skin integrity Impaired (Risk or Actual) Goal: Wound healing Outcome: Progressing as expected Goal: Prevention of new skin breakdown Outcome: Progressing as expected Problem: Bleeding, Risk of Goal: Absence of impaired coagulation signs and symptoms Outcome: Progressing as expected Goal: Absence of active bleeding Outcome: Progressing as expected Problem: Discharge Planning Goal: Adequate for discharge Outcome: Progressing as expected Goal: Bilirubin within specified parameters Outcome: Progressing as expected Goal: Knowledge of discharge procedure Outcome: Progressing as expected Goal: Knowledge of infant care Outcome: Progressing as expected THCARE SCIENCE SPECIALIST Jae Sheriff RN [facility] 2024-08-28 10:31:47 Patient: Vianney Anderson Procedure Summary Date: 08/28/24 Room / Location: [address] LABOR AND DELIVERY OR LOCATION Anesthesia Start: 739 Anesthesia Stop: 908 Procedure: SECTION (Abdomen) Diagnosis: High-risk in third trimester ( RCS NKA) Surgeons: Roselyn Wise MD Responsible Provider: Ade Bustos MD Anesthesia Type: Spinal ASA Status: 2 Anesthesia Type: Spinal Last vitals BP Temp Pulse Resp SpO2 There were no known notable events for this encounter. Anesthesia Post Evaluation Patient location during evaluation: PACU Patient participation: complete - patient participated Level of consciousness: awake Pain score: 0 Pain management: adequate Airway patency: patent Cardiovascular status: acceptable Respiratory status: acceptable, room air, unassisted and spontaneous ventilation Hydration status: stable Comments: ANESTHESIA FACULTY EPIDURAL POST NOTE Date of service: 08/28/2024 Patient examined, patient awake s/p C SECTION with spinal BP 93/48 | Pulse 59 | Temp 36.6 ?C (97.8 ?F) (Oral) | Resp 20 | Ht 1.676 m (5' 6") | Wt 100.7 kg (222 lb) | LMP 11/19/2023 | SpO2 100% | Unknown | BMI 35.83 kg/m? Block not fully resolved, as expected. Patient participated otherwise. Block resolving appropriately. Patient discharged from PACU according to criteria. Complications: No apparent complications Fall precautions given Ade Bustos MD [facility] AN-ANESTHESIOLOGY ANESTHESIOLOGIST [facility] 2024-08-28 09:26:19 OB Delivery Note Delivery Date: 08/28/2024 Delivery Time: 8:20 AM 08/28/2024 Vianney Anderson 23 year old presents for scheduled repeat section Review the Delivery Report for details. Gestational Age: 39w0d /Para: Labor Complications: None Estimated Blood Loss: 714 cc Delivery Type: , Low Transverse ROM to Delivery Time: (Delivered) Minutes: 0 Sex: female [place] Weight: 3060 g 1 Minute 5 Minute 10 Minute Totals: 8 9 Laz Anderson [[id number]] Delivery Providers Delivering clinician: Roselyn Wise MD Provider Role Faculty Fellow Residents Jamia Moore RN Primary RN Leydi Guardado RN Additional RN Anesthesiologist Faculty Anesthesiologist Resident Kirti Olguin Metal Die Finisher Details Pre-Op Diagnosis: 1. Intrauterine at 39w0d 2. Previous section 3. Declined TOLAC Post-Op Diagnosis: 1. Intrauterine at 39w0d 2. Previous section 3. Declined TOLAC Indications: Previous Procedure: Repeat , Low Transverse via pfannenstiel skin incision Anesthesia: Spinal Findings: Female infant delivered, weighing 3060 g. Normal uterus, tubes, and ovaries.. Minimal pelvic adhesions Informed Consent: The risks, benefits, complications, and alternatives were discussed with the patient. The patient understood that the risks of section include, but are not limited to: injury to nearby structures or organs, infection, blood loss and possible need for transfusion, and potential need for more surgery including hysterectomy. The patient stated understanding and desired to proceed. All questions were answered. The site of surgery was properly noted and marked. The patient was identified as Vianney Anderson and the procedure verified as a delivery. A Time Out was held and the above information confirmed. Procedure Details: The patient was taken to the operating room where Spinal anesthesia was found to be adequate. Antibiotics were given for infection prophylaxis. She was prepped and draped in the normal sterile fashion in the dorsal supine position with leftward tilt. A Pfannenstiel skin incision was made with scalpel along the old incision. The incision was carried down to the fascia with Bovie cauterization. The fascia was incised and extended laterally with Bovie and Drake scissors. The inferior aspect of the fascia was grasped with Med clamps. The underlying rectus muscles were dissected off with Drake scissors. In a similar fashion, the superior aspect of the fascia was elevated with Med clamps, and the rectus muscle was dissected off. The rectus muscles were sharply down the midline down to the level of the pubic symphysis. The peritoneum was identified and entered bluntly. Peritoneal incision was extended superiorly and inferiorly with good visualization of the bladder. The Vish retractor was inserted, vesicouterine peritoneum was identified, and bladder flap created sharply. The lower uterine segment was then incised with a low transverse incision and was extended bluntly. The amniotic sac was ruptured and Clear fluid noted. The was delivered atraumatically using the usual maneuvers. The remainder of the was delivered, the cord clamped and cut, and the baby was handed off to the awaiting nursery staff. The placenta was removed via manual massage. The uterus was cleared of all clots and debris. The hysterotomy was repaired with suture of 0-Vicryl in a running locked fashion. A single hemostatic stitch of 1-Monocryl was placed midline, and good hemostasis observed. The ovaries and tubes appeared normal bilaterally. The Vish was removed. The uterine incision was reinspected and found to be hemostatic. The subfascial spaces were inspected and noted to be hemostatic. The rectus muscles was re-approximated in the midline with mattress sutures of 2-Monocryl.The fascia was then reapproximated with running sutures of 0-Biosyn tied at the midline. The skin was closed with 4-0 Monocryl with subcuticular sutures. Uterotonics: Pitocin 30 units in 500mls of NS Hemostatic Agents:None The patient tolerated the procedure well. Sponge, instrument, and needle counts were correct and the patient was taken to the recovery room in good and stable condition. Roselyn Wise MD THCARE SCIENCE SPECIALIST [facility] 2024-08-28 08:36:19 Problem: Intrapartum process (including labor pain) Goal: Absence of or reduction of complications of labor Outcome: Resolved Goal: Able to cope with pain Outcome: Resolved Goal: Adequate to move to next level of care Outcome: Resolved Goal: Reduction in pain sensation Outcome: Resolved Problem: Pain Goal: Reduction in pain sensation Outcome: Resolved Goal: Control of pain at or below patient's documented comfort goal Outcome: Progressing as expected Problem: Falls, Risk of Goal: Absence of falls Outcome: Progressing as expected Problem: Discharge Planning - Goal: Adequate for discharge Outcome: Progressing as expected Goal: Mood stable Outcome: Progressing as expected Guardado RN [facility] 2024-08-28 06:48:51 Name/ MRN / Age / Gender: Vianney Anderson, [id number] 23 year old female BMI: Estimated body mass index is 35.83 kg/m? as calculated from the following: Height as of this encounter: 1.676 m (5' 6"). Weight as of this encounter: 100.7 kg (222 lb). Allergies: Patient has no known allergies. Last Vitals: BP Readings from Last 1 Encounters: 08/28/24 122/73 Pulse Readings from Last 1 Encounters: 08/28/24 79 SpO2 Readings from Last 1 Encounters: 07/27/24 99% Date of Surgery: 08/28/2024 Surgeon: Roselyn Wise MD Procedure: LABOR CONSULT OR Location: [facility] LABOR AND DELIVERY OR LOCATION Anesthesia Preop Eval (physical exam) Anesthesia Preop: Ltjt-sn-Lorf PONV Risk Factors: female and non-smoker Anesthesia History Anesthesia History Negative Previous Anesthetics/Airways Cardiovascular Negative Cardiac ROS Pulmonary Negative Pulmonary ROS Neuro/Musculoskeletal Negative Neuro/Musculosketal ROS GI/Hepatic Negative GI/Hepatic ROS Hematology Negative Hematology ROS Comments: 08/27/24 12:04 HGB: 10.7 (L) HCT: 33.0 (L) MCV: 78.2 (L) MCH: 25.4 (L) MCHC: 32.4 RDW-SD: 43.6 RDW-CV: 15.6 (H) PLT x10 3 : 263 (L): Data is abnormally low (H): Data is abnormally high Type and Screen Ordered: Yes Patient Accepts Blood Transfusion: Yes Renal Negative Renal ROS Skin (+) Current IV access and 18g Endo/Other Negative 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 Hold on DOS. Phentermine: Alert [facility] anesthesiologist SGLT2 Inhibitors: "gliflozins" to be held for 3 days prior to elective surgeries GLP1 Agonosit: stop 7 days prior to surgery MAC Cases: Continue taking JENNI inhibitors and ARBs ASA Classification ASA: 2 ASA Comments: Previous emergent c/s with epidural that was malfunctioning, had to be put under GA Labs: Chemistry - CBC 08/27/2024 - - - - 5.71 10.7 (L) 263 - - - 33.0 (L) eGFR: - Date: - ANC: 3.78 Date: 08/27/2024 LFTs - Coags AST: - AP: - Prot: - Ca: - PT: - Date: - ALT: - T Leandro: - Alb: - PTT: - Date: - PO4: - Date: - INR: - Date: - Cardiac Endocrine & other pBNP: - Date: - A1C: 5.6 Date: 01/22/2024 Trop I: - Date: - POCT A1C: - Date: - CK: - Date: - TSH: - Date: - CKMB: - Date: - FT4: - Date: - LDL: - Date: - Lact: - Date: - Procal: - Date: - Respiratory -|-|-|-|- D-dimer: - ABG Date: - Date: - Miscellaneous Type and Screen: A POSITIVE Antibody: Negative Date: 08/27/2024 POCT : Positive Date: 01/11/2024 Current Medications: No outpatient medications have been marked as taking for the 08/28/24 encounter (Hospital Encounter). Previous Surgeries: Past Surgical History: Procedure Laterality Date SECTION N/A 03/05/2023 Surgeon: Austen Perez MD; Location: [facility] LABOR AND DELIVERY OR LOCATION COLONOSCOPY June 13, 2022 INSERT CERVICAL DILATOR 03/05/2023 Anesthesia Physical Exam General alert and oriented x 3 Neuro/Psych neurological Dental no notable dental hx Abdominal (+) gravid Airway Mallampati score:II Neck ROM: full Mouth opening:normal Extremity Normal extremity Pulmonary pulmonary exam normal Other Cardiovascular Anesthesia Plan ASA Status: 2 Plan discussed during pre-op evaluation: Spinal Anesthetic plan on DOS: Spinal Plan to include: face mask Anesthesia plan discussed with: patient or digital sales representative Post-Operative Analgesia: routine analgesia & antiemetics Recovery Plan: PACU Additional comments: Date Anesthesia Start: 08/28/2024 Labor Room: [facility] OR Vianney Anderson is a 23 year old female here at 39w0d weeks gestation for c section (previous x 2) BP 137/70 | Pulse 85 | Resp 18 | Ht 1.676 m (5' 6") | Wt 100.7 kg (222 lb) | LMP 11/19/2023 | SpO2 99% | BMI 35.83 kg/m? Heart Rate: I reviewed the preoperative history, labs, medications and pertinent studies and preformed a physical exam preoperatively. The anesthetic plan is spinal. I discussed this anesthetic plan with all of its components at length with the patient, including the risks, benefits, and alternatives. I answered all of their questions and consent, ID, and npo status were verified. The patient agrees with the plan and desires to proceed with the surgery. [facility] 2024-08-28 06:00:00 Problem: Intrapartum process (including labor pain) Goal: Absence of or reduction of complications of labor Outcome: Progressing as expected Goal: Able to cope with pain Outcome: Progressing as expected Goal: Adequate to move to next level of care Outcome: Progressing as expected Goal: Reduction in pain sensation Outcome: Progressing as expected Problem: Pain Goal: Reduction in pain sensation Outcome: Progressing as expected Goal: Control of pain at or below patient's documented comfort goal Outcome: Progressing as expected Problem: Falls, Risk of Goal: Absence of falls Outcome: Progressing as expected [facility] 2024-08-27 12:15:00 Images from the original note were not included. Venipuncture collection performed by clean technique on the left anticubitus. Total of 1 attempts were made. Slight pressure and a bandage/dressing were applied to the site(s). The patient experienced no complications. The following specimens were processed according to instructions and sent to [facility] laboratories per lab order on 08/27/2024: LT BLUE SST 2 RED 1 LAV 2 PPT DK GREEN (LiHep) DK GREEN (SodH) DUNNE DK BLUE (K2) DK BLUE (S) ACD Blood Culture NIPT/NTD Per procedure tomorrow, pt was banded. [id number] [facility] 2024-08-26 13:15:00 Age: [age] year old GA: 38w5d 1. High-risk in third trimester 2. 38 weeks gestation of - POCT Urinalysis w/o Specific [place] 3. Short interval between pregnancies complicating , antepartum, third trimester 4. Previous section complicating Elective RLTCS scheduled on 08/28 Reviewed procedure and expectation Registration paperwork provided RTC in 1 week for incision check Future Appointments In 1 week Nurse, [facility] Special Roselyn Wise MD [facility] 2024-08-19 11:15:00 Age: [age] year old GA: 37w5d 1. High-risk in third trimester 2. 37 weeks gestation of - POCT Urinalysis w/o Specific [place] - Urine Culture; Future - Urine Culture 3. Short interval between pregnancies complicating , antepartum, third trimester 4. Previous section complicating RLTCS scheduled on 08/28 Labor precautions and FKC's reviewed 5. Back pain affecting in third trimester - Denies other possible causes of UTI - Urine Culture BETTY in 1 week or PRN Future Appointments In 1 week Roselyn Wise MD [facility] Roselyn Wise MD T [facility] 2024-08-14 12:22:44 Received fax from [employer]- back Brace/breast pump order Signed and faxed back. SIL WALKER RN 08/14/2024 12:23 PM T [facility] 2024-08-12 11:15:00 Age: [age] year old GA: 36w5d 1. High-risk in third trimester 2. 36 weeks gestation of - POCT Urinalysis w/o Specific [place] - Cbc with Diff; Future - Gc & Chlamydia Amplified Assay; Future - Group B Streptococcus By PCR; Future - Gc & Chlamydia Amplified Assay - Group B Streptococcus By PCR 3. Short interval between pregnancies complicating , antepartum, third trimester - c/ intermittent cramping PTL precautions and FKC's reviewed with patient Monitor for vaginal bleeding, loss of fluid, and/or contractions - Monitor for symptoms of preeclampsia (headache, visual disturbances, epigastric (under right ribs) pain, and increased blood pressure - If there is a perceived decrease in movement, monitor kick counts. Drink glass of water or juice and rest on left side for approximately two hours. If you feel 10 kicks (movements) over a period of two hours, this is normal. If you do not feel the fetus moving, present to OB clinic or antepartum unit at the [facility] 4. Previous section complicating - RLTCS with bilateral salpingectomy ( she is reconsidering the sterilization) on 08/28 BETTY in 1 week or PRN Future Appointments Tomorrow 2, [facility], [facility], [facility] [place] In 1 week Roselyn Wise MD [facility] Special[facility] Roselyn Wise MD [facility] 2024-07-29 09:30:00 Age: [age] year old GA: 34w5d 1. High-risk in third trimester 2. 34 weeks gestation of - Feeling better since her discharge on Sunday PTL precautions and FKC's reviewed with patient Monitor for vaginal bleeding, loss of fluid, and/or contractions - Monitor for symptoms of preeclampsia (headache, visual disturbances, epigastric (under right ribs) pain, and increased blood pressure - If there is a perceived decrease in movement, monitor kick counts. Drink glass of water or juice and rest on left side for approximately two hours. If you feel 10 kicks (movements) over a period of two hours, this is normal. If you do not feel the fetus moving, present to OB clinic or antepartum unit at the [facility] - POCT Urinalysis w/o Specific [place] 3. Short interval between pregnancies complicating , antepartum, third trimester As above 4. Previous section complicating Scheduled for RLTCS with salpingectomy on 08/28. Anterior placenta, low suspicious PAS BETTY in 2 weeks or PRN Future Appointments In 2 weeks Roselyn Wise MD [facility] Special[facility] Roselyn Wise MD [facility] 2024-07-27 16:42:28 34 weeks patient complaining of contractions. Report called to L&D FRANKLYN [place]. T Carey Richmond RN [facility] 2024-07-15 16:00:00 Age: [age] year old GA: 32w5d 1. High-risk in third trimester 2. 32 weeks gestation of - POCT Urinalysis w/o Specific [place] 3. Short interval between pregnancies complicating , antepartum, third trimester PTL precautions and FKC's reviewed with patient Monitor for vaginal bleeding, loss of fluid, and/or contractions - Monitor for symptoms of preeclampsia (headache, visual disturbances, epigastric (under right ribs) pain, and increased blood pressure - If there is a perceived decrease in movement, monitor kick counts. Drink glass of water or juice and rest on left side for approximately two hours. If you feel 10 kicks (movements) over a period of two hours, this is normal. If you do not feel the fetus moving, present to OB clinic or antepartum unit at the [facility] 4. Previous section complicating RLTCS scheduled with salpingectomy on 08/28 5. Need for RSV immunization Explained that RSV is common - up to 68% of infants are infected in Ist year of life and nearly all 97% y 2 years of age. In absence of immunization , 2-3% of young infants will be hospitalized for RSV Discussed RSV vaccination with the patient, benefits (offers immediate protection to the new born and the doesn't get vaccinated ), possible SE also reviewed The vaccination, Abrysvo RSV vaccine is recommended for patients between the gestational age of 32-36 wks within the moth of Jun to Oct - Pt accepted and received - RSV, Bivalent, Protein Subunit RSVpreF, Diluent Reconstituted, 0.5 mL, PF, 60+ (Abrysvo) BETTY in 2 weeks Future Appointments In 2 weeks Roselyn Wise MD [facility] Special[facility] Roselyn Wise MD [facility] 2024-07-01 13:15:00 Age: [age] year old GA: 30w5d 1. High-risk in third trimester 2. 30 weeks gestation of - POCT Urinalysis w/o Specific [place] 3. Short interval between pregnancies complicating , antepartum, third trimester - doing well and has no concerns PTL precautions and FKC's reviewed with patient Monitor for vaginal bleeding, loss of fluid, and/or contractions - Monitor for symptoms of preeclampsia (headache, visual disturbances, epigastric (under right ribs) pain, and increased blood pressure - If there is a perceived decrease in movement, monitor kick counts. Drink glass of water or juice and rest on left side for approximately two hours. If you feel 10 kicks (movements) over a period of two hours, this is normal. If you do not feel the fetus moving, present to OB clinic or antepartum unit at the [facility] 4. Needs flu shot - FLU VACC (), 6 MO-64 YRS, .5ML, IM, TIV (FLUCELVAX) 5. Previous section complicating - Follow scan for PASD- low suspicion. Normal growth and CECY - Will schedule RLTCS at 39wks here at [facility] BETTY in 2 weeks or PRN Future Appointments In 2 weeks Roselyn Wise MD [facility], [facility] Roselyn Wise MD [facility] 2024-07-01 13:15:00 Addended by: PERRI LAYNE MA on: 07/02/2024 08:26 AM Modules accepted: Orders Perri Layne MA [facility] 2024-06-17 13:00:00 Age: [age] year old GA: 28w5d 1. High-risk in third trimester 2. Short interval between pregnancies complicating , antepartum, third trimester - c/ groin pain. Worst with walking. Advised on exercise and stretching PTL precautions and FKC's reviewed with patient Monitor for vaginal bleeding, loss of fluid, and/or contractions - Monitor for symptoms of preeclampsia (headache, visual disturbances, epigastric (under right ribs) pain, and increased blood pressure - If there is a perceived decrease in movement, monitor kick counts. Drink glass of water or juice and rest on left side for approximately two hours. If you feel 10 kicks (movements) over a period of two hours, this is normal. If you do not feel the fetus moving, present to OB clinic or antepartum unit at the [facility] 3. Previous section complicating - Will schedule RLTCS once patient is cleared for PASD 4. 28 weeks gestation of - POCT Urinalysis w/o Specific [place] 5. Need for Tdap vaccination Given today 6. Consultation for female sterilization I discussed the risks, benefits and alternatives of laparoscopic bilateral Tubal Ligation with patent. Risks discussed included but not limited to infection, bleeding, need for transfusion of blood/blood products, injury to vital organs: bladder, bowel with possible further surgery and VTE She understands that the procedure is permanent, although reversal procedures can be preformed, these procedures are usually not successful and are not covered by most insurances.There is also approximately 30% risk of regret and this risk is higher in women who are younger than 30 years of age. We also discussed the failure rate of about about 0.75%, with an increased risk for ectopic should failure of tubal ligation occur. Alternatives discussed include: Oral Contraceptive Agents, Intrauterine Device, Nexplanon, Depo Provera, Ring, Patch, Condoms/foam, vasectomy of partner, or bilateral salpingectomy. Salpingectomy has been shown to decrease risk of ovarian cancer, similar to tubal ligation; however, no tubal reversal will be able to be done in the future and might be able to achieve with in vitro fertilization only. All questions answered, and patient expressed her desire to proceed with bilateral tubal ligation surgery and has opted for bilateral salpingectomy." BETTY in 2 weeks or PRN Roselyn Wise MD T [facility] [employer] 2024-06-13 12:30:00 50 Glucola was given @ 1233. No issues. Pt finished @ 1236. Draw Time @ 0018. Nicci Cheema 06/13/2024 12:36 PM T [facility] [employer] 2024-06-13 12:30:00 Images from the original note were not included. Venipuncture collection performed by clean technique on the left anticubitus. Total of 1 attempts were made. Slight pressure and a bandage/dressing were applied to the site(s). The patient experienced no complications. The following specimens were processed according to instructions and sent to [facility] laboratories per lab order on 06/13/2024: LT BLUE SST 2 RED 1 LAV 2 PPT DK GREEN (LiHep) DK GREEN (SodH) DUNNE DK BLUE (K2) DK BLUE (S) ACD Blood Culture NIPT/NTD [facility] 2024-06-03 13:15:00 Age: [age] year old GA: 26w5d PLAN 1. High-risk in second trimester 2. 26 weeks gestation of 3. Short interval between pregnancies complicating , antepartum, second trimester - No concerns - Considering BTL- briefly discussed. Will discussed further and sign consent next visit if patient is sure - [facility] or [facility] Only - Rpr; Future - Cbc with Diff; Future - Glucose 1 Hour Post Prandial; Future - HIV 1/2 Ag-Ab with Reflex; Future - Workup, Blood Bank; Future - POCT Urinalysis w/o Specific [place] 4. Previous section complicating - Normal follow up anatomy scan - PAS screening scheduled at 32 wks BETTY in 2 weeks or PRN Future Appointments In 2 weeks Roselyn Wise MD [facility], [facility], [facility] In 3 weeks [facility] Delfino Wise MD [facility] 2024-05-27 18:41:42 Arrived on [facility] LDRP unit: Arrived to [facility] Date & Time: 05/27/2024 6:03 PM Oncall Physician: Albert Primary Physician: Frandy CHIEF COMPLAINT: pt sent from the ED due to decreased movement pt states she has only felt baby move today for 3 times. HISTORY OF PRESENT ILLNESS AND/OR COMPLAINT Vianney Anderson is a 23 year old female with G 2 P 1 LAST FOOD INTAKE:1399- LAST DRINK INTAKE: 1399- 05/27/2024 MEDICAL HISTORY No past medical history on file. SURGICAL HISTORY Past Surgical History: Procedure Laterality Date SECTION N/A 03/05/2023 Surgeon: Austen Perez MD; Location: [facility] LABOR AND DELIVERY OR LOCATION COLONOSCOPY June 13, 2022 INSERT CERVICAL DILATOR 03/05/2023 FAMILY HISTORY Family History Problem Relation Age of Onset Diabetes Father Genetic Paternal Grandmother Diabetes Maternal Grandmother High cholesterol Father ALLERGIES: Patient has no known allergies. MEDICATIONS Home Medications: Medications Prior to Admission Medication Sig Dispense Refill Last Dose norgestrel-ethinyl estradioL 0.3-30 mg-mcg per tablet Take 1 tablet by mouth in the morning. 1 Packet 12 Not Taking vitamin w/FA tablet Take 1 tablet by mouth in the morning. 100 tablet 3 Taking HOSPITAL MEDICATIONS No current facility-administered medications for this encounter. Social History Tobacco Use Smoking Status Never Passive exposure: Never Smokeless Tobacco Never Social History Substance and Sexual Activity Alcohol Use Never Social History Substance and Sexual Activity Drug Use Never REVIEW OF SYSTEMS: See Nurses Flowsheets Specimens Obtained: n/a Urine dip: trace of protein SVE: N/a OBIX EFM Strip: Fht's: Cat [place]: 0 BP 117/63 | Pulse 82 | Temp 37.4 ?C (99.3 ?F) (Oral) | Resp 16 | Ht 1.676 m (5' 6") | Wt 100.8 kg (222 lb 3.2 oz) | LMP 11/19/2023 | SpO2 99% | BMI 35.86 kg/m? REVIEW OF LABORATORY, PATHOLOGY, AND RADIOLOGY DATA Lab results: CBC BMP PT/INR WBC (10*3/?L) Date Value 01/22/2024 7.63 No results found for: "NA" No results found for: "PT" RBC (10*6/?L) Date Value 01/22/2024 4.86 No results found for: "K" No results found for: "PTINR" PLT (10*3/?L) Date Value 01/22/2024 350 No results found for: "CA" HGB (g/dL) Date Value 01/22/2024 12.0 No results found for: "CL" aPTT HCT (%) Date Value 01/22/2024 37.3 No results found for: "BUN" No results found for: "APTTPAT" No results found for: "CREAT" No results found for: "GLU" No results found for: "TCO2" Pt has felt baby move 3 times as of 1830. Report given to oncoming RN. Bianca Gil RN [facility] 2024-05-27 18:02:09 Nurse Report Report given to FRANKLYN Allison. Chief complaint reviewed. Court Mccord RN [facility] 2024-05-27 17:58:58 CC: patient presents to the ER with complaints of decreased movement, states she noticed symptoms began yesterday afternoon. Patient states she is 25 and 5 days gestation, denies high risk status, follows Dr. Wise. Awake, alert, oriented, resp reg unlabored, skin warm and dry, color appropriate for race, moves all ext without difficulty, amb without assistance. Appears in no distress. Court Mccord RN [facility] 2024-05-27 13:24:51 Spoke with patient. Patient states she noticed yesterday she has not felt the baby move as much. Patient reports feeling her baby once today. Patient reports drinking a cold soda and focusing on kicks/movements and not feeling any. Patient also reports possibly still having a UTI. Patient advised to be seen in the ER. Patient agreed to plan of care. Patient is not sure if she will be able to leave work. Patient states it might have to be after work. Patient advised to go as soon as she can. Tod Weiss RN 05/27/2024 1:27 PM Tod Weiss RN [facility] 2024-05-19 08:50:43 Patient calling want to discuss medication that was prescribed for her uti by urgent care this weekend. Joanna Nichols [facility] 2024-05-17 12:20:00 Addended by: JAMIA BINGHAM MD on: 05/20/2024 12:32 PM Modules accepted: Orders [facility] 2024-05-06 11:00:00 Age: [age] year old GA: 22w5d 1. High-risk in second trimester 2. 22 weeks gestation of - No concerns - Considering BTL, not entirely sure yet - POCT Urinalysis w/o Specific [place] 3. Previous section complicating - Anterior placenta. PASD screening at 32wks BETTY in 4 weeks with 28 weeks labs Future Appointments In 2 weeks ANG-[facility] ULTRASOUND [facility], [facility] In 4 weeks Roselyn Wise MD [facility], [facility], [facility] In 1 month ANG-M ULTRASOUND [facility], [facility] Delfino Wise MD\\ [facility] 2024-04-08 09:00:00 Age: [age] year old GA: 18w5d 1. High-risk in second trimester 2. 18 weeks gestation of - No concerns - precautions reviewed - POCT Urinalysis w/o Specific [place] 3. Previous section complicating - Wants RLTCS 4. Short interval between pregnancies complicating , antepartum, second trimester - As above Anatomy already scheduled BETTY in 4 weeks or PRN Future Appointments In 1 week PEA-[facility] US ROOM 1 [facility], [place], [facility] [place] In 4 weeks Roselyn Wise MD [facility], [facility] Roselyn Wise MD [facility] 2024-03-18 10:30:00 Images from the original note were not included. Venipuncture collection performed by clean technique on the right anticubitus. Total of 1 attempts were made. Slight pressure and a bandage/dressing were applied to the site(s). The patient experienced no complications. The following specimens were processed according to instructions and sent to [facility] laboratories per lab order on 03/18/2024: LT BLUE SST 1 RED LAV PPT DK GREEN (LiHep) DK GREEN (SodH) DUNNE DK BLUE (K2) DK BLUE (S) ACD Blood Culture NIPT/NTD Pt verified she was 15 weeks & 5 days. [facility] 2024-03-18 10:00:00 Age: [age] year old GA: 15w5d ASSESSMENT: Vianney Anderson is a 23 year old at 15w5d who presents for routine visit. Patient Active Problem List Diagnosis Obesity (BMI 30-39.9) Alpha thalassemia silent carrier Previous section complicating High-risk in first trimester PLAN 1. High-risk in first trimester - CONSULT MATERNAL MEDICINE ULTRASOUND Multiple Gestation: No; Preferred Location: [place] 2. 15 weeks gestation of - POCT Urinalysis w/o Specific [place]- negative protein and glucose - Alpha Fetoprotein-Maternal Ser; Future- future for after 16 weeks - CONSULT MATERNAL MEDICINE ULTRASOUND Multiple Gestation: No; Preferred Location: [place] 3. Obesity (BMI 30-39.9) 4. Alpha thalassemia silent carrier 5. Previous section complicating labor precautions reviewed --All questions answered F/u with Dr. Wise in 4 weeks Morro Christensen DNP, CLINICAL RESEARCH SPECIALIST-BC 42:08 PM T [facility] 2024-03-03 14:43:00 Received Panorama results via fax. Stamped and will be scanned/uploaded into pt's chart. Pt viewed Amanda results via website. SIL WALKER RN 03/03/2024 2:43 PM T [facility] 2024-02-20 09:15:00 Amanda collection only T [facility] 2024-02-19 16:00:00 Age: [age] year old GA: 11w5d 1. High-risk in first trimester 2. 11 weeks gestation of - POCT Urinalysis w/o Specific [place] 3. Short interval between pregnancies affecting in first trimester, antepartum NIPT kit given today For MsAFP and order for anatomy scan next visit 4. Previous section complicating - Optes for RLTCS BETTY in [address] Wise and 8 weeks with Morro Wise MD [facility] 2024-02-19 16:00:00 Addended by: ROSELYN WISE on: 02/19/2024 05:04 PM Modules accepted: Orders [facility] 2024-01-22 14:30:00 Images from the original note were not included. Venipuncture collection performed by clean technique on the left anticubitus. Total of 1 attempts were made. Slight pressure and a bandage/dressing were applied to the site(s). The patient experienced no complications. The following specimens were processed according to instructions and sent to [facility] laboratories per lab order on 01/22/2024 : LT BLUE SST 3 RED 1 LAV 3 PPT DK GREEN (LiHep) DK GREEN (SodH) DUNNE DK BLUE (K2) DK BLUE (S) ACD Blood Culture NIPT/NTD [facility] - Health 2024-01-22 13:15:00 Age: [age] year old GA: 7w5d Vianney Anderson is a 23 year old presents for follow up dating scan. Denies vaginal bleeding, abdominal pain or cramps. In a stable relationship and FOB is involved and supportive. She denies domestic violence/immediate partner violence. Sonogram confirmed an SIUP at 7w5d gestation with an EDC of 09/04/2024 Assessment/Plan High-risk in first trimester (primary encounter diagnosis) Short interval between pregnancies affecting in first trimester, antepartum Discussed do's and don'ts of , safe foods, safe medications. NOB folder given We discussed course, labs, aneuploidy and genetic carrier screening and ultrasounds. Expectations for weight gain this include 15-25 pounds. Exercise in discussed and encouraged. aneuploidy options were reviewed including NIPT: cFDNA test and 2nd trimester QUAD screen. The benefits and short falls of these screening tests were reviewed. Also discussed diagnostic tests: CVS vs amniocentesis. She has opted for NIPT [employer] genetic carrier screening in 2021 was positive Alpha Thalassemia silent carrier. Partner screened negative Reviewed Zika virus precautions .Discussed about COVID-19/flu precautions. Social distancing, frequent hand washings, signs/symptoms for testing and to follow CDC recommendations discussed. Vaccinations in reviewed- Flu, RSV, COVID and Tdap . She received flu shot today I discussed the call schedule and that I deliver here at [facility]. I discussed that I have two partners, Dr. Perez and Dr. Roe and that they may deliver her or take care of her during her . I discussed that at [facility] we do not have a NICU, and that high risk pregnancies or deliveries less than 36 weeks will be transferred to [place]. All questions were answered. NOB labs today precautions reviewed Encouraged to call if have any additional questions or concerns. Plan: POCT Urinalysis w/o Specific [place], ADC or Darcie Only - Rpr, Cbc with Diff, Hcv Antibody, Hepatitis B Surface Antigen, HIV 1/2 Ag-Ab with Reflex, Workup, Blood Bank, Rubella Screen IgG, VZV Antibody Screen, Glycosylated Hemoglobin (A1C) with inconclusive viability, single or unspecified fetus SIUP at 7w5d Plan: OB Ultrasound Transvaginal Previous section complicating - Opted for ERLTCS at 39 wks Alpha thalassemia silent carrier Horizon genetic carrier screening in 2021 was positive Alpha Thalassemia silent carrier. Partner screened negative Needs flu shot Plan: FLU VACC ([id number]), 6 MO-64 YRS, .5ML, IM, QUAD (FLUCELVAX) Return to clinic in 4 weeks fro BETTY or PRN Reviewed patient instructions and provided printed copy. Roselyn Wise MD 01/22/2024 1:27 PM [facility] 2024-01-11 14:00:00 Age: [age] year old GA: Unknown See progress note . [facility] [employer]
--- NOTE | 2025-01-27 15:13 | RAD REPORT ---
EXAM: Abdominal exam Limited ultrasound CLINICAL HISTORY: Abdominal pain COMPARISON: None FINDINGS: Multiple small gallstones. Gallbladder is mildly distended. Gallbladder wall not thickened. Biliary tree normal caliber IMPRESSION: Cholelithiasis with mild gallbladder distention
[2025-01-27 17:22] LABS: Absolute Lymphocytes (CBC) 1.5 K/uL (0.7-4.9); Absolute Monocytes 0.5 K/uL (0.1-1.3); Absolute Neutrophil 8.2 K/uL (1.8-8.0); Basophils % 0.2 % (0-1.3); Eosinophils % 0.2 % (0-4.4); Hematocrit 38.8 % (36.0-45.0); Lymphocytes % 14.6 % (15.3-44.8); MCH 25.3 pg (27.0-35.0); MCHC 33.6 g/dL (32.0-36.0); MCV 75.3 fL (80-100); MPV 8.8 fL (7.6-11.3); Monocytes % 4.7 % (3.3-12.3); Neutrophils % 80.3 % (41.7-73.7); Platelets 347 thou/uL (152-406); RBC Red Blood Cell Count 5.15 M/uL (3.86-4.86); Red Cell Distribution Width 14.2 % (12.1-15.2)
[2025-01-27 17:37] LABS: Specific Gravity > 1.030 (1.005-1.030)
[2025-01-27 17:43] LABS: Specific Gravity > 1.030 (1.005-1.030); Sqamous Epithelial <5 /HPF (None Seen); Urine Bacteria <20 /HPF (<20); Urine Bilirubin NEGATIVE (Negative); Urine Blood Negative (Negative); Urine Clarity Extremely Turbid (Clear); Urine Color Yellow (Yellow); Urine Culture Reflex Order REFLEXED; Urine Glucose NEGATIVE (Negative); Urine Ketones NEGATIVE (Negative); Urine Microscopic Reflex YN ORDER UMIC; Urine Mucus 4+ /HPF (None Seen); Urine Nitrite NEGATIVE (Negative); Urine Protein TRACE (Negative); Urine RBC <5 /HPF (None Seen); Urine Urobilinogen 1+ (Normal); Urine WBC >50 /HPF (<5); Urine pH 5.5 (5.0-7.0)
[2025-01-27 17:53] LABS: Albumin 3.8 g/dL (3.4-5.0); Albumin/Globulin Ratio 0.8 (1.1-1.8); Anion Gap 10.6 mEq/L (5.0-15.0); Bilirubin Total 0.4 mg/dL (0.2-1.0); Globulin 4.6 g/dL (2.3-3.5); Potassium 3.6 mEq/L (3.5-5.1); Protein, Total 8.4 g/dL (6.4-8.2)
--- NOTE | 2025-01-27 17:58 | ER ---
Nurse's Notes [facility] Name: Chayo Jung Age: 24 yrs Sex: Female : 2000 Arrival Date: 01/27/2025 Time: 13:46 Bed 20 Private MD: Diagnosis: Other cholelithiasis without obstruction;UTI/ Urinary tract infection, site not specified Presentation: 01/27 13:48 Chief complaint: Patient states: Sudden onset of epigastric pain that began 15 minutes ss prior to arrival. Coronavirus screen: Client denies travel out of the [place] in the last 14 days. Ebola Screen: Patient denies exposure to infectious person. Patient denies travel to an Ebola-affected area in the 21 days before illness onset. Initial Sepsis Screen: Does the patient meet any 2 criteria? No. Patient's initial sepsis screen is negative. Does the patient have a suspected source of infection? No. Patient's initial sepsis screen is negative. Risk Assessment: Do you want to hurt yourself or someone else? Patient reports no desire to harm self or others. Onset of symptoms was January 27, 2025. Care prior to arrival: Medication(s) given: zofran 4 mg, IV initiated. 20 GA, in the left forearm. 13:48 Acuity: RJ 3 ss 13:48 Method Of Arrival: EMS: [facility] Triage Assessment: 14:47 General: Appears in no apparent distress. Behavior is calm, cooperative, appropriate ap3 for age. Pain: Complains of pain in right upper quadrant and epigastric area Pain currently is 10 out of 10 on a pain scale. Pain began this morning. Neuro: Level of Consciousness is awake, alert, obeys commands, Oriented to person, place, time, situation. Cardiovascular: Patient's skin is warm and dry. Respiratory: Airway is patent Respiratory effort is even, unlabored, Respiratory pattern is regular, symmetrical. GI: Reports upper abdominal pain, nausea. 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 - Infectious Disease History:: Denies. - Social history:: Smoking status: Patient denies any tobacco usage or history of. Screenin:48 Abuse screen: Denies threats or abuse. Nutritional screening: No deficits noted. ap3 Tuberculosis screening: No symptoms or risk factors identified. 18:08 [facility] ED Fall Risk Assessment (Adult) History of falling in the last 3 months, me1 including since admission No falls in past 3 months (0 pts) Confusion or Disorientation No (0 pts) Intoxicated or Sedated No (0 pts) Impaired Gait No (0 pts) Mobility Assist Device Used No (0 pt) Altered Elimination No (0 pt) Score/Fall Risk Level 0 - 2 = Low Risk Maintained a safe environment, Provided non-skid footwear, Hourly rounding (assess needs \T\ fall precautionary measures) done. Assessment: 18:08 General: Appears uncomfortable, well groomed, well developed, well nourished, Behavior me1 is calm, cooperative, appropriate for age, Reports Sudden onset of epigastric pain that began 15 minutes prior to arrival. Pain: Complains of pain in right upper quadrant and epigastric area Pain does not radiate. Pain currently is 6 out of 10 on a pain scale. Quality of pain is described as sharp, squeezing, Pain began suddenly, Is continuous. Neuro: Level of Consciousness is awake, alert, obeys commands, Oriented to person, place, time, situation, Appropriate for age. Cardiovascular: Patient's skin is warm and dry. Respiratory: Airway is patent Respiratory effort is even, unlabored, Respiratory pattern is regular, symmetrical. GI: Abdomen is non-distended, Bowel sounds present X 4 quads. Reports upper abdominal pain, nausea. : No signs and/or symptoms were reported regarding the genitourinary system. EENT: No signs and/or symptoms were reported regarding the EENT system. Derm: Skin is intact, is healthy with good turgor, Skin is pink, warm \T\ dry. Musculoskeletal: No signs and/or symptoms reported regarding the musculoskeletal system. Vital Signs: 14:46 Pulse 78; Resp 17; Temp 98.7; Pulse Ox 98% ; Weight 90.72 kg; Height 5 ft. 5 in. ; Pain ap3 10/10; 14:48 BP 129 / 70; ap3 18:10 BP 116 / 75; Pulse 72; Resp 16; Temp 98.3; Pulse Ox 98% ; me1 14:46 Body Mass Index 33.28 (90.72 kg, 165.1 cm) ap3 14:46 Pain Scale: Adult ap3 ED Course: 13:48 Patient arrived in ED. ss 13:48 E[facility] Price [facility]-C [facility] kb 13:48 Michael Tiwari MD is Attending Physician. kb 13:49 Triage completed. ss 14:03 Abdomen Limited US In Process Unspecified. EDMS 14:48 Arm band placed on right wrist. ap3 17:15 CBC with Diff Sent. bc6 17:15 CMP Sent. bc6 17:15 Lipase Sent. bc6 17:15 Initial lab(s) drawn, by me, sent to lab. Inserted saline lock: 20 gauge in right bc6 antecubital area, using aseptic technique. Blood collected. Flushed with 10 mL NS. 17:56 Sofy Hopper, RN is Primary Nurse. me1 18:08 Patient has correct armband on for positive identification. Bed in low position. Call me1 light in reach. Side rails up X 1. Provided Education on: POC. Verbalized understanding.. Client placed on continuous cardiac and pulse oximetry monitoring. NIBP monitoring applied. Pulse ox on. NIBP on. 18:08 No provider procedures requiring assistance completed. me1 18:31 IV discontinued, intact, bleeding controlled, No redness/swelling at site. Pressure me1 dressing applied. Administered Medications: 18:05 Drug: Famotidine IVP 20 mg IVP once; dilute with 10 mL 0.9% NaCl; give over 2 minutes me1 Route: IVP; Site: right antecubital; 18:31 Follow up: Response: No adverse reaction me1 18:05 Not Given (D/C per verbal order from STEPH Torres): ns 0.9% 1000 ml IV at 1 bolus me1 Per protocol; to be given as a bolus over 60 minutes 18:07 Drug: TORadol - Ketorolac IVP 15 mg IVP once Route: IVP; Site: right antecubital; me1 18:31 Follow up: Response: No adverse reaction; Pain is decreased me1 Medication: 18:08 VIS not applicable for this client. me1 Outcome: 17:57 Discharge ordered by MD. calle 18:31 Discharged to home ambulatory, with significant other, me1 18:31 Condition: stable 18:31 Discharge instructions given to patient, significant other, Instructed on discharge instructions, follow up and referral plans. medication usage, Demonstrated understanding of instructions, follow-up care, medications, Prescriptions given X 3, 18:48 Patient left the ED. me1 Signatures: Dispatcher [employer] EDAL Erika Price, ANTIQUE FURNITURE REPRODUCER-C ANTIQUE FURNITURE REPRODUCER-CkMarizol Stephenson, FRANKLYN RN Jamia Silva RN RN ap3 Tereza Parry 6 Sofy Hopper RN RN me1 Corrections: (The following items were deleted from the chart) 18:08 13:48 Chief complaint: Patient states: Sudden onset of epigastric pain that began 15 me1 minutes prior to arrival. 18:11 18:10 BP 116 / 75; Pulse 72bpm; Resp 16bpm; Pulse Ox 98%; me1 me1
--- NOTE | 2025-01-27 17:58 | EDPHYS ---
Physician Documentation [facility] Name: Chayo Jung Age: 24 yrs Sex: Female : 2000 Arrival Date: 01/27/2025 Time: 13:46 Bed 20 Private MD: ED Physician Michael Tiwari HPI: 01/27 13:49 This 24 yrs old Female presents to ER via EMS with complaints of Epigastric kb Pain. 13:49 Patient is a 24-year-old female who presents for epigastric pain that started just kb prior to arrival. States she was in the restroom when the pain presented, sudden in onset. Pain is persistent with waves of sharp pain. Reports nausea. Denies vomiting, diarrhea, fever.. 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 - Infectious Disease History:: Denies. - Social history:: Smoking status: Patient denies any tobacco usage or history of. ROS: 13:49 Constitutional: As per HPI kb Exam: 13:49 Constitutional: This is a well developed, well nourished patient who is awake, alert, kb and in no acute distress. Head/Face: Normocephalic, atraumatic. ENT: Moist Mucous membranes Cardiovascular: Regular rate Respiratory: Respirations even and unlabored. No increased work of breathing. Talking in full sentences Skin: Warm, dry with normal turgor. Normal color. MS/ Extremity: Pulses equal, no cyanosis. Neurovascular intact. Full, normal range of motion. Neuro: Awake and alert, GCS 15, oriented to person, place, time, and situation. 13:49 Abdomen/GI: Inspection: abdomen appears normal, Bowel sounds: normal, Palpation: soft, in all quadrants, moderate abdominal tenderness, in the epigastric area and right upper quadrant, Vital Signs: 14:46 Pulse 78; Resp 17; Temp 98.7; Pulse Ox 98% ; Weight 90.72 kg; Height 5 ft. 5 in. ; Pain ap3 10/10; 14:48 BP 129 / 70; ap3 18:10 BP 116 / 75; Pulse 72; Resp 16; Temp 98.3; Pulse Ox 98% ; me1 14:46 Body Mass Index 33.28 (90.72 kg, 165.1 cm) ap3 14:46 Pain Scale: Adult ap3 MDM: 13:48 Medical Screening Exam initiated kb 13:49 Data reviewed: vital signs, nurses notes. kb 17:56 Differential diagnosis: cholecystitis, Cholelithiasis, gastroesophageal reflux disease, kb non-specific abd pain. Historians other than the Patient: EMS: [facility]. Counseling: I had a detailed discussion with the patient and/or guardian regarding the historical points, exam findings, and any diagnostic results supporting the discharge/admit diagnosis, lab results, radiology results, the need for outpatient follow up, a general surgeon, to return to the emergency department if symptoms worsen or persist or if there are any questions or concerns that arise at home. 01/27 13:48 Order name: CBC with Diff; Complete Time: 17:32 kb 01/27 13:48 Order name: CMP; Complete Time: 17:56 kb 01/27 13:48 Order name: Lipase; Complete Time: 17:56 kb 01/27 13:48 Order name: Test, Urine; Complete Time: 17:49 kb 01/27 13:48 Order name: Urinalysis w/ reflexes; Complete Time: 17:49 kb 01/27 17:47 Order name: Urine Culture EDSD 01/27 13:48 Order name: Abdomen Limited US; Complete Time: 15:21 kb 01/27 13:48 Order name: IV Saline Lock; Complete Time: 17:15 kb 01/27 13:48 Order name: Labs collected and sent; Complete Time: 17:15 kb Administered Medications: 18:05 Drug: Famotidine IVP 20 mg IVP once; dilute with 10 mL 0.9% NaCl; give over 2 minutes me1 Route: IVP; Site: right antecubital; 18:31 Follow up: Response: No adverse reaction me1 18:05 Not Given (D/C per verbal order from STEPH Torres): ns 0.9% 1000 ml IV at 1 bolus me1 Per protocol; to be given as a bolus over 60 minutes 18:07 Drug: TORadol - Ketorolac IVP 15 mg IVP once Route: IVP; Site: right antecubital; me1 18:31 Follow up: Response: No adverse reaction; Pain is decreased me1 Disposition Summary: 01/27/25 17:57 Discharge Ordered Notes: Location: Home kb Condition: Stable kb Diagnosis - Other cholelithiasis without obstruction kb - UTI/ Urinary tract infection, site not specified kb Followup: kb - With: Emergency Department - When: As needed - Reason: Worsening of condition Followup: kb - With: Private Physician - When: 2 - 3 days - Reason: Recheck today's complaints, Continuance of care, Re-evaluation by your physician Discharge Instructions: - Discharge Summary Sheet kb - Cholelithiasis, [id number] kb - Urinary Tract Infection, Adult, [id number] kb Forms: - Medication Reconciliation Form kb - Antibiotic Education kb - Prescription Opioid Use kb - Patient Portal Instructions kb - Leadership Thank You Letter kb - Family Work Release me1 Prescriptions: - Zofran 4 mg Oral tablet - take 1 tablet ORAL route every 6 hours As needed; 12 tablet; Refills: 0, kb Product Selection Permitted - Macrobid 100 mg Oral Capsule - take 1 capsule ORAL route every 12 hours for 10 days; 20 capsule; Refills: 0, kb Product Selection Permitted - dicyclomine 20 mg Oral tablet - take 1 tablet ORAL route 4 times per day As needed; 20 tablet; Refills: 0, kb Product Selection Permitted Signatures: Dispatcher [employer] Erika Mariee FNP-C FNP-Ckb Prokisch, Amanda RN RN ap3 Sofy Hopper RN RN me1
[2025-01-27] MEDS ORDERED: FAMOTIDINE 20 MG/2 ML VIAL IV ONE (18:03)
[2025-01-27] MEDS ORDERED: KETOROLAC 30 MG/ML INJ ONE (18:03)
[2025-01-27 19:35] VITALS: O2SAT 98
[2025-01-27 19:37] VITALS: BP 116/75; TEMP 98.3
== END 2025-01-27 18:48 | disposition home or self-care (01) ==
LOC: ER 13:46
DX: K80.80 Other cholelithiasis without obstruction (principal); N39.0 Urinary tract infection, site not specified
CPT/HCPCS: 36415; 76705; 80053; 81001; 81025; 83690; 85025; 87077; 87086; 87088; 87186; 96374; 96375; 99284

== ENCOUNTER 2025-02-23 18:17 | Emergency (ER) | payer OTHER ==
[2025-02-23] MEDS ORDERED: ONDANSETRON 4 MG/2 ML VIAL ONE (19:02)
[2025-02-23] MEDS ORDERED: KETOROLAC 30 MG/ML INJ ONE (19:02)
[2025-02-23] MEDS ORDERED: NA CHLORIDE 0.9% 1,000 ML ONE (19:02)
[2025-02-23 19:09] LABS: Absolute Eosinophils 0.1 K/uL (0-0.5); Absolute Lymphocytes (CBC) 1.5 K/uL (0.7-4.9); Absolute Monocytes 0.4 K/uL (0.1-1.3); Absolute Neutrophil 4.3 K/uL (1.8-8.0); Basophils % 0.4 % (0-1.3); Hematocrit 39.8 % (36.0-45.0); Hemoglobin 13.3 g/dL (12.0-15.0); Lymphocytes % 24.3 % (15.3-44.8); MCH 24.8 pg (27.0-35.0); MCHC 33.5 g/dL (32.0-36.0); MPV 8.4 fL (7.6-11.3); Monocytes % 5.7 % (3.3-12.3); Neutrophils % 68.6 % (41.7-73.7); Nucleated Red Blood Cells % 0.1 % (0-0); Platelets 311 thou/uL (152-406); RBC Red Blood Cell Count 5.37 M/uL (3.86-4.86); Red Cell Distribution Width 15.1 % (12.1-15.2)
[2025-02-23 19:21] LABS: Specific Gravity 1.009 (1.005-1.030)
[2025-02-23 19:30] LABS: Albumin 4.2 g/dL (3.4-5.0); Albumin/Globulin Ratio 0.9 (1.1-1.8); Anion Gap 10.5 mEq/L (5.0-15.0); Bilirubin Total 2.7 mg/dL (0.2-1.0); Globulin 4.5 g/dL (2.3-3.5); Potassium 3.5 mEq/L (3.5-5.1); Protein, Total 8.7 g/dL (6.4-8.2)
--- NOTE | 2025-02-23 20:30 | RAD REPORT ---
EXAMINATION: CT ABDOMEN AND PELVIS WITH CONTRAST CLINICAL INDICATION: Abdominal pain TECHNIQUE: CT abdomen and pelvis was performed, after the administration of 100 cc Isovue-300.. Sagit hussain and coronal reconstructions were obtained. One or more of the following dose reduction techniques were used: Automated exposure control, adjustment of the mA and kV according to patient si ze, and iterative reconstruction. Unless otherwise specified, incidental findings do not require dedicated imaging follow-up. [id number]. Oral contrast was not given which limits evaluation of bowel and appendix. COMPARISON: .None FINDINGS: Cholecystectomy. No fluid collection within the gallbladder fossa or surrounding the liver. Liver, spleen, pancreas, adrenals and kidneys appear unremarkable No evidence of diverticulitis. Normal appendix. No adnexal mass Moderate amount of stool within the transverse and ascending colon. : IMPRESSION: Moderate amount of stool within the transverse and ascending colon.
--- NOTE | 2025-02-23 21:39 | EDPHYS ---
Physician Documentation [facility] Name: Chayo Jung Age: 24 yrs Sex: Female : 2000 Arrival Date: 02/23/2025 Time: 18:17 Bed 9 Private MD: ED Physician Bipin Kowalski HPI: 02/23 18:28 This 24 yrs old Female presents to ER via Ambulatory with complaints of Chest kb Pain, Shortness Of Breath. 18:28 Pt is a 24 year old female who presents for upper abd pain, nausea and vomiting that kb started 5 days ago. States she had her gallbladder removed [address] Sims at [place]. Denies fever. States she had a follow up with Dr Sims today and was told the symptoms were due to gastritis, but the pain has gotten worse. Historical: - Allergies: 18:28 No Known Allergies; jl7 - Home Meds: 18:28 None [Active]; jl7 - PMHx: 18:28 None; jl7 - PSHx: 18:28 knee surgery; Tonsillectomy; Cholecystectomy; jl7 - Immunization history:: Adult Immunizations unknown. - Infectious Disease History:: Denies. - Social history:: Smoking status: Patient denies any tobacco usage or history of. ROS: 18:27 Constitutional: As per HPI kb Exam: 18:27 Constitutional: This is a well developed, well nourished patient who is awake, alert, kb and in no acute distress. Head/Face: Normocephalic, atraumatic. ENT: Moist Mucous membranes Cardiovascular: Regular rate Respiratory: Respirations even and unlabored. No increased work of breathing. Talking in full sentences Skin: Warm, dry with normal turgor. Normal color. MS/ Extremity: Pulses equal, no cyanosis. Neurovascular intact. Full, normal range of motion. Neuro: Awake and alert, GCS 15, oriented to person, place, time, and situation. 18:27 Abdomen/GI: Inspection: surgical incisions without erythema, warmth, drainage, swelling, Bowel sounds: normal, Palpation: moderate abdominal tenderness, in the right upper quadrant, Vital Signs: 18:26 BP 107 / 90; Pulse 73; Resp 17; Temp 97; Pulse Ox 97% ; Weight 89.81 kg; Height 5 ft. 5 jl7 in. ; Pain 10/10; 21:00 BP 130 / 73; Pulse 78; Resp 17; Pulse Ox 98% on R/A; dd2 22:00 BP 123 / 77; Pulse 76; Resp 16; Pulse Ox 99% on R/A; dd2 22:45 BP 126 / 75; Pulse 79; Resp 16; Pulse Ox 99% on R/A; dd2 18:26 Body Mass Index 32.95 (89.81 kg, 165.1 cm) 7 18:26 Pain Scale: Adult jl7 [place] Coma Score: 19:05 Eye Response: spontaneous(4). Motor Response: obeys commands(6). Verbal Response: dd2 oriented(5). Total: 15. MDM: 18:19 Medical Screening Exam initiated 18:28 Data reviewed: vital signs, nurses notes. 21:09 Management of patient was discussed with the following: Flare Worker: Dr Sims recommends pt have ERCP. No GI risk control field representative at this facility to perform this test so transfer initiated. . 21:37 Differential diagnosis: postop infection, pancreatitis, stone in CBD. Consideration of Admission/Observation Escalation of care including admission/observation considered. pt will be transferred for GI. Counseling: I had a detailed discussion with the patient and/or guardian regarding the historical points, exam findings, and any diagnostic results supporting the discharge/admit diagnosis, lab results, radiology results, the need to transfer to another facility, [facility] does not immediately have the required specialist. 22:03 Management of patient was discussed with the following: Dr Talavera, hospitalist at [facility], accepts pt for transfer. 02/23 18:26 Order name: CBC with Diff; Complete Time: 19:22 kb 02/23 18:26 Order name: CMP; Complete Time: 19:30 kb 02/23 18:26 Order name: Lipase; Complete Time: 19:30 kb 02/23 18:26 Order name: Test, Urine; Complete Time: 19:22 kb 02/23 18:26 Order name: CT Abd/Pelvis - IV Contrast Only; Complete Time: 20:36 kb 02/23 18:26 Order name: IV Saline Lock; Complete Time: 19:03 kb 02/23 18:26 Order name: Labs collected and sent; Complete Time: 19:04 kb Administered Medications: 19:12 Drug: NS 0.9% IV 1000 ml IV at 1 bolus Per protocol; to be given as a bolus over 60 dd2 minutes Route: IV; Rate: 1 bolus; Site: right antecubital; 19:27 Follow up: Response: No adverse reaction dd2 20:15 Follow up: IV Status: Completed infusion; IV Intake: 1000ml dd2 19:13 Drug: Ondansetron IVP 4 mg IVP once; over 2 minutes Route: IVP; Site: right antecubital;dd2 19:28 Follow up: Response: No adverse reaction dd2 19:35 Drug: TORadol - Ketorolac IVP 15 mg IVP once Route: IVP; Site: right antecubital; dd2 19:50 Follow up: Response: No adverse reaction dd2 Disposition Summary: 02/23/25 21:38 Transfer Ordered Notes: Transfer Location: [facility] kb Reason: Higher level of care kb Condition: Stable kb Problem: new kb Symptoms: are unchanged kb Accepting Physician: Dr Talavera(02/23/25 23:13) dd2 Diagnosis - Upper abdominal pain, unspecified kb - Abnormal results of liver function studies kb Forms: - Medication Reconciliation Form kb - SBAR form kb Signatures: Dispatcher [employer] EDErika Candelaria, PERSONAL LINES ACCOUNT EXECUTIVE-C PERSONAL LINES ACCOUNT EXECUTIVE-Gustavo Jones RN RN jl7 MYRANDA HAY RN RN dd2 Corrections: (The following items were deleted from the chart) 18:27 18:27 Abdomen Pelvis W Con+CT.RAD.BRZ ordered. EDMS EDMS 22:04 21:38 Dr alva calle 23:13 22:04 Dr Ilan calle dd2
--- NOTE | 2025-02-23 21:39 | ER ---
Nurse's Notes [facility] Name: Chayo Jung Age: 24 yrs Sex: Female : 2000 Arrival Date: 02/23/2025 Time: 18:17 Bed 9 Private MD: Diagnosis: Upper abdominal pain, unspecified;Abnormal results of liver function studies Presentation: 02/23 18:26 Chief complaint: Patient states: Gallbladder removed on 02/16/25, epigastric pain, N/V jl7 since 02/19/25. Coronavirus screen: At this time, the client does not indicate any symptoms associated with coronavirus-19. Ebola Screen: No symptoms or risks identified at this time. Initial Sepsis Screen: Does the patient meet any 2 criteria? No. Patient's initial sepsis screen is negative. Does the patient have a suspected source of infection? No. Patient's initial sepsis screen is negative. Risk Assessment: Do you want to hurt yourself or someone else? Patient reports no desire to harm self or others. Onset of symptoms was February 19, 2025. 18:26 Method Of Arrival: Ambulatory [facility] 18:26 Acuity: RJ 3 jl7 Triage Assessment: 18:28 General: Appears in no apparent distress. uncomfortable, Behavior is calm, cooperative, jl7 appropriate for age. Pain: Complains of pain in epigastric area Pain currently is 10 out of 10 on a pain scale. Cardiovascular: Patient's skin is warm and dry. Historical: - Allergies: 18:28 No Known Allergies; jl7 - Home Meds: 18:28 None [Active]; jl7 - PMHx: 18:28 None; jl7 - PSHx: 18:28 knee surgery; Tonsillectomy; Cholecystectomy; jl7 - Immunization history:: Adult Immunizations unknown. - Infectious Disease History:: Denies. - Social history:: Smoking status: Patient denies any tobacco usage or history of. Screenin:05 [facility] ED Fall Risk Assessment (Adult) History of falling in the last 3 months, dd2 including since admission No falls in past 3 months (0 pts) Confusion or Disorientation No (0 pts) Intoxicated or Sedated No (0 pts) Impaired Gait No (0 pts) Mobility Assist Device Used No (0 pt) Altered Elimination No (0 pt) Score/Fall Risk Level 0 - 2 = Low Risk Oriented to surroundings, Maintained a safe environment, Educated pt \T\ family on fall prevention, incl call for assistance when getting out of bed, Assessed \T\ reinforced patient's understanding of fall precautions, Hourly rounding (assess needs \T\ fall precautionary measures) done. Abuse screen: Denies threats or abuse. Denies injuries from another. Nutritional screening: No deficits noted. Tuberculosis screening: No symptoms or risk factors identified. Assessment: 18:40 General: Appears in no apparent distress. uncomfortable, Behavior is cooperative, dd2 appropriate for age, anxious. Pain: Complains of pain in epigastric area and right upper quadrant Pain does not radiate. Pain currently is 10 out of 10 on a pain scale. Pain began 2-3 days ago. Neuro: No deficits noted. [place] Agitation-Sedation Scale (RASS): 0 - Alert and Calm Level of Consciousness is awake, alert, obeys commands, Oriented to person, place, time, situation, Appropriate for age. Cardiovascular: Reports chest pain, nausea, Heart tones S1 S2 present JVD is absent Patient's skin is warm and dry. Respiratory: Reports pain with respiration Pain is 10 out of 10 on a pain scale. Airway is patent Respiratory effort is even, unlabored, Respiratory pattern is regular, symmetrical. GI: Abdomen is non-distended, Bowel sounds present X 4 quads. Abd is soft X 4 quads Abdomen is tender to palpation in right upper quadrant Reports upper abdominal pain, epigastric pain, nausea. : No deficits noted. No signs and/or symptoms were reported regarding the genitourinary system. EENT: No deficits noted. No signs and/or symptoms were reported regarding the EENT system. Derm: 3 HEALING INCISIONS TO ABD. Musculoskeletal: No deficits noted. No signs and/or symptoms reported regarding the musculoskeletal system. Circulation, motion, and sensation intact. Range of motion: intact in all extremities. 21:15 Reassessment: Patient is alert, oriented x 3, equal unlabored respirations, skin dd2 warm/dry/pink. Patient states feeling better. Patient states symptoms have improved. 22:21 Reassessment: ATTEMPTED TO CALL REPORT, WAS ADVISED TO CALL BACK IN 15 MINS. REPORTED dd2 TO STOCKBROKERFRANKLYN TURNER. 22:52 Reassessment: 2ND ATTEMPT TO CALL REPORT. PLACED ON HOLD X 8 MINS, NO ANSWER FROM RN. dd2 Vital Signs: 18:26 BP 107 / 90; Pulse 73; Resp 17; Temp 97; Pulse Ox 97% ; Weight 89.81 kg; Height 5 ft. 5 jl7 in. ; Pain 10/10; 21:00 BP 130 / 73; Pulse 78; Resp 17; Pulse Ox 98% on R/A; dd2 22:00 BP 123 / 77; Pulse 76; Resp 16; Pulse Ox 99% on R/A; dd2 22:45 BP 126 / 75; Pulse 79; Resp 16; Pulse Ox 99% on R/A; dd2 18:26 Body Mass Index 32.95 (89.81 kg, 165.1 cm) jl7 18:26 Pain Scale: Adult jl7 [place] Coma Score: 19:05 Eye Response: spontaneous(4). Motor Response: obeys commands(6). Verbal Response: dd2 oriented(5). Total: 15. ED Course: 18:19 Patient arrived in ED. im 18:19 E[facility] FNP-C [facility]. kb 18:19 Bipin Kowalski MD is Attending Physician. kb 18:28 Triage completed. jl7 18:28 Arm band placed on right wrist. jl7 18:29 Radiology exam delayed due to lab results not completed at this time. (HCG) jc4 (BUN/Creatinine) test not completed at this time. IV insertion attempt and/or patient not having appropriate IV at this time. 19:04 No provider procedures requiring assistance completed. Initial lab(s) drawn, by ED dd2 staff, sent to lab. Inserted saline lock: 22 gauge in right antecubital area, using aseptic technique. Blood collected. Flushed with 10 mL NS. Patient maintains SpO2 saturation greater than 95% on room air. 19:05 Patient has correct armband on for positive identification. Placed in gown. Bed in low dd2 position. Call light in reach. Side rails up X 1. Client placed on continuous cardiac and pulse oximetry monitoring. NIBP monitoring applied. presidential support specialist on. Door closed. Noise minimized. Warm blanket given. Pillow given. Verbal reassurance given. 19:12 MYRANDA HAY, RN is Primary Nurse. dd2 20:23 CT Abd/Pelvis - IV Contrast Only In Process Unspecified. EDMS 21:20 called [facility] to initiate transport spoke with renny. vk 22:00 DOC consult transferred to KERRI Price. vk 22:25 Per transfer center patient was accepted to [facility] C Per Zohra ESTES, TCC \T\[address] lesly Talavera \T\2203 to 1611 report # [id number]. 23:02 initiated transport with [place] spoke with Dariana, patient was accepted advised vk 15-25 mins Eta. 23:06 Provided Education on: transfer education. dd2 23:06 Patient transferred, IV remains in place. dd2 Administered Medications: 19:12 Drug: NS 0.9% IV 1000 ml IV at 1 bolus Per protocol; to be given as a bolus over 60 dd2 minutes Route: IV; Rate: 1 bolus; Site: right antecubital; 19:27 Follow up: Response: No adverse reaction dd2 20:15 Follow up: IV Status: Completed infusion; IV Intake: 1000ml dd2 19:13 Drug: Ondansetron IVP 4 mg IVP once; over 2 minutes Route: IVP; Site: right antecubital;dd2 19:28 Follow up: Response: No adverse reaction dd2 19:35 Drug: TORadol - Ketorolac IVP 15 mg IVP once Route: IVP; Site: right antecubital; dd2 19:50 Follow up: Response: No adverse reaction dd2 Medication: 19:05 VIS not applicable for this client. dd2 Intake: 20:15 IV: 1000ml; Total: 1000ml. dd2 Outcome: 21:38 ER care complete, transfer ordered by MD. calle 23:06 Transferred by ground EMS to [facility], Transfer form completed. dd2 23:06 Condition: stable 23:06 Instructed on the need for transfer, Demonstrated understanding of instructions, 23:13 Patient left the ED. dd2 Signatures: Dispatcher [employer] EDMS Erika Price, REYMUNDOC DELI DEPARTMENT MANAGER-Gustavo Jones RN RN jl7 Grecia Guillaume Vivian vk Crisp, Justin jc4 MYRANDA HAY RN RN dd2 Corrections: (The following items were deleted from the chart) 22:47 18:40 GI: Abdomen is non-distended, Bowel sounds present X 4 quads. Abd is soft X 4 dd2 quads Abdomen is tender to palpation in epigastric area Reports upper abdominal pain, epigastric pain, nausea, dd2
[2025-02-24 06:16] VITALS: TEMP 97
[2025-02-24 06:21] VITALS: O2SAT 99
[2025-02-24 06:22] VITALS: BP 126/75
== END 2025-02-23 23:13 | disposition short-term general hospital (02) ==
LOC: ER 18:17
DX: R10.11 Right upper quadrant pain (principal); R94.5 Abnormal results of liver function studies; Z90.49 Acquired absence of other specified parts of digestive tract
CPT/HCPCS: 96361; 85025; 36415; 81025; 83690; 80053; 74177; 96375; 96374; 99285; Q9967; J2405; J7030